=== PATIENT | male | born 1970 | race Caucasian/White ===

== ENCOUNTER 2023-04-03 10:14 | Observation (INO) | payer BC, SELFPAY ==
[2023-04-03] VITALS (8 sets, daily range): BP systolic 119–140; BP diastolic 74–81; PULSE 86–118; RESP 15–20; TEMP 36.5–39.3; O2SAT 93–95; BMI 27.0; BMI 25.3
[2023-04-03 10:42] LABS: Coronavirus 19, PCR Not Detected (NotDetected); Influenza A, PCR Not Detected (NotDetected); Influenza B, PCR Not Detected (NotDetected)
--- NOTE | 2023-04-03 10:44 | ED_ITS ---
Discharge Plan Disposition Chief Complaint: Headache Referrals Follow up/Referrals: Provider,Referral, MD [Referring] - See instructions Clinical Impressions Clinical Impression: Acute hypoxemic respiratory failure Pneumonia Qualifiers: Pneumonia type: due to unspecified organism Laterality: right Lung location: lower lobe of lung Qualified Code(s): J18.9 - Pneumonia, unspecified organism Discharge ED Provider: Ignacio Cortes General Adult HPI General Chief complaint: Headache Stated complaint: headaches, lower back pain chills Time Seen by Provider: 04/03/23 10:17 History of Present Illness HPI narrative: 53-year-old male history of ankylosing spondylitis presenting with fever, rachel ise,, body aches, cough, decreased appetite. Symptoms have been going on for 4 days at this point. He has been taking Tylenol intermittently, this does not seem to help. Lower back does not radiate, no urinary symptoms, no vomiting or GI symptoms. No known sick contacts he knows of. Related Data Allergies Allergy/AdvReac Type Severity Reaction Status Date / Time No Known Allergies Allergy Verified 04/03/23 10:44 [facility] Disclaimer: The information contained in this section may have been updated after the patient was seen, as this information can be updated by other users. Social History Smoking Status: Former smoker alcohol intake: never current occupational status: employed Travel in the last 8 weeks: None ROS Obtained: Yes All systems reviewed & no additional complaints except as documented Physical Exam General General appearance: alert and in no apparent distress Head Head exam: atraumatic and normocephalic Eye Eye exam: Present normal appearance, PERRL and EOMI ENT ENT exam: Present mucous membranes moist Neck Neck exam: Present normal inspection, full ROM and trachea midline Respiratory Respiratory exam: Absent respiratory distress, wheezes, stridor, accessory muscle use or prolonged expiratory phase Cardiovascular Cardiovascular exam: Present normal rhythm Abdominal Exam Abdominal exam: Present soft; Absent distention, tenderness, guarding, rebound or rigidity Extremities Exam Extremities exam: Absent edema Neurological Exam Neurological exam: Present alert, oriented X3, CN II-XII intact and normal gait; Absent motor sensory deficit Skin Skin exam: Present warm and dry; Absent diaphoresis or erythema Medical Decision Making Medical Records Medical records reviewed: Yes I reviewed the patient's medical records. Phu Inquiry Pt receiving controlled substance: No Phu was queried for this patient: No Vital Signs: 04/03/23 10:15 02/07/24 12:17 04/03/23 12:30 Temperature 102.7 F H Temperature Source Oral Pulse Rate 103 H 95 H Pulse Rate [Left Radial] 118 H Respiratory Rate 15 Blood Pressure 133/81 122/78 Blood Pressure [Right Arm] 140/81 Blood Pressure Mean 93 88 Blood Pressure Mean [Right Arm] 100 02 Sat by Pulse Oximetry 95 93 L 93 L Oxygen Delivery Method Room Air Room Air Room Air Lab Data Lab Results 04/03/23 10:27: SARS-CoV-2 (PCR) Not detected, Influenza A Untype (PCR) Not detected, Influenza Type B (PCR) Not detected 04/03/23 12:17: WBC 13.8 H, RBC 4.22 L, Hgb 13.8 L, Hct 39.4 L, MCV 93.4, MCH 32.7 H, MCHC 34.9, RDW 12.7, Plt Count 381, MPV 7.8, Neut % (Auto) 81.9 H, Lymph % (Auto) 9.3 L, [place] % (Auto) 7.9, Eos % (Auto) 0.5, Baso % (Auto) 0.3, Neut # (Auto) 11.3 H, Lymph # (Auto) 1.3, [place] # (Auto) 1.1 H, Eos # (Auto) 0.1, Baso # (Auto) 0.0, Sodium 132 L, Potassium 3.4 L, Chloride 102, Carbon Dioxide 24, Anion Gap 9.4, BUN 12, Creatinine 1.30 H, Estimated Creat Clear 87, Estimated GFR 58 L, Est GFR ( Amer) 70, Glucose 132 H, Calcium 8.6, Total Bilirubin 1.9 H, AST 43, ALT 43, Alkaline Phosphatase 129 H, C-Reactive Protein 266.4 H, Total Protein 7.4, Albumin 3.5, Globulin 3.9 H, Albumin/Globulin Ratio 0.9 L 04/03/23 12:35: Lactate 1.4 04/03/23 12:17 04/03/23 12:17 Orders (Tests/Meds): ED MEDICATIONS Generic Name Dose Route Start Last Admin Trade Name Freq PRN Reason Stop Dose Admin Ceftriaxone Sodium 2 gm/ 100 mls @ 200 mls/hr 04/03/23 12:47 Sodium Chloride IV 04/03/23 13:16 ONCE ONE Discontinued Medications Generic Name Dose Route Start Last Admin Trade Name Ameya PRN Reason Stop Dose Admin Acetaminophen 1,000 mg 04/03/23 10:45 04/03/23 10:45 Acetaminophen 500mg Tab PO 04/03/23 10:46 1,000 mg ONCE ONE Administration Dexamethasone 10 mg 04/03/23 10:39 04/03/23 10:45 Dexamethasone 4mg Tablet PO 04/03/23 10:40 10 mg ONCE ONE Administration Lactated Ringer's 1,000 mls @ 999 mls/hr 04/03/23 11:47 04/03/23 11:56 Lactated Ringer's 1000 Ml Bag IV 04/03/23 12:47 999 mls/hr .Q1H1M ONE Administration Azithromycin 500 mg/ Sodium 250 mls @ 250 mls/hr 04/03/23 12:48 Chloride IV 04/03/23 12:49 ONCE ONE Ibuprofen 600 mg 04/03/23 10:45 04/03/23 10:45 Ibuprofen 600 Mg Tablet PO 04/03/23 10:46 600 mg ONCE ONE Administration Ondansetron HCl 4 mg 04/03/23 11:47 04/03/23 11:56 Ondansetron 4mg/2ml Vial IV 04/03/23 11:48 4 mg ONCE ONE Administration ORDERS Category Date Time Status CXR --portable [XR chest portable] Stat Exams 04/03/23 11:47 Completed CBC w/Auto Diff [Complete Blood Count Auto Diff] Stat Lab 04/03/23 12:17 Results CMP [Comprehensive Metabolic Panel] Stat Lab 04/03/23 12:17 Completed CRP [C-Reactive Protein] Stat Lab 04/03/23 12:17 Completed ESR [Erythrocyte Sedimentation Rate] Stat Lab 04/03/23 12:17 Results Lactic Acid Stat Lab 04/03/23 12:35 Completed Rapid PCR Covid and Flu A/B Stat Lab 04/03/23 10:27 Completed Blood Culture Stat Micro 04/03/23 12:35 Received Medical Decision Narrative: 53-year-old male history of ankylosing spondylitis presenting with fever, mal aise,, body aches, cough, decreased appetite. Symptoms have been going on for 4 days at this point. He has been taking Tylenol intermittently, this does not seem to help. Lower back does not radiate, no urinary symptoms, no vomiting or GI symptoms. No known sick contacts he knows of. History was obtained via conversation with patient. On arrival, patient hemodynamically stable, alert, oriented x4, appropriate, GCS 15, moving all extremities spontaneously, pupils equal and reactive to light. Full physical exam performed and significant for febrile, tachycardic man who appears to be tired, but no acute distress. Lungs are clear to auscultation bilaterally. Heart exam otherwise normal. Moist mucous membranes. Differential includes viral syndrome, among others. Patient was given Decadron, Tylenol, Motrin, for symptomatic management and correction of underlying abnormalities. Workup independently interpreted and significant for leukocytosis 14. Lactate negative. Patient does have KAIDEN with creatinine 1.3 and CRP elevated 260. COVID/flu negative. Chest x-ray with right lower lobe pneumonia. see radiology read for full review of final results. On reevaluation, patient was given azithromycin and ceftriaxone. Hospital medicine contacted and case was discussed at length, see note for recommendations and admission. Given patient presentation, workup, history, this most likely represents right lower lobe pneumonia. Because patient high risk for clinical decompensation, deemed appropriate for inpatient admission. Results were relayed to patient who voiced understanding and patient was agreeable to inpatient admission and management. Patient was admitted to the hospital for further definitive management. Critical Care Critical Care Time Critical Care Time: No
[2023-04-03] MEDS: DEXAMETHASONE 4MG TABLET 10 MG PO (10:45)
[2023-04-03] MEDS: IBUPROFEN 600 MG TABLET PO (10:45)
[2023-04-03] MEDS: ACETAMINOPHEN 500MG TAB 1000 MG PO (10:45)
--- NOTE | 2023-04-03 11:47 | XR_ITS ---
FINAL REPORT CLINICAL HISTORY: cough, fever, back pain FINDINGS: SINGLE-VIEW CHEST The heart size is normal. The mediastinum is normal. There is right base opacity consistent with pneumonia. There is no pneumothorax. IMPRESSION: Right base pneumonia. Reviewed, Interpreted and Dictated by Mitul Kidd III, MD Transcribed by Adri Devries Authenticated and [facility]
[2023-04-03] MEDS: ONDANSETRON 4MG/2ML VIAL 4 MG IV (11:56)
[2023-04-03] MEDS: LACTATED RINGERS 1000ML 1,000 ML 999 ML IV (11:56)
[2023-04-03 12:34] LABS: Basophils % 0.3 % (0.1-2.0); Eosinophils # 0.1 K/mm3 (0.0-0.4); Eosinophils % 0.5 % (0.1-12.0); Hematocrit 39.4 % (42.0-52.0); Hemoglobin 13.8 g/dL (14.1-18.0); Lymphocytes # 1.3 K/mm3 (0.7-4.5); Lymphocytes % 9.3 % (10-50); Mean Corpuscular HGB Conc 34.9 g/dL (31.8-35.4); Mean Corpuscular Hemoglobin 32.7 pg (27.0-31.2); Mean Corpuscular Volume 93.4 fl (80-94); Mean Platelet Volume 7.8 fl (7.4-10.4); Monocytes # 1.1 K/mm3 (0.1-1.0); Monocytes % 7.9 % (1.7-9.3); Neutrophils # 11.3 K/mm3 (1.8-7.8); Neutrophils % 81.9 % (37.0-80.0); Platelet Count 381 K/mm3 (142-424); Red Blood Count 4.22 M/mm3 (4.60-6.20); Red Cell Distribution Width 12.7 % (11.5-17.5); White Blood Count 13.8 K/mm3 (4.8-10.8)
[2023-04-03 12:41] LABS: Chloride 102 mmol/L (98-107); Potassium 3.4 mmoL/L (3.5-5.1); Sodium 132 mmol/L (136-145)
[2023-04-03 12:43] LABS: Blood Urea Nitrogen 12 mg/dl (9-20); Creatinine Clearance Estimated 87 mL/min (50-200); Estimated Glomerular Filt Rate 58 ml/min (>60); GFR (African American) 70 ML/MIN (>60)
[2023-04-03 12:44] LABS: Alanine Aminotransferase 43 U/L (12-78); Albumin Level 3.5 g/dl (3.5-5.0); Albumin/Globulin Ratio 0.9 (1.1-1.8); Alkaline Phosphatase 129 U/L (38-126); Anion Gap 9.4 mEq/L (5-15); Aspartate Amino Transferase 43 U/L (17-59); Bilirubin,Total 1.9 mg/dl (0.2-1.3); Calcium 8.6 mg/dl (8.4-10.2); Carbon Dioxide 24 mmol/L (22.0-30.0); Globulin 3.9 g/dL (1.3-3.2); Glucose 132 mg/dl (74-100); Total Protein,Serum 7.4 g/dl (6.3-8.2)
[2023-04-03 12:54] LABS: C-Reactive Protein 266.4 mg/L (0-4)
[2023-04-03 12:55] LABS: Lactic Acid 1.4 mmol/L (0.7-2.1)
--- NOTE | 2023-04-03 13:02 | PC.NURSE ---
on phone with TREY
[2023-04-03] MEDS: CEFTRIAXONE SODIUM 2 GM in 0.9 % SODIUM CHLORIDE 100 ML IV (13:08)
--- NOTE | 2023-04-03 13:09 | P.HP_ITS ---
History of Present Illness *Admission Date: 04/03/23 *Reason for visit:: weakness, fever *History of present illness: Mr. Daniel is a 53-year-old male with history of ankylosing spondylitis who presented to the ER with worsening fever, body aches, cough and malaise. States symptoms been going on for 4 to 5 days. Has been taking some Tylenol with no significant improvement. Given his worsening symptoms, he reached out to his PCP who recommended he come to the ER for evaluation. Denies nausea or vomiting. No known sick contacts. No syncope. Workup in the ER concerning for sepsis with tachycardia, fever, leukocytosis. Found to have right lower lobe pneumonia on chest imaging. Medicine consulted for admission. Upon arrival to the floor, patient states he is feeling somewhat better. Started on ceftriaxone and azithromycin. [facility] Disclaimer: The information contained in this section may have been updated after the patient was seen, as this information can be updated by other users. Medical History (Updated 04/03/23 @ 16:55 by Jonathan Bravo MD) Ankylosing spondylitis Anxiety Complete tear of medial collateral ligament of knee Hypertension Immunocompromised state Surgical History History of tonsillectomy Status post labral repair of shoulder Family History H/O heart artery stent Mother Social History Smoking Status: Former smoker alcohol intake: never current occupational status: employed Travel in the last 8 weeks: None Review of Systems Review of Systems Review of systems (narrative): 14 point review of systems performed, pertinent positives and negatives as per HPI Meds Home Medications and Allergies Home Medications Medication Instructions Recorded Confirmed Type adalimumab 40 mg/0.8 mL 40 mg SQ WEEKLY 04/03/23 04/03/23 History subcutaneous syringe kit (Humira) amlodipine 5 mg tablet 5 mg PO DAILY 04/03/23 04/03/23 History meclizine 25 mg tablet 12.5 mg PO DAILY PRN allergies 04/03/23 04/03/23 History melatonin 10 mg disintegrating 10 mg PO HS 04/03/23 04/03/23 History tablet quetiapine 100 mg tablet (Seroquel) 100 mg PO HS 04/03/23 04/03/23 History New Prescriptions to Start Prescriptions: Allergies Allergy/AdvReac Type Severity Reaction Status Date / Time No Known Allergies Allergy Verified 04/03/23 10:44 Exam Data for Last 24 hours Vital signs and Labs for Last 24 Hours: Temp Pulse Resp BP Pulse Ox O2 Del Method 102.7 F H 95 H 15 122/78 93 L Room Air 04/03/23 10:15 04/03/23 12:30 04/03/23 10:15 04/03/23 12:30 04/03/23 12:30 04/03/23 12:30 Laboratory Results - last 24 hr 04/03/23 10:27: SARS-CoV-2 (PCR) Not detected, Influenza A Untype (PCR) Not detected, Influenza Type B (PCR) Not detected 04/03/23 12:17: WBC 13.8 H, RBC 4.22 L, Hgb 13.8 L, Hct 39.4 L, MCV 93.4, MCH 32.7 H, MCHC 34.9, RDW 12.7, Plt Count 381, MPV 7.8, Neut % (Auto) 81.9 H, Lymph % (Auto) 9.3 L, [place] % (Auto) 7.9, Eos % (Auto) 0.5, Baso % (Auto) 0.3, Neut # (Auto) 11.3 H, Lymph # (Auto) 1.3, [place] # (Auto) 1.1 H, Eos # (Auto) 0.1, Baso # (Auto) 0.0, Sodium 132 L, Potassium 3.4 L, Chloride 102, Carbon Dioxide 24, Anion Gap 9.4, BUN 12, Creatinine 1.30 H, Estimated Creat Clear 87, Estimated GFR 58 L, Est GFR ( Amer) 70, Glucose 132 H, Calcium 8.6, Total Bilirubin 1.9 H, AST 43, ALT 43, Alkaline Phosphatase 129 H, C-Reactive Protein 266.4 H, Total Protein 7.4, Albumin 3.5, Globulin 3.9 H, Albumin/Globulin Ratio 0.9 L 04/03/23 12:35: Lactate 1.4 I & O for Last 24 hours: Intake & Output 03/31/23 04/01/23 04/02/23 04/03/23 23:59 23:59 23:59 23:59 Weight 92.986 kg Constitutional Constitutional: no acute distress *Routine HEENT Exam Head: Present normocephalic Eye: Present EOMI and PERRL ENT: Present mucous membranes moist *Routine Neck Exam Neck: Present supple; Absent lymphadenopathy *Routine Respiratory Exam Respiratory: Present crackles (Right lower lung, posterior lung field) and normal respiratory effort; Absent rhonchi or wheezes *Routine Cardiovascular Exam Cardiovascular: Present RRR *Routine Abdominal Exam Abdominal: Present soft and normoactive bowel sounds; Absent tenderness *Routine Rectal Exam Rectal:: deferred *Routine Genitalia Exam Genitalia:: deferred *Routine Extremities Exam Extremities: Absent cyanosis, clubbing or edema *Routine Skin Exam Skin: Present warm; Absent rash *Routine Neurological Exam Neurological: Present alert, oriented X3 and moving all extremities; Absent altered mental status Assessment and Plan *Assessment and plan (1) Pneumonia: Status: Acute Qualifiers: Laterality: right Lung location: lower lobe of lung Pneumonia type: due to unspecified organism Qualified Code(s): J18.9 - Pneumonia, unspecified organism Category: Medical Code(s): J18.9 - Pneumonia, unspecified organism (2) Sepsis: Status: Acute Qualifiers: Sepsis acute organ dysfunction status: without acute organ dysfunction Sepsis type: sepsis due to unspecified organism Qualified Code(s): A41.9 - Sepsis, unspecified organism Category: Medical Code(s): A41.9 - Sepsis, unspecified organism (3) Hypertension: Status: Chronic Qualifiers: Hypertension type: primary hypertension Qualified Code(s): I10 - Essential (primary) hypertension Category: Medical Code(s): I10 - Essential (primary) hypertension (4) Immunocompromised state: Status: Chronic Category: Medical Code(s): D84.9 - Immunodeficiency, unspecified Plan 53-year-old male who presented with symptoms of fever and chills. Found to have pneumonia in the ER. Discussed case with ER physician, request admission for IV antibiotics and risk for decompensation given patient's immunocompromise state. Medicine agreed to admit. Meeting sepsis criteria. Problems addressed as follows: Sepsis secondary to pneumonia -Tachycardia, fever 102.7, white cell count 13.8. Chest imaging personally reviewed, right lower lobe consolidation and airspace disease on chest x-ray. -Continue ceftriaxone and azithromycin IV daily. -CRP elevated to 266. Repeat CRP, CBC, CMP, magnesium ordered for the morning -PSI/port a 53 however in light of his immunocompromise state on Humira, necessitates inpatient admission for close monitoring prior to transitioning to oral antibiotics for outpatient therapy Ankylosing spondylitis: Hold Humira in the setting of active infection Hypertension: Hold amlodipine in the setting of normotensive state and sepsis Continue Seroquel and melatonin nightly for sleep Full code Regular diet PLOV
--- NOTE | 2023-04-03 13:22 | PC.NURSE ---
report called to Maria G on second floor
[2023-04-03 13:44] LABS: Erythrocyte Sedimentation Rate 111 mm/hr (0-20)
[2023-04-03] MEDS: AZITHROMYCIN 500 MG in 0.9 % SODIUM CHLORIDE 250 ML 250 MG IV (14:39)
--- NOTE | 2023-04-03 16:35 | PC.NURSE ---
Pt alert and oriented. VSS. Afebrile. On room air. Denies pain and nausea. Voiding via urinal. Tolerating oral intake. Antibiotics administered per APR.
[2023-04-03] MEDS: QUETIAPINE 100MG TABLET 100 MG PO (20:24)
[2023-04-03] MEDS: MELATONIN 10 EACH PO (20:24)
[2023-04-04] VITALS: BP 123/74; PULSE 85; RESP 18; TEMP 36.9; O2SAT 94
[2023-04-04 04:00] VITALS: BP 127/69; PULSE 81; RESP 18; TEMP 36.8; O2SAT 94; BMI 25.9
[2023-04-04 07:23] LABS: Chloride 107 mmol/L (98-107); Potassium 3.8 mmoL/L (3.5-5.1); Sodium 138 mmol/L (136-145)
[2023-04-04 07:25] LABS: Alanine Aminotransferase 41 U/L (12-78); Aspartate Amino Transferase 40 U/L (17-59); Blood Urea Nitrogen 17 mg/dl (9-20); Creatinine Clearance Estimated 99 mL/min (50-200); Estimated Glomerular Filt Rate 70 ml/min (>60); GFR (African American) 85 ML/MIN (>60)
[2023-04-04 07:26] LABS: Albumin Level 3.3 g/dl (3.5-5.0); Albumin/Globulin Ratio 0.9 (1.1-1.8); Alkaline Phosphatase 140 U/L (38-126); Anion Gap 9.8 mEq/L (5-15); Bilirubin,Total 0.7 mg/dl (0.2-1.3); Carbon Dioxide 25 mmol/L (22.0-30.0); Globulin 3.8 g/dL (1.3-3.2); Glucose 168 mg/dl (74-100); Magnesium 2.1 mg/dl (1.6-2.3); Total Protein,Serum 7.1 g/dl (6.3-8.2)
[2023-04-04 07:38] LABS: C-Reactive Protein 220.6 mg/L (0-4)
[2023-04-04 07:39] LABS: Basophils % 0.1 % (0.1-2.0); Eosinophils % 0.2 % (0.1-12.0); Hematocrit 39.1 % (42.0-52.0); Hemoglobin 13.3 g/dL (14.1-18.0); Lymphocytes # 1.3 K/mm3 (0.7-4.5); Mean Corpuscular HGB Conc 34.1 g/dL (31.8-35.4); Mean Corpuscular Hemoglobin 31.1 pg (27.0-31.2); Mean Corpuscular Volume 91.4 fl (80-94); Mean Platelet Volume 7.7 fl (7.4-10.4); Monocytes % 6.3 % (1.7-9.3); Neutrophils # 13.8 K/mm3 (1.8-7.8); Neutrophils % 85.4 % (37.0-80.0); Platelet Count 463 K/mm3 (142-424); Red Blood Count 4.28 M/mm3 (4.60-6.20); Red Cell Distribution Width 12.6 % (11.5-17.5); White Blood Count 16.2 K/mm3 (4.8-10.8)
[2023-04-04 07:58] LABS: MANUAL DIFFERENTIAL MANUAL DIFFERENTIAL (MANUAL DIFF)
[2023-04-04 08:00] VITALS: BP 123/76; PULSE 85; RESP 18; TEMP 37.1; O2SAT 95; O2SAT 98
--- NOTE | 2023-04-04 08:38 | P.DS_ITS ---
General Admission date:: 04/03/23 Discharge date: 04/04/23 HPI HPI HPI: Mr. Daniel is a 53-year-old male with history of ankylosing spondylitis who presented to the ER with worsening fever, body aches, cough and malaise. States symptoms been going on for 4 to 5 days. Has been taking some Tylenol with no significant improvement. Given his worsening symptoms, he reached out to his PCP who recommended he come to the ER for evaluation. Denies nausea or vomiting. No known sick contacts. No syncope. Workup in the ER concerning for sepsis with tachycardia, fever, leukocytosis. Found to have right lower lobe pneumonia on chest imaging. Medicine consulted for admission. Upon arrival to the floor, patient states he is feeling somewhat better. Started on ceftriaxone and azithromycin. Hospital Course Hospital Course Hospital Course: 53-year-old male who presented with symptoms of fever and chills. Found to have pneumonia in the ER. Discussed case with ER physician, request admission for IV antibiotics and risk for decompensation given patient's immunocompromise state. Medicine agreed to admit. Meeting sepsis criteria. Symptoms improved significantly over admission. Remained stable on room air. No fever over 24 hours. White cell count still elevated but given stability clinically, will transition to oral antibiotics to complete therapy. Problems addressed as follows: Sepsis secondary to pneumonia -Tachycardia, fever 102.7, white cell count 13.8. Chest imaging personally reviewed, right lower lobe consolidation and airspace disease on chest x-ray. Crackles on exam. Initiated on ceftriaxone and azithromycin. Received 48 hours of IV antibiotics. Will transition to oral azithromycin to complete 3-day course of 500 mg daily. Complete 5 days of cefdinir for total of 7 days of cephalosporin therapy. CRP improving but still quite elevated. Given clinical stability, anticipate resolution with antibiotic therapy. Would benefit from repeat imaging in 2 to 4 weeks to monitor for resolution. PSI/port a 52. Risk class II. Recommend holding Humira until infection resolves. Has follow-up with rheumatology next week per his report. Ankylosing spondylitis: Hold Humira in the setting of active infection Hypertension: Held amlodipine in the setting of normotensive state and sepsis. resume at discharge Continue Seroquel and melatonin nightly for sleep Stable for discharge home. Spent 30 minutes in discharge counseling, documentation, chart review, and direct care with patient. Exam Data for Last 24 hours Vital signs and Labs for Last 24 Hours: Temp Pulse Resp BP Pulse Ox O2 Del Method 98.8 F 85 18 123/76 95 Room Air 04/04/23 08:00 04/04/23 08:00 04/04/23 08:00 04/04/23 08:00 04/04/23 08:00 04/04/23 08:38 Laboratory Results - last 24 hr 04/03/23 10:27: SARS-CoV-2 (PCR) Not detected, Influenza A Untype (PCR) Not detected, Influenza Type B (PCR) Not detected 04/03/23 12:17: WBC 13.8 H, RBC 4.22 L, Hgb 13.8 L, Hct 39.4 L, MCV 93.4, MCH 32.7 H, MCHC 34.9, RDW 12.7, Plt Count 381, MPV 7.8, Neut % (Auto) 81.9 H, Lymph % (Auto) 9.3 L, Garrard % (Auto) 7.9, Eos % (Auto) 0.5, Baso % (Auto) 0.3, Neut # (Auto) 11.3 H, Lymph # (Auto) 1.3, Garrard # (Auto) 1.1 H, Eos # (Auto) 0.1, Baso # (Auto) 0.0, ESR 111 H, Sodium 132 L, Potassium 3.4 L, Chloride 102, Carbon Dioxide 24, Anion Gap 9.4, BUN 12, Creatinine 1.30 H, Estimated Creat Clear 87, Estimated GFR 58 L, Est GFR ( Amer) 70, Glucose 132 H, Calcium 8.6, Total Bilirubin 1.9 H, AST 43, ALT 43, Alkaline Phosphatase 129 H, C-Reactive Protein 266.4 H, Total Protein 7.4, Albumin 3.5, Globulin 3.9 H, Albumin/Globulin Ratio 0.9 L 04/03/23 12:35: Lactate 1.4 04/04/23 06:43: WBC 16.2 H, RBC 4.28 L, Hgb 13.3 L, Hct 39.1 L, MCV 91.4, MCH 31.1, MCHC 34.1, RDW 12.6, Plt Count 463 H, MPV 7.7, Neut % (Auto) 85.4 H, Lymph % (Auto) 8.0 L, Garrard % (Auto) 6.3, Eos % (Auto) 0.2, Baso % (Auto) 0.1, Neut # (Auto) 13.8 H, Lymph # (Auto) 1.3, Garrard # (Auto) 1.0, Eos # (Auto) 0.0, Baso # (Auto) 0.0, Sodium 138, Potassium 3.8, Chloride 107, Carbon Dioxide 25, Anion Gap 9.8, BUN 17 D, Creatinine 1.10, Estimated Creat Clear 99, Estimated GFR 70, Est GFR ( Amer) 85 D, Glucose 168 H D, Calcium 9.0, Magnesium 2.1, Total Bilirubin 0.7, AST 40, ALT 41, Alkaline Phosphatase 140 H, C-Reactive Protein 220.6 H, Total Protein 7.1, Albumin 3.3 L, Globulin 3.8 H, Albumin/Globulin Ratio 0.9 L I & O for Last 24 hours: Intake & Output 04/01/23 04/02/23 04/03/23 04/04/23 23:59 23:59 23:59 23:59 Intake Total 1220 / 1220 Output Total 650 / 650 0 / 0 Balance 570 / 570 0 / 0 Weight 87.203 kg 88.813 kg Constitutional Constitutional: no acute distress *Routine HEENT Exam Head: Present normocephalic Eye: Present EOMI and PERRL ENT: Present mucous membranes moist *Routine Neck Exam Neck: Present supple; Absent lymphadenopathy *Routine Respiratory Exam Respiratory: Present crackles (right lower lobe) and normal respiratory effort; Absent rhonchi or wheezes *Routine Cardiovascular Exam Cardiovascular: Present RRR *Routine Abdominal Exam Abdominal: Present soft and normoactive bowel sounds; Absent tenderness *Routine Rectal Exam Patient deferred: visual exam *Routine Exam Patient deferred: penile exam *Routine Extremities Exam Extremities: Absent cyanosis, clubbing or edema *Routine Skin Exam Skin: Present warm; Absent rash *Routine Neurological Exam Neurological: Present alert, oriented X3 and moving all extremities; Absent altered mental status Results Data Completed and Pending Labs on day of discharge: Labs from last 24 hours 04/04/23 04/03/23 04/03/23 06:43 12:35 12:17 WBC 16.2 H 13.8 H RBC 4.28 L 4.22 L Hgb 13.3 L 13.8 L Hct 39.1 L 39.4 L MCV 91.4 93.4 MCH 31.1 32.7 H MCHC 34.1 34.9 RDW 12.6 12.7 Plt Count 463 H 381 MPV 7.7 7.8 Neut % (Auto) 85.4 H 81.9 H Lymph % (Auto) 8.0 L 9.3 L Garrard % (Auto) 6.3 7.9 Eos % (Auto) 0.2 0.5 Baso % (Auto) 0.1 0.3 Neut # (Auto) 13.8 H 11.3 H Lymph # (Auto) 1.3 1.3 Garrard # (Auto) 1.0 1.1 H Eos # (Auto) 0.0 0.1 Baso # (Auto) 0.0 0.0 ESR 111 H Sodium 138 132 L Potassium 3.8 3.4 L Chloride 107 102 Carbon Dioxide 25 24 Anion Gap 9.8 9.4 BUN 17 D 12 Creatinine 1.10 1.30 H Estimated Creat Clear 99 87 Estimated GFR 70 58 L Est GFR ( Amer) 85 D 70 Glucose 168 H D 132 H Lactate 1.4 Calcium 9.0 8.6 Magnesium 2.1 Total Bilirubin 0.7 1.9 H AST 40 43 ALT 41 43 Alkaline Phosphatase 140 H 129 H C-Reactive Protein 220.6 H 266.4 H Total Protein 7.1 7.4 Albumin 3.3 L 3.5 Globulin 3.8 H 3.9 H Albumin/Globulin Ratio 0.9 L 0.9 L SARS-CoV-2 (PCR) Influenza A Untype (PCR) Influenza Type B (PCR) 04/03/23 10:27 WBC RBC Hgb Hct MCV MCH MCHC RDW Plt Count MPV Neut % (Auto) Lymph % (Auto) Garrard % (Auto) Eos % (Auto) Baso % (Auto) Neut # (Auto) Lymph # (Auto) Garrard # (Auto) Eos # (Auto) Baso # (Auto) ESR Sodium Potassium Chloride Carbon Dioxide Anion Gap BUN Creatinine Estimated Creat Clear Estimated GFR Est GFR ( Amer) Glucose Lactate Calcium Magnesium Total Bilirubin AST ALT Alkaline Phosphatase C-Reactive Protein Total Protein Albumin Globulin Albumin/Globulin Ratio SARS-CoV-2 (PCR) Not detected Influenza A Untype (PCR) Not detected Influenza Type B (PCR) Not detected DS: Diagnosis Discharge Diagnosis (1) Pneumonia: Status: Acute Code(s): J18.9 - Pneumonia, unspecified organism Qualifiers: Laterality: right Lung location: lower lobe of lung Pneumonia type: due to unspecified organism Qualified Code(s): J18.9 - Pneumonia, unspecified organism (2) Sepsis: Status: Acute Code(s): A41.9 - Sepsis, unspecified organism Qualifiers: Sepsis acute organ dysfunction status: without acute organ dysfunction Sepsis type: sepsis due to unspecified organism Qualified Code(s): A41.9 - Sepsis, unspecified organism (3) Hypertension: Status: Chronic Code(s): I10 - Essential (primary) hypertension Qualifiers: Hypertension type: primary hypertension Qualified Code(s): I10 - Essential (primary) hypertension (4) Immunocompromised state: Status: Chronic Code(s): D84.9 - Immunodeficiency, unspecified Meds Home Medications and Allergies Home Medications Medication Instructions Recorded Confirmed Type adalimumab 40 mg/0.8 mL 40 mg SQ WEEKLY 04/03/23 04/03/23 History subcutaneous syringe kit (Humira) amlodipine 5 mg tablet 5 mg PO DAILY 04/03/23 04/03/23 History meclizine 25 mg tablet 12.5 mg PO DAILY PRN allergies 04/03/23 04/03/23 History melatonin 10 mg disintegrating 10 mg PO HS 04/03/23 04/03/23 History tablet quetiapine 100 mg tablet (Seroquel) 100 mg PO HS 04/03/23 04/03/23 History azithromycin 500 mg tablet 500 mg PO DAILY 1 day #1 tab 04/04/23 Rx cefdinir 300 mg capsule 300 mg PO BID 5 days #10 caps 04/04/23 Rx New Prescriptions to Start Prescriptions: Jonathan Nolen cefdinir Jonathan Bravo Allergies Allergy/AdvReac Type Severity Reaction Status Date / Time No Known Allergies Allergy Verified 04/03/23 10:44 Discharge Plan Disposition Patient Disposition: Home, Self-Care Condition: Fair Follow up Plan Follow up with: Ernestine Arora [Primary Care Provider] - 04/16/23 9:00 am Prescriptions/Medication Reconciliation: New azithromycin 500 mg tablet 500 mg PO DAILY 1 Days Qty: 1 0RF Rx Instructions: take dose on 04/05/23 cefdinir 300 mg capsule 300 mg PO BID 5 Days Qty: 10 0RF Rx Instructions: first dose morning of 04/04/23 Continued amlodipine 5 mg Tablet 5 mg PO DAILY quetiapine [Seroquel] 100 mg Tablet 100 mg PO HS meclizine 25 mg Tablet 12.5 mg PO DAILY PRN (Reason: allergies) melatonin 10 mg Tablet,Disintegrating 10 mg PO HS Held Humira 40 mg/0.8 mL Syringe Kit 40 mg SQ WEEKLY Hold Instructions: 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 Problem Reconciliation Problems Reviewed?: Yes Patient Discharge Instructions ACTIVITY: Continue current activity DIET: continue same diet Stand Alone Forms: [facility] Work Release Patient Instructions: DI for Pneumonia -- Adult, DI for Sepsis -- Adult Providers Primary Care Provider: Ernestine Arora Admit Provider: Jonathan Bravo Attending Provider: Jonathan Bravo
[2023-04-04] MEDS: CEFTRIAXONE SODIUM 1 GM in 0.9 % SODIUM CHLORIDE 50 ML IV (10:02)
[2023-04-04 10:49] LABS: Lymphocytes % 14 % (10-50); Monocytes % 4 % (2-9); Neutrophils % 82 % (42-76); Platelet Estimate Normal; RBC Morphology Normal; Total Cells Counted 100
[2023-04-04] MEDS: AZITHROMYCIN 500 MG in 0.9 % SODIUM CHLORIDE 250 ML 250 MG IV (11:51)
--- NOTE | 2023-04-05 13:23 | CARE MANAGER ---
Contacted patient related to hospital discharge. He states he is doing better. He picked up all his meds and is aware of follow up appointment. [facility]
== END 2023-04-04 13:15 | disposition home or self-care (01) ==
LOC: ER 11:22 → 2ND 13:13
PROVIDERS: Admitting Provider Internal Medicine Adolescent Medicine; Emergency Provider Emergency Medicine; PCP Family Medicine; Visit Provider Internal Medicine Adolescent Medicine
DX: J18.9 Pneumonia, unspecified organism (principal); Z87.891 Personal history of nicotine dependence; N17.9 Acute kidney failure, unspecified; A41.9 Sepsis, unspecified organism; I10 Essential (primary) hypertension; D84.9 Immunodeficiency, unspecified
CPT/HCPCS: 36415; 71045; 80053; 83605; 83735; 85007; 85025; 85651; 86140; 87040; 87636; 99285; G0378; J0456; J0696; J2405

== ENCOUNTER 2023-04-27 10:29 | Observation (INO) | payer BC, SELFPAY ==
[2023-04-27] VITALS (11 sets, daily range): BP systolic 123–161; BP diastolic 78–115; PULSE 68–101; RESP 15–18; TEMP 36.7–36.8; O2SAT 94–98; BMI 25.7
--- NOTE | 2023-04-27 10:28 | ECG_ITS ---
APPROVED REPORT Exam: Resting ECG HR:128 bpm ECG Measurements Heart Rate 128 AXES NC 175 P 71 QRSd 104 QRS -19 QT 396 T 73 QTc 472 Conclusion SINUS TACHYCARDIA O/w NORMAL ECG UNCONFIRMED REPORT Electronically signed by : Naseem Santana MD 04/27/2023 17:02:15
[2023-04-27] MEDS: ACETAMINOPHEN 1,000MG/100ML VIAL 1000 MG IV (10:34)
[2023-04-27] MEDS: KETOROLAC 30MG/ML VIAL 30 MG IV (10:34)
--- NOTE | 2023-04-27 10:38 | CT_ITS ---
PROCEDURE INFORMATION: Exam: CTA Chest With Contrast Exam date and time: 04/27/2023 11:32 AM Age: 53 years old Clinical indication: Chest wall pain; Additional info: Severe L chest/flank pain rad to back TECHNIQUE: Imaging protocol: Computed tomographic angiography of the chest with contrast. Exam focused on the arteries. 3D rendering (Not supervised by radiologist): MIP and/or 3D reconstructed images were created by the technologist. Total images: 303 Radiation optimization: All CT scans at this facility use at least one of these dose optimization techniques: automated exposure control; mA and/or kV adjustment per patient size (includes targeted exams where dose is matched to clinical indication); or iterative reconstruction. Contrast material: ISOVUE; Contrast volume: 100 ml; Contrast route: INTRAVENOUS (IV); COMPARISON: CR XR CHEST PORTABLE 04/03/2023 11:49 AM FINDINGS: Pulmonary arteries: Filling defects present within the segmental and subsegmental pulmonary arteries to both lung bases, consistent with pulmonary emboli. Aorta: No evidence of aortic dissection. Lungs: Filling defect present within the pulmonary artery to the right middle lobe as well. Atelectatic changes noted within both lung bases and right middle lobe. Pleural spaces: Unremarkable. No pneumothorax. No pleural effusion. Heart: No evidence of right heart strain. Lymph nodes: Unremarkable. No enlarged lymph nodes. Diaphragm: There is nonspecific elevation of the right hemidiaphragm. Bones/joints: The thoracic spine demonstrates mild degenerative changes at multiple levels. Soft tissues: Gynecomastia is noted. IMPRESSION: 1. Pulmonary emboli present within the segmental and subsegmental arteries to both lung bases and right middle lobe. 2. No evidence of right heart strain. 3. No evidence of aortic dissection. 4. Atelectatic changes noted within both lung bases and right middle lobe.
--- NOTE | 2023-04-27 10:38 | CT_ITS ---
PROCEDURE INFORMATION: Exam: CTA Abdomen and Pelvis With Contrast Exam date and time: 04/27/2023 11:32 AM Age: 53 years old Clinical indication: Abdominal pain; Flank; Left upper quadrant (luq); Additional info: Severe L chest/flank pain rad to back TECHNIQUE: Imaging protocol: Computed tomographic angiography of the abdomen and pelvis with contrast. Exam focused on the arteries. 3D rendering (Not supervised by radiologist): MIP and/or 3D reconstructed images were created by the technologist. Total images: 938 Radiation optimization: All CT scans at this facility use at least one of these dose optimization techniques: automated exposure control; mA and/or kV adjustment per patient size (includes targeted exams where dose is matched to clinical indication); or iterative reconstruction. Contrast material: ISOVUE; Contrast volume: 100 ml; Contrast route: INTRAVENOUS (IV); COMPARISON: CT ANGIO CHEST PE PROTOCOL 04/27/2023 11:32 AM FINDINGS: Aorta: No evidence of aortic dissection. Celiac trunk and mesenteric arteries: No occlusion or significant stenosis. Renal arteries: No occlusion or significant stenosis. Right iliac arteries: No occlusion or significant stenosis. Left iliac arteries: No occlusion or significant stenosis. Liver: There is a diffuse decrease in hepatic parenchymal density, consistent with mild fatty infiltration. Gallbladder and bile ducts: Unremarkable. No calcified stones. No ductal dilation. Pancreas: Unremarkable. No mass. No ductal dilation. Spleen: Unremarkable. No splenomegaly. Adrenal glands: Unremarkable. No mass. Kidneys and ureters: No renal calcifications or obstructive uropathy. Stomach and bowel: Mild thickening of the dean of the rectosigmoid colon consistent with mild colitis. Mild diverticulosis is present in the distal colon. Appendix: No evidence of appendicitis. Intraperitoneal space: Unremarkable. No free air. No significant fluid collection. Lymph nodes: Unremarkable. No enlarged lymph nodes. Urinary bladder: Unremarkable. No mass. Reproductive: Unremarkable as visualized. Bones/joints: The lumbar spine demonstrates mild degenerative changes at multiple levels. Soft tissues: Unremarkable. IMPRESSION: 1. Mild thickening of the dean of the rectosigmoid colon consistent with mild colitis. 2. There is a diffuse decrease in hepatic parenchymal density, consistent with mild fatty infiltration. 3. No evidence of aortic dissection. 4. No renal calcifications or obstructive uropathy. 5. Mild diverticulosis is present in the distal colon.
--- NOTE | 2023-04-27 10:39 | ED_ITS ---
Discharge Plan Disposition Patient Disposition: Admitted Condition: Good Clinical Impressions Clinical Impression: Bilateral pulmonary embolism, Hypokalemia, Chest pain, Abdominal pain, Colitis Discharge ED Provider: Ashlie Grover General Adult HPI General Chief complaint: PAIN Stated complaint: soa Time Seen by Provider: 04/27/23 10:30 Mode of Arrival: Ambulatory Source of Information: Patient Limitations: No Limitations Description of Symptoms (Recalled from ER Triage Doc. by RN): 53 yo M presents to ED with c/o pain in left side. pt reports pain began a few days ago. pt was able to go to work last night, he went home and got a little bit of rest but when he woke up the pain was worse. pt reports he is unable to take a deepbreathe due to thepain. History of Present Illness HPI narrative: This patient is a 53-year-old male with a history of ankylosing spondylitis with admission approximately 1 month ago for pneumonia and respiratory failure pres enting to the emergency department for evaluation with concern for severe left- sided chest/flank pain that goes all the way down his side into his back. He states that it started on , but has significantly worsened since then. He was able to work last night, but after waking up this morning the pain is significantly worse. He states that he is unable to take a deep breath secondary to pain. He denies experiencing anything like this in the past. He denies any recent fevers, chills, cough, congestion, vomiting, nausea, changes in bowel movements, rashes, or swelling. He also denies any urinary symptoms. He denies any recent falls or traumatic injuries. Related Data Home Medications Medication Instructions Recorded Confirmed adalimumab 40 mg/0.8 mL 40 mg SQ WEEKLY 04/03/23 04/27/23 subcutaneous syringe kit (Humira) amlodipine 5 mg tablet 5 mg PO DAILY 04/03/23 04/27/23 meclizine 25 mg tablet 12.5 mg PO DAILY PRN allergies 04/03/23 04/27/23 melatonin 10 mg disintegrating 10 mg PO HS 04/03/23 04/27/23 tablet quetiapine 100 mg tablet (Seroquel) 100 mg PO HS 04/03/23 04/27/23 multivitamin 1 tab PO DAILY 04/27/23 04/27/23 Allergies Allergy/AdvReac Type Severity Reaction Status Date / Time No Known Allergies Allergy Verified 04/03/23 10:44 [facility] Disclaimer: The information contained in this section may have been updated after the patient was seen, as this information can be updated by other users. Medical History Ankylosing spondylitis Anxiety Complete tear of medial collateral ligament of knee Hypertension Immunocompromised state Surgical History History of tonsillectomy Status post labral repair of shoulder Family History Mother H/O heart artery stent Social History (Updated 04/27/23 @ 14:53 by Ronaldo Sargent RN) Smoking Status: Former smoker alcohol intake: never current occupational status: employed Travel in the last 8 weeks: None ROS Obtained: Yes All systems reviewed & no additional complaints except as documented Physical Exam General General appearance: alert and in distress Comment: In distress secondary to pain Head Head exam: atraumatic and normocephalic Eye Eye exam: Present normal appearance, PERRL and EOMI ENT ENT exam: Present normal exam, normal oropharynx, mucous membranes moist and normal external ear exam Neck Neck exam: Present normal inspection, full ROM and trachea midline; Absent tenderness Chest Chest inspection: Present symmetric chest wall rise and tenderness (Left side) Respiratory Respiratory exam: Present other (Splinting respirations secondary to pain. Tachypnea); Absent wheezes or stridor Cardiovascular Cardiovascular exam: Present normal rhythm and tachycardia Abdominal Exam Abdominal exam: Present soft, tenderness (Left-sided abdomen), guarding (Left side of the abdomen) and normal bowel sounds; Absent distention, rebound or rigidity Extremities Exam Extremities exam: Present normal inspection, full ROM and normal capillary refill; Absent tenderness or edema Back Exam Back exam: Present normal inspection and full ROM; Absent tenderness Neurological Exam Neurological exam: Present alert, oriented X3, CN II-XII intact and normal gait; Absent motor sensory deficit Psychiatric Psychiatric exam: Present agitated and anxious Skin Skin exam: Present warm and dry Medical Decision Making Medical Records Medical records reviewed: Yes I reviewed the patient's medical records. Phu Inquiry Pt receiving controlled substance: No Vital Signs: 04/27/23 10:29 04/27/23 11:47 04/27/23 12:00 Temperature 98.0 F Temperature Source Oral Pulse Rate 96 H 92 H Pulse Rate [Left Radial] 68 Respiratory Rate 15 Blood Pressure 139/99 H 135/90 Blood Pressure [Right Arm] 156/94 H Blood Pressure Mean Blood Pressure Mean [Right Arm] 114 Blood Pressure Source [Right Arm] 02 Sat by Pulse Oximetry 98 96 97 Oxygen Delivery Method Room Air Room Air Room Air 04/27/23 12:31 04/27/23 13:00 04/27/23 13:38 Temperature 98.0 F Temperature Source Oral Pulse Rate 97 H 100 H Pulse Rate [Left Radial] 93 H Respiratory Rate 18 Blood Pressure 156/96 H 147/94 H Blood Pressure [Right Arm] 161/115 H Blood Pressure Mean Blood Pressure Mean [Right Arm] 130 Blood Pressure Source [Right Arm] Automatic Cuff 02 Sat by Pulse Oximetry 95 97 94 L Oxygen Delivery Method Room Air Room Air Room Air 04/27/23 13:54 04/27/23 13:30 Temperature 98.0 F Temperature Source Pulse Rate 101 H 101 H Pulse Rate [Left Radial] Respiratory Rate 15 Blood Pressure 161/115 H 161/115 H Blood Pressure [Right Arm] Blood Pressure Mean 127 Blood Pressure Mean [Right Arm] Blood Pressure Source [Right Arm] 02 Sat by Pulse Oximetry 97 Oxygen Delivery Method Lab Data Lab results reviewed: Yes I reviewed the patient's lab results. Lab Results 04/27/23 10:33: WBC 9.8, RBC 4.54 L, Hgb 14.5, Hct 45.0, MCV 99.2 H, MCH 31.9 H, MCHC 32.2, RDW 13.1, Plt Count 422, MPV 7.8, Neut % (Auto) 49.2, Lymph % (Auto) 38.1, [place] % (Auto) 8.3, Eos % (Auto) 3.6, Baso % (Auto) 0.9, Neut # (Auto) 4.8, Lymph # (Auto) 3.7, [place] # (Auto) 0.8, Eos # (Auto) 0.4, Baso # (Auto) 0.1, PT 11.4, INR 1.06, APTT 32.0 H, Sodium 143, Potassium 3.1 L, Chloride 106, Carbon Dioxide 30, Anion Gap 10.1, BUN 8 L, Creatinine 1.00, Estimated Creat Clear 108, Estimated GFR 78, Est GFR ( Amer) 95, Glucose 114 H, Calcium 8.8, Total Bilirubin 0.9, AST 27, ALT 23, Alkaline Phosphatase 111, Troponin I < 0.01, Total Protein 7.5, Albumin 4.0, Globulin 3.5 H, Albumin/Globulin Ratio 1.1, Lipase 231 04/27/23 11:06: Lactate 1.2 04/27/23 11:57: Urine Color Yellow, Urine Appearance Clear, Urine pH 6.0, Ur Specific [place] 1.010, Urine Protein Negative, Urine Glucose (UA) Negative, Urine Ketones Negative, Urine Blood Trace-i, Urine Nitrate Negative, Urine Bilirubin Negative, Urine Urobilinogen 0.2, Ur Leukocyte Esterase Negative, Urine RBC Occasional, Urine WBC None, Ur Squamous Epith Cells Occasional, Urine Bacteria Trace 04/27/23 10:33 04/27/23 10:33 Orders (Tests/Meds): ED MEDICATIONS Generic Name Dose Route Start Last Admin Trade Name Freq PRN Reason Stop Dose Admin Acetaminophen 650 mg 04/27/23 15:40 Acetaminophen 325mg Tab PO 05/27/23 15:39 Q4HP PRN Fever or Mild Pain (1-3) Al Hydrox/Mg Hydrox/Simethicone 30 ml 04/27/23 15:40 Aluminum/Magnesium/Simethicone 30ml Udc PO 05/27/23 15:39 QIDP PRN Dyspepsia Enoxaparin Sodium 90 mg 04/27/23 13:00 04/27/23 13:07 Enoxaparin 100mg/Ml Syringe 1 mg/kg (90 mg) 05/27/23 12:59 90 mg SQ Administration Q12H PARVEEN Piperacillin Sod/Tazobactam 50 mls @ 100 mls/hr 04/27/23 15:45 Sod 3.375 gm/ Sodium Chloride IV 05/07/23 15:44 Q8H PARVEEN Sodium Chloride 1,000 mls @ 50 mls/hr 04/27/23 15:45 Sod Chlor 0.9% 1000ml Bag IV 05/27/23 15:44 .Q20H PARVEEN Ondansetron HCl 4 mg 04/27/23 15:40 Ondansetron 4mg/2ml Vial IV 05/27/23 15:39 Q8HP PRN Nausea Sodium Chloride 10 ml 04/27/23 11:44 04/27/23 11:46 Sodium Chloride 0.9% 10ml Syr (Rad Only) IV 05/27/23 11:43 10 ml NEEDED PRN Administration Maintain IV Site Sodium Chloride 10 ml 04/27/23 15:40 Sodium Chloride 0.9% 10ml Flush Syringe IV 05/27/23 15:39 NEEDED PRN Maintain IV Site Discontinued Medications Generic Name Dose Route Start Last Admin Trade Name Freq PRN Reason Stop Dose Admin Acetaminophen 1,000 mg 04/27/23 10:32 04/27/23 10:34 Acetaminophen 1,000mg/100ml Vial IV 04/27/23 10:33 1,000 mg ONCE ONE Administration Lactated Ringer's 1,000 mls @ 999 mls/hr 04/27/23 10:39 04/27/23 10:53 Lactated Ringer's 1000 Ml Bag IV 04/27/23 11:39 999 mls/hr .Q1H1M ONE Administration Iopamidol 100 ml 04/27/23 11:44 04/27/23 11:46 Iopamidol-370 (76%);100ml Bottle IV 04/27/23 11:45 100 ml ONCE ONE Administration Ketorolac Tromethamine 30 mg 04/27/23 10:33 04/27/23 10:34 Ketorolac 30mg/Ml Vial IV 04/27/23 10:34 30 mg ONCE ONE Administration Morphine Sulfate 4 mg 04/27/23 10:39 04/27/23 10:53 Morphine 4mg/Ml Syringe IV 04/27/23 10:40 4 mg ONCE ONE Administration Ondansetron HCl 4 mg 04/27/23 10:39 04/27/23 10:53 Ondansetron 4mg/2ml Vial IV 04/27/23 10:40 4 mg ONCE ONE Administration Oxycodone HCl 5 mg 04/27/23 12:31 04/27/23 13:07 Oxycodone 5mg Immediate Release Tablet PO 04/27/23 12:32 5 mg ONCE ONE Administration Potassium Chloride 40 meq 04/27/23 11:23 04/27/23 11:49 Potassium Chloride 20meq Tab PO 04/27/23 11:24 40 meq ONCE ONE Administration Rivaroxaban 1 packet 04/27/23 12:31 04/27/23 12:56 Xarelto 15mg Thp 1 Packet Eyal PO 04/27/23 12:32 Not Given ONCE ONE Sodium Chloride 50 ml 04/27/23 11:44 04/27/23 11:46 0.9 % Sodium Chloride 50 Ml Vial IV 04/27/23 11:45 50 ml ONCE ONE Administration ORDERS Category Date Time Status CT angio abdomen pelvis Stat Cat Scan 04/27/23 10:[address] angio chest PE protocol Stat Cat Scan 04/27/23 10:38 Completed Activated Partial Thrombo Time Stat Lab 04/27/23 10:33 Completed Complete Blood Count Auto Diff Stat Lab 04/27/23 10:33 Completed Comprehensive Metabolic Panel Stat Lab 04/27/23 10:33 Completed Lactic Acid Stat Lab 04/27/23 11:06 Completed Lipase Stat Lab 04/27/23 10:33 Completed Prothrombin Time INR Stat Lab 04/27/23 10:33 Completed Troponin I Q3H Lab 04/27/23 13:30 Completed Troponin I Q3H Lab 04/27/23 16:45 Ordered Troponin I Stat Lab 04/27/23 10:33 Completed Urinalysis and Microscopic Stat Lab 04/27/23 11:57 Completed ECG Data Tracing #1: I reviewed this ECG and interpreted as documented below: Sinus tachycardia with a ventricular rate of 128 bpm. Motion artifact noted, however no obvious acute ST elevations concerning for STEMI. Normal intervals ECG initial impression date: 04/27/23 ECG initial impression time: 10:30 Medical Decision Narrative: In summary, this patient is a 53-year-old male presenting to the Emergency Department for evaluation of severe left chest and abdominal pain that started on but acutely worsened this morning. Differential diagnoses considered include but are not limited to ACS, pneumonia, pleurisy, PE, aortic dissection, colitis, pyelonephritis, ureterolithiasis, bowel ischemia. Ruling out the most morbid conditions drove assessment. Patient presents in distress secondary to pain with splinted respirations and significant tenderness of the left side of his abdomen. Workup included CBC, CMP, lipase, lactic acid, urinalysis, troponin, CTA of the chest, CTA of the abdomen pelvis, and EKG. EKG demonstrates significant motion artifact given the patient's condition, however no obvious acute ST changes. Patient was given a bolus of IV fluids as well as IV morphine, Zofran, Toradol, and acetaminophen for symptomatic improvement. I independently interpreted CT scans prior to the radiologist read and noted pulmonary emboli as well as colonic inflammation concerning for colitis. Please see their read for final interpretation. Labs were obtained that demonstrated hypokalemia with a potassium of 3.1, for which oral potassium was given. No other acutely concerning abnormalities based on lab evaluation. Initial troponin is undetectable.. On reassessment, the patient is resting comfortably. His oxygen saturation is 96% on room air, but he is mildly tachycardic. He states he is feeling much better overall. Given that he has segmental and subsegmental PEs on both sides without evidence of right heart strain, I feel he would benefit from anticoagulation. I explained all the risks and benefits of anticoagulation, including increased risk of bleeding such as brain bleeds and intestinal bleeding. I explained that this could be on an outpatient basis, however the patient has had difficult to control symptoms including pain and also has a con commitment colitis. Given all of these things and how bad he has been feeling, he elects for admission, as he does not feel comfortable with discharge. Patient was given therapeutic Lovenox as well as oral oxycodone and was admitted to the hospitalist after an interactive discussion in stable condition for further evaluation and management. Critical Care Critical Care Time Critical Care Time: No
[2023-04-27 10:44] LABS: Basophils # 0.1 K/mm3 (0-0.2); Basophils % 0.9 % (0.1-2.0); Eosinophils # 0.4 K/mm3 (0.0-0.4); Eosinophils % 3.6 % (0.1-12.0); Hemoglobin 14.5 g/dL (14.1-18.0); Lymphocytes # 3.7 K/mm3 (0.7-4.5); Lymphocytes % 38.1 % (10-50); Mean Corpuscular HGB Conc 32.2 g/dL (31.8-35.4); Mean Corpuscular Hemoglobin 31.9 pg (27.0-31.2); Mean Corpuscular Volume 99.2 fl (80-94); Mean Platelet Volume 7.8 fl (7.4-10.4); Monocytes # 0.8 K/mm3 (0.1-1.0); Monocytes % 8.3 % (1.7-9.3); Neutrophils # 4.8 K/mm3 (1.8-7.8); Neutrophils % 49.2 % (37.0-80.0); Platelet Count 422 K/mm3 (142-424); Red Blood Count 4.54 M/mm3 (4.60-6.20); Red Cell Distribution Width 13.1 % (11.5-17.5); White Blood Count 9.8 K/mm3 (4.8-10.8)
[2023-04-27] MEDS: MORPHINE 4MG/ML SYRINGE 4 MG IV (10:53)
[2023-04-27] MEDS: ONDANSETRON 4MG/2ML VIAL 4 MG IV (10:53)
[2023-04-27] MEDS: LACTATED RINGERS 1000ML 1,000 ML 999 ML IV (10:53)
--- NOTE | 2023-04-27 10:55 | PC.NURSE ---
Pt provided with warm blanket. Call light within reach.
[2023-04-27 11:05] LABS: Alanine Aminotransferase 23 U/L (12-78); Albumin/Globulin Ratio 1.1 (1.1-1.8); Alkaline Phosphatase 111 U/L (38-126); Anion Gap 10.1 mEq/L (5-15); Aspartate Amino Transferase 27 U/L (17-59); Bilirubin,Total 0.9 mg/dl (0.2-1.3); Blood Urea Nitrogen 8 mg/dl (9-20); Calcium 8.8 mg/dl (8.4-10.2); Carbon Dioxide 30 mmol/L (22.0-30.0); Chloride 106 mmol/L (98-107); Creatinine Clearance Estimated 108 mL/min (50-200); Estimated Glomerular Filt Rate 78 ml/min (>60); GFR (African American) 95 ML/MIN (>60); Globulin 3.5 g/dL (1.3-3.2); Glucose 114 mg/dl (74-100); Lipase 231 U/L (23-300); Potassium 3.1 mmoL/L (3.5-5.1); Sodium 143 mmol/L (136-145); Total Protein,Serum 7.5 g/dl (6.3-8.2)
[2023-04-27 11:20] LABS: Lactic Acid 1.2 mmol/L (0.7-2.1)
[2023-04-27 11:21] LABS: Troponin I < 0.01 ng/ml (0.00-0.034)
--- NOTE | 2023-04-27 11:33 | PC.NURSE ---
Pt gone to RAD
[2023-04-27] MEDS: SODIUM CHLORIDE 0.9% 10ML SYR (RAD ONLY) 10 ML IV (11:46)
[2023-04-27] MEDS: 0.9 % SODIUM CHLORIDE 50 ML VIAL IV (11:46)
[2023-04-27] MEDS: IOPAMIDOL-370 (76%);100ML BOTTLE 100 ML IV (11:46)
--- NOTE | 2023-04-27 11:47 | PC.NURSE ---
PT back in room from RAD
[2023-04-27] MEDS: POTASSIUM CHLORIDE 20MEQ TAB 40 MEQ PO (11:49)
[2023-04-27 12:05] LABS: Appearance,Urine CLEAR (Clear); Bilirubin,Urine Negative (Negative); Blood, Urine TRACE-I (Negative); Color,Urine YELLOW (Yellow); Glucose,Urine (UA) Negative (Negative); Ketones,Urine Negative (Negative); Leukocyte Esterase,Urine Negative (Negative); Microscopic, Urine URINE MICROSCOPIC (MICROSCOPIC); Nitrate,Urine Negative (Negative); Protein,Urine Negative (Negative); Urobilinogen,Urine 0.2 EU/dl (0.2)
--- NOTE | 2023-04-27 12:11 | PC.NURSE ---
ON PHONE WITH BRADLY
[2023-04-27 12:36] LABS: Bacteria,Urine Trace /lpf; RBC,Urine Occasional #/hpf (0-3); Squamous Epithelial Cell,Urine Occasional #/hpf (0-5)
[2023-04-27 12:52] LABS: INR 1.06 (0.9-1.1); Prothrombin Time 11.4 seconds (10.1-12.5)
--- NOTE | 2023-04-27 12:58 | PC.NURSE ---
HS aware of admission
--- NOTE | 2023-04-27 13:02 | PC.NURSE ---
Admissions notified of pt admit to room 200 for PE and colitis to . Acute
[2023-04-27] MEDS: ENOXAPARIN 100MG/ML SYRINGE 90 MG SQ (13:07)
[2023-04-27] MEDS: OXYCODONE 5MG IMMEDIATE RELEASE TABLET 5 MG PO (13:07)
--- NOTE | 2023-04-27 13:19 | PC.NURSE ---
report called to Aníbal Weiss RN
--- NOTE | 2023-04-27 13:36 | PC.NURSE ---
arrived to floor by w/c from ED
[2023-04-27 14:12] LABS: Troponin I < 0.01 ng/ml (0.00-0.034)
[2023-04-27] MEDS: PIPERACILLIN/TAZO 3.375 GM in 0.9 % SODIUM CHLORIDE 50 ML IV (16:30)
[2023-04-27] MEDS: 0.9 % SODIUM CHLORIDE 1000ML 1,000 ML 50 ML IV (16:31)
[2023-04-27] MEDS: OXYCODONE 7.5MG W/APAP 325MG TABLET 1 EACH PO (17:32)
--- NOTE | 2023-04-27 17:49 | PC.NURSE ---
Patient is alert and oriented x4 and VSS. Pt denies shortness of breath, lung sounds are slightly diminished bilaterally. C/O flank pain with movement and when attempting to deep breath, pain treated per MAR.
[2023-04-27 18:23] LABS: Troponin I < 0.01 ng/ml (0.00-0.034)
--- NOTE | 2023-04-27 18:31 | P.HP_ITS ---
History of Present Illness *Admission Date: 04/27/23 *Reason for visit:: SOB *History of present illness: Patient is a 63-year-old male without significant past medical history who presents to the hospital due to chest pains radiating to back. Patient mentions he has been having these episodes of chest pain for past few days, it has not been improving, he also has noticed chest pain with taking deep breath so he decided to come to the hospital. Patient otherwise denied associated fever chills diarrhea constipation dysuria. He denies any recent surgery or history of long travel. [facility] Disclaimer: The information contained in this section may have been updated after the patient was seen, as this information can be updated by other users. Medical History Ankylosing spondylitis Anxiety Complete tear of medial collateral ligament of knee Hypertension Immunocompromised state Surgical History History of tonsillectomy Status post labral repair of shoulder Family History Mother H/O heart artery stent Social History (Updated 04/27/23 @ 14:53 by Ronaldo Sargent RN) Smoking Status: Former smoker alcohol intake: never current occupational status: employed Travel in the last 8 weeks: None Review of Systems Review of Systems Review of systems (narrative): as per [facility] Meds Home Medications and Allergies Home Medications Medication Instructions Recorded Confirmed Type adalimumab 40 mg/0.8 mL 40 mg SQ WEEKLY 04/03/23 04/27/23 History subcutaneous syringe kit (Humira) amlodipine 5 mg tablet 5 mg PO DAILY 04/03/23 04/27/23 History meclizine 25 mg tablet 12.5 mg PO DAILY PRN allergies 04/03/23 04/27/23 History melatonin 10 mg disintegrating 10 mg PO HS 04/03/23 04/27/23 History tablet quetiapine 100 mg tablet (Seroquel) 100 mg PO HS 04/03/23 04/27/23 History multivitamin 1 tab PO DAILY 04/27/23 04/27/23 History New Prescriptions to Start Prescriptions: Allergies Allergy/AdvReac Type Severity Reaction Status Date / Time No Known Allergies Allergy Verified 04/03/23 10:44 Exam Data for Last 24 hours Vital signs and Labs for Last 24 Hours: Temp Pulse Resp BP Pulse Ox O2 Del Method 98.2 F 92 H 18 123/86 97 Room Air 04/27/23 15:25 04/27/23 15:25 04/27/23 15:25 04/27/23 15:25 04/27/23 15:25 04/27/23 17:00 Laboratory Results - last 24 hr 04/27/23 10:33: WBC 9.8, RBC 4.54 L, Hgb 14.5, Hct 45.0, MCV 99.2 H, MCH 31.9 H, MCHC 32.2, RDW 13.1, Plt Count 422, MPV 7.8, Neut % (Auto) 49.2, Lymph % (Auto) 38.1, [place] % (Auto) 8.3, Eos % (Auto) 3.6, Baso % (Auto) 0.9, Neut # (Auto) 4.8, Lymph # (Auto) 3.7, [place] # (Auto) 0.8, Eos # (Auto) 0.4, Baso # (Auto) 0.1, PT 11.4, INR 1.06, APTT 32.0 H, Sodium 143, Potassium 3.1 L, Chloride 106, Carbon Dioxide 30, Anion Gap 10.1, BUN 8 L, Creatinine 1.00, Estimated Creat Clear 108, Estimated GFR 78, Est GFR ( Amer) 95, Glucose 114 H, Calcium 8.8, Total Bilirubin 0.9, AST 27, ALT 23, Alkaline Phosphatase 111, Troponin I < 0.01, Total Protein 7.5, Albumin 4.0, Globulin 3.5 H, Albumin/Globulin Ratio 1.1, Lipase 231 04/27/23 11:06: Lactate 1.2 04/27/23 11:57: Urine Color Yellow, Urine Appearance Clear, Urine pH 6.0, Ur Specific [place] 1.010, Urine Protein Negative, Urine Glucose (UA) Negative, Urine Ketones Negative, Urine Blood Trace-i, Urine Nitrate Negative, Urine Bilirubin Negative, Urine Urobilinogen 0.2, Ur Leukocyte Esterase Negative, Urine RBC Occasional, Urine WBC None, Ur Squamous Epith Cells Occasional, Urine Bacteria Trace 04/27/23 13:30: Troponin I < 0.01 04/27/23 16:35: Troponin I < 0.01 I & O for Last 24 hours: Intake & Output 04/24/23 04/25/23 04/26/23 04/27/23 23:59 23:59 23:59 23:59 Intake Total 710 / 710 Output Total 0 / 0 Balance 710 / 710 Weight 88.621 kg Constitutional Constitutional: no acute distress *Routine HEENT Exam Head: Present normocephalic Eye: Present EOMI and PERRL ENT: Present mucous membranes moist *Routine Neck Exam Neck: Present supple; Absent lymphadenopathy *Routine Respiratory Exam Respiratory: Present CTA bilaterally *Routine Cardiovascular Exam Cardiovascular: Present RRR *Routine Abdominal Exam Abdominal: Present soft and normoactive bowel sounds; Absent tenderness *Routine Rectal Exam Rectal:: deferred *Routine Genitalia Exam Genitalia:: deferred *Routine Extremities Exam Extremities: Absent cyanosis, clubbing or edema *Routine Skin Exam Skin: Present warm; Absent rash *Routine Neurological Exam Neurological: Present alert and oriented X3 Assessment and Plan *Assessment and plan (1) Abdominal pain: Status: Acute Category: Medical Code(s): R10.9 - Unspecified abdominal pain (2) Colitis: Status: Acute Category: Medical Code(s): K52.9 - Noninfective gastroenteritis and colitis, unspecified (3) Hypertension: Status: Chronic Qualifiers: Hypertension type: primary hypertension Qualified Code(s): I10 - Essential (primary) hypertension Category: Medical Code(s): I10 - Essential (primary) hypertension (4) Chest pain: Status: Acute Category: Medical Code(s): R07.9 - Chest pain, unspecified (5) Hypokalemia: Status: Acute Category: Medical Code(s): E87.6 - Hypokalemia (6) Bilateral pulmonary embolism: Status: Acute Category: Medical Code(s): I26.99 - Other pulmonary embolism without acute cor pulmonale Plan Patient is a 63-year-old male wit past medical history of HTN, ankylosing spondylitis, who presents to the hospital due to chest pains radiating to back. Patient mentions he has been having these episodes of chest pain for past few days, it has not been improving, he also has noticed chest pain with taking deep breath so he decided to come to the hospital. Patient otherwise denied associated fever chills diarrhea constipation dysuria. He denies any recent surgery or history of long travel. Assessment and plan Pleuritic chest pain secondary to PE Started on Lovenox therapeutic dose, will switch to p.o. Eliquis likely tomorrow, follow-up with oncology/hematology as patient CTA chest performed in ED-was negative for right heart Pain control colitis, likely bacterial start on Zosyn check stool panel Hypokalemia Monitor and replace Hypertension Continue home amlodipine DVT prophylaxis-on Lovenox
[2023-04-27] MEDS: QUETIAPINE 100MG TABLET 100 MG PO (21:17)
[2023-04-27] MEDS: MELATONIN 10 EACH PO (21:17)
[2023-04-28] VITALS: BP 108/60; PULSE 77; RESP 16; TEMP 36.4; O2SAT 96
[2023-04-28] MEDS: PIPERACILLIN/TAZO 3.375 GM in 0.9 % SODIUM CHLORIDE 50 ML IV ×2 (00:13→08:22)
[2023-04-28] MEDS: ENOXAPARIN 100MG/ML SYRINGE 90 MG SQ (00:13)
[2023-04-28 04:00] VITALS: BP 110/72; PULSE 69; RESP 16; TEMP 36.9; O2SAT 95; BMI 26.5
--- NOTE | 2023-04-28 04:24 | PC.NURSE ---
VITAL SIGNS STABLE/AFEBRILE. A/O X 4. NO C/O CHEST PAIN THIS SHIFT SO FAR. REPORTS SOME SOA WITH EXERTION. NO COUGH NOTED. CRACKLES IN BILAT LUNG BASES ,RIGHT MORE COARSE THAN LEFT BUT LEFT LUNG SOUNDS MORE DIMINISHED. FAMILY MEMBERS X 2 AT BEDSIDE.
[2023-04-28 05:12] LABS: POC Glucose,Bedside 93 (70-110)
[2023-04-28 07:39] VITALS: BP 129/71; PULSE 63; RESP 17; TEMP 36.9; O2SAT 93
[2023-04-28 07:48] LABS: Basophils % 0.7 % (0.1-2.0); Eosinophils # 0.5 K/mm3 (0.0-0.4); Eosinophils % 8.2 % (0.1-12.0); Hematocrit 37.6 % (42.0-52.0); Lymphocytes # 2.9 K/mm3 (0.7-4.5); Lymphocytes % 49.1 % (10-50); Mean Corpuscular HGB Conc 33.3 g/dL (31.8-35.4); Mean Corpuscular Volume 96.2 fl (80-94); Mean Platelet Volume 7.8 fl (7.4-10.4); Monocytes # 0.5 K/mm3 (0.1-1.0); Monocytes % 9.1 % (1.7-9.3); Neutrophils % 32.9 % (37.0-80.0); Platelet Count 357 K/mm3 (142-424); Red Blood Count 3.91 M/mm3 (4.60-6.20); Red Cell Distribution Width 13.3 % (11.5-17.5)
[2023-04-28 07:58] LABS: Hemoglobin 12.6 g/dL (14.1-18.0)
[2023-04-28 07:59] LABS: Blood Urea Nitrogen 9 mg/dl (9-20); Calcium 8.3 mg/dl (8.4-10.2); Carbon Dioxide 27 mmol/L (22.0-30.0); Chloride 110 mmol/L (98-107); Creatinine Clearance Estimated 101 mL/min (50-200); Estimated Glomerular Filt Rate 70 ml/min (>60); GFR (African American) 85 ML/MIN (>60); Glucose 95 mg/dl (74-100); Sodium 139 mmol/L (136-145)
[2023-04-28 08:00] VITALS: O2SAT 93
[2023-04-28] MEDS: OXYCODONE 7.5MG W/APAP 325MG TABLET 1 EACH PO (08:18)
[2023-04-28] MEDS: AMLODIPINE 5MG TABLET 5 MG PO (08:20)
--- NOTE | 2023-04-28 10:16 | P.DS_ITS ---
General Admission date:: 04/27/23 Discharge date: 04/28/23 HPI HPI HPI: Patient is a 63-year-old male without significant past medical history who presents to the hospital due to chest pains radiating to back. Patient mentions he has been having these episodes of chest pain for past few days, it has not been improving, he also has noticed chest pain with taking deep breath so he decided to come to the hospital. Patient otherwise denied associated fever chills diarrhea constipation dysuria. He denies any recent surgery or history of long travel. Hospital Course Hospital Course Hospital Course: Patient was seen and evaluated at the bedside on the day of discharge. Patient wishes to be discharged. All patient questions were answered and patient was given time to ask questions. Patient was discharged in stable condition. Patient understands that she can return to ER in case of any sudden changes in health. Total time spent on DC - 38 mins Patient is a 63-year-old male wit past medical history of HTN, ankylosing spondylitis, who presents to the hospital due to chest pains radiating to back. Patient mentions he has been having these episodes of chest pain for past few days, it has not been improving, he also has noticed chest pain with taking deep breath so he decided to come to the hospital. Patient otherwise denied associated fever chills diarrhea constipation dysuria. He denies any recent surgery or history of long travel. Assessment and plan Pleuritic chest pain secondary to PE - started on eliquis, f/u as outpatient follow-up with oncology/hematology as patient CTA chest performed in ED-was negative for right heart Pain control colitis, likely bacterial dc on Amox - clav Hypokalemia Monitor and replace Hypertension Continue home amlodipine DVT prophylaxis-on Lovenox Exam Data for Last 24 hours Vital signs and Labs for Last 24 Hours: Temp Pulse Resp BP Pulse Ox O2 Del Method 98.4 F 63 17 129/71 93 L Room Air 04/28/23 07:39 04/28/23 07:39 04/28/23 07:39 04/28/23 07:39 04/28/23 08:00 04/28/23 09:00 Laboratory Results - last 24 hr 04/27/23 10:33: WBC 9.8, RBC 4.54 L, Hgb 14.5, Hct 45.0, MCV 99.2 H, MCH 31.9 H, MCHC 32.2, RDW 13.1, Plt Count 422, MPV 7.8, Neut % (Auto) 49.2, Lymph % (Auto) 38.1, [place]kinson % (Auto) 8.3, Eos % (Auto) 3.6, Baso % (Auto) 0.9, Neut # (Auto) 4.8, Lymph # (Auto) 3.7, Atkinson # (Auto) 0.8, Eos # (Auto) 0.4, Baso # (Auto) 0.1, PT 11.4, INR 1.06, APTT 32.0 H, Sodium 143, Potassium 3.1 L, Chloride 106, Carbon Dioxide 30, Anion Gap 10.1, BUN 8 L, Creatinine 1.00, Estimated Creat Clear 108, Estimated GFR 78, Est GFR ( Amer) 95, Glucose 114 H, Calcium 8.8, Total Bilirubin 0.9, AST 27, ALT 23, Alkaline Phosphatase 111, Troponin I < 0.01, Total Protein 7.5, Albumin 4.0, Globulin 3.5 H, Albumin/Globulin Ratio 1.1, Lipase 231 04/27/23 11:06: Lactate 1.2 04/27/23 11:57: Urine Color Yellow, Urine Appearance Clear, Urine pH 6.0, Ur Specific [place] 1.010, Urine Protein Negative, Urine Glucose (UA) Negative, Urine Ketones Negative, Urine Blood Trace-i, Urine Nitrate Negative, Urine Bilirubin Negative, Urine Urobilinogen 0.2, Ur Leukocyte Esterase Negative, Urine RBC Occasional, Urine WBC None, Ur Squamous Epith Cells Occasional, Urine Bacteria Trace 04/27/23 13:30: Troponin I < 0.01 04/27/23 16:35: Troponin I < 0.01 04/28/23 05:02: POC Glucose 93 04/28/23 07:20: WBC 6.0 D, RBC 3.91 L, Hgb 12.6 L D, Hct 37.6 L, MCV 96.2 H, MCH 32.0 H, MCHC 33.3, RDW 13.3, Plt Count 357, MPV 7.8, Neut % (Auto) 32.9 L, Lymph % (Auto) 49.1, Atkinson % (Auto) 9.1, Eos % (Auto) 8.2, Baso % (Auto) 0.7, Neut # (Auto) 2.0, Lymph # (Auto) 2.9, Atkinson # (Auto) 0.5, Eos # (Auto) 0.5 H, Baso # (Auto) 0.0, Sodium 139, Potassium 4.0 D, Chloride 110 H, Carbon Dioxide 27, Anion Gap 6.0, BUN 9, Creatinine 1.10, Estimated Creat Clear 101, Estimated GFR 70, Est GFR ( Amer) 85, Glucose 95, Calcium 8.3 L I & O for Last 24 hours: Intake & Output 04/25/23 04/26/23 04/27/23 04/28/23 23:59 23:59 23:59 23:59 Intake Total 710 / 1688 1508 / 1508 Output Total 0 / 0 0 / 0 Balance 710 / 1688 1508 / 1508 Weight 88.621 kg 90.764 kg Constitutional Constitutional: no acute distress *Routine HEENT Exam Head: Present normocephalic Eye: Present EOMI and PERRL ENT: Present mucous membranes moist *Routine Neck Exam Neck: Present supple; Absent lymphadenopathy *Routine Respiratory Exam Respiratory: Present CTA bilaterally *Routine Cardiovascular Exam Cardiovascular: Present RRR *Routine Abdominal Exam Abdominal: Present soft and normoactive bowel sounds; Absent tenderness *Routine Extremities Exam Extremities: Absent cyanosis, clubbing or edema *Routine Skin Exam Skin: Present warm; Absent rash *Routine Neurological Exam Neurological: Present alert and oriented X3 Results Data Completed and Pending Labs on day of discharge: Labs from last 24 hours 04/28/23 04/28/23 04/27/23 07:20 05:02 16:35 WBC 6.0 D RBC 3.91 L Hgb 12.6 L D Hct 37.6 L MCV 96.2 H MCH 32.0 H MCHC 33.3 RDW 13.3 Plt Count 357 MPV 7.8 Neut % (Auto) 32.9 L Lymph % (Auto) 49.1 Atkinson % (Auto) 9.1 Eos % (Auto) 8.2 Baso % (Auto) 0.7 Neut # (Auto) 2.0 Lymph # (Auto) 2.9 Atkinson # (Auto) 0.5 Eos # (Auto) 0.5 H Baso # (Auto) 0.0 PT INR APTT Sodium 139 Potassium 4.0 D Chloride 110 H Carbon Dioxide 27 Anion Gap 6.0 BUN 9 Creatinine 1.10 Estimated Creat Clear 101 Estimated GFR 70 Est GFR ( Amer) 85 Glucose 95 POC Glucose 93 Lactate Calcium 8.3 L Total Bilirubin AST ALT Alkaline Phosphatase Troponin I < 0.01 Total Protein Albumin Globulin Albumin/Globulin Ratio Lipase Urine Color Urine Appearance Urine pH Ur Specific [place] Urine Protein Urine Glucose (UA) Urine Ketones Urine Blood Urine Nitrate Urine Bilirubin Urine Urobilinogen Ur Leukocyte Esterase Urine RBC Urine WBC Ur Squamous Epith Cells Urine Bacteria 04/27/23 04/27/23 04/27/23 13:30 11:57 11:06 WBC RBC Hgb Hct MCV MCH MCHC RDW Plt Count MPV Neut % (Auto) Lymph % (Auto) Atkinson % (Auto) Eos % (Auto) Baso % (Auto) Neut # (Auto) Lymph # (Auto) Atkinson # (Auto) Eos # (Auto) Baso # (Auto) PT INR APTT Sodium Potassium Chloride Carbon Dioxide Anion Gap BUN Creatinine Estimated Creat Clear Estimated GFR Est GFR ( Amer) Glucose POC Glucose Lactate 1.2 Calcium Total Bilirubin AST ALT Alkaline Phosphatase Troponin I < 0.01 Total Protein Albumin Globulin Albumin/Globulin Ratio Lipase Urine Color Yellow Urine Appearance Clear Urine pH 6.0 Ur Specific [place] 1.010 Urine Protein Negative Urine Glucose (UA) Negative Urine Ketones Negative Urine Blood Trace-i Urine Nitrate Negative Urine Bilirubin Negative Urine Urobilinogen 0.2 Ur Leukocyte Esterase Negative Urine RBC Occasional Urine WBC None Ur Squamous Epith Cells Occasional Urine Bacteria Trace 04/27/23 10:33 WBC 9.8 RBC 4.54 L Hgb 14.5 Hct 45.0 MCV 99.2 H MCH 31.9 H MCHC 32.2 RDW 13.1 Plt Count 422 MPV 7.8 Neut % (Auto) 49.2 Lymph % (Auto) 38.1 Atkinson % (Auto) 8.3 Eos % (Auto) 3.6 Baso % (Auto) 0.9 Neut # (Auto) 4.8 Lymph # (Auto) 3.7 Atkinson # (Auto) 0.8 Eos # (Auto) 0.4 Baso # (Auto) 0.1 PT 11.4 INR 1.06 APTT 32.0 H Sodium 143 Potassium 3.1 L Chloride 106 Carbon Dioxide 30 Anion Gap 10.1 BUN 8 L Creatinine 1.00 Estimated Creat Clear 108 Estimated GFR 78 Est GFR ( Amer) 95 Glucose 114 H POC Glucose Lactate Calcium 8.8 Total Bilirubin 0.9 AST 27 ALT 23 Alkaline Phosphatase 111 Troponin I < 0.01 Total Protein 7.5 Albumin 4.0 Globulin 3.5 H Albumin/Globulin Ratio 1.1 Lipase 231 Urine Color Urine Appearance Urine pH Ur Specific [place] Urine Protein Urine Glucose (UA) Urine Ketones Urine Blood Urine Nitrate Urine Bilirubin Urine Urobilinogen Ur Leukocyte Esterase Urine RBC Urine WBC Ur Squamous Epith Cells Urine Bacteria DS: Diagnosis Discharge Diagnosis (1) Abdominal pain: Status: Acute Code(s): R10.9 - Unspecified abdominal pain (2) Colitis: Status: Acute Code(s): K52.9 - Noninfective gastroenteritis and colitis, unspecified (3) Hypertension: Status: Chronic Code(s): I10 - Essential (primary) hypertension Qualifiers: Hypertension type: primary hypertension Qualified Code(s): I10 - Essen tial (primary) hypertension (4) Chest pain: Status: Acute Code(s): R07.9 - Chest pain, unspecified (5) Hypokalemia: Status: Acute Code(s): E87.6 - Hypokalemia (6) Bilateral pulmonary embolism: Status: Acute Code(s): I26.99 - Other pulmonary embolism without acute cor pulmonale Meds Home Medications and Allergies Home Medications Medication Instructions Recorded Confirmed Type adalimumab 40 mg/0.8 mL 40 mg SQ WEEKLY 04/03/23 04/27/23 History subcutaneous syringe kit (Humira) amlodipine 5 mg tablet 5 mg PO DAILY 04/03/23 04/27/23 History meclizine 25 mg tablet 12.5 mg PO DAILY PRN allergies 04/03/23 04/27/23 History melatonin 10 mg disintegrating 10 mg PO HS 04/03/23 04/27/23 History tablet quetiapine 100 mg tablet (Seroquel) 100 mg PO HS 04/03/23 04/27/23 History multivitamin 1 tab PO DAILY 04/27/23 04/27/23 History amoxicillin 875 mg-potassium 1 tab PO BID 7 days #14 tabs 04/28/23 Rx clavulanate 125 mg tablet apixaban 5 mg (74 tabs) tablets in 5 mg PO BID #74 tabs 04/28/23 Rx a dose pack (Eliquis DVT-PE Treat 30D Start) hydrocodone 5 mg-acetaminophen 325 1 tab PO Q8H PRN pain #6 tabs 04/28/23 Rx mg tablet New Prescriptions to Start Prescriptions: amoxicillin-pot clavulanate Paula Thomason apixaban [Eliquis DVT-PE Treat 30D Start] Paula Thomason hydrocodone-acetaminophen Paula Thomason Allergies Allergy/AdvReac Type Severity Reaction Status Date / Time No Known Allergies Allergy Verified 04/03/23 10:44 Discharge Plan Disposition Patient Disposition: Home, Self-Care Condition: Good Follow up Plan Follow up with: Lyle Paulino MD [Staff Physician] - 2 weeks Provider,MD John [Primary Care Provider] - See instructions Prescriptions/Medication Reconciliation: New amoxicillin-pot clavulanate 875-125 mg tablet 1 tab PO BID 7 Days Qty: 14 0RF Eliquis DVT-PE Treat 30D Start 5 mg (74 tabs) tablets,dose pack 5 mg PO BID Qty: 74 0RF hydrocodone-acetaminophen 5-325 mg tablet 1 tab PO Q8H PRN (Reason: pain) Qty: 6 0RF Continued amlodipine 5 mg Tablet 5 mg PO DAILY quetiapine [Seroquel] 100 mg Tablet 100 mg PO HS meclizine 25 mg Tablet 12.5 mg PO DAILY PRN (Reason: allergies) Humira 40 mg/0.8 mL Syringe Kit 40 mg SQ WEEKLY Hold Instructions: Pending follow-up with spring repairer helper hand and resolution of pneumonia. melatonin 10 mg Tablet,Disintegrating 10 mg PO HS multivitamin Tablet 1 tab PO DAILY Problem Reconciliation Problems Reviewed?: Yes Patient Discharge Instructions ACTIVITY: Ambulate as tolerated DIET: continue same diet Patient Instructions: DI for Pulmonary Embolism, DI for Colitis Providers Primary Care Provider: Provider,Referral Admit Provider: Paula Thomason Attending Provider: Paula Thomason
--- NOTE | 2023-04-29 14:30 | CARE MANAGER ---
Called and spoke with patient regarding recent discharge. Patient stated that he is doing well, has seen his PCP today and plans to wait on seeing Dr. José per her recommendation. Has started new medicaiton.
== END 2023-04-28 10:38 | disposition home or self-care (01) ==
LOC: ER 12:56 → 2ND 13:10
PROVIDERS: Admitting Provider Internal Medicine; Emergency Provider Emergency Medicine; Visit Provider Internal Medicine
DX: R10.9 Unspecified abdominal pain (principal); I26.99 Other pulmonary embolism without acute cor pulmonale; I10 Essential (primary) hypertension; E87.6 Hypokalemia; Z79.899 Other long term (current) drug therapy; K52.9 Noninfective gastroenteritis and colitis, unspecified; M45.9 Ankylosing spondylitis of unspecified sites in spine
CPT/HCPCS: 36415; 71275; 74174; 80048; 80053; 81001; 82962; 83605; 83690; 84484; 85025; 85610; 85730; 93005; 99285; G0378; J0131; J2405; J2543; Q9967

== ENCOUNTER 2023-05-02 16:12 | Outpatient (CLI) | payer BC, SELFPAY ==
--- NOTE | 2023-05-02 16:18 | XR_ITS ---
PROCEDURE INFORMATION: Exam: XR Chest Exam date and time: 05/02/2023 4:49 PM Age: 53 years old Clinical indication: Condition or disease; Other: Pneumonia; Additional info: Pneumonia. Former smoker for 20 yrs TECHNIQUE: Imaging protocol: Radiologic exam of the chest. Views: 2 views. COMPARISON: 1. CT ANGIO CHEST PE PROTOCOL 04/27/2023 11:32 AM 2. CR XR CHEST PORTABLE 04/03/2023 11:49 AM FINDINGS: Lungs: Minimal left basilar opacity. No pulmonary edema or focal consolidation. Pleural spaces: Small left pleural effusion. Heart/Mediastinum: Cardiomediastinal silhouette is normal. Bones/joints: No acute abnormality. IMPRESSION: Small left pleural effusion with minimal left basilar opacity, favor atelectasis. No focal consolidation or pulmonary edema.
== END 2023-05-02 23:59 ==
LOC: RAD 16:14
PROVIDERS: PCP Family Medicine; Visit Provider Family Medicine
DX: J18.9 Pneumonia, unspecified organism (principal)
CPT/HCPCS: 71046

== ENCOUNTER 2023-09-10 07:54 | Outpatient (CLI) | payer BC, SELFPAY ==
[2023-09-10 08:40] VITALS: PULSE 71; PULSE 74
[2023-09-10] MEDS: ALBUTEROL 0.083% 2.5 MG/3 ML NEB IH (08:40)
== END 2023-09-10 23:59 | disposition home or self-care (01) ==
LOC: RT 07:55
PROVIDERS: PCP Family Medicine; Visit Provider Internal Medicine Pulmonary Disease
DX: R06.09 Other forms of dyspnea (principal)
CPT/HCPCS: 94060; 94618; 94640; 94726; 94729; J7613

== ENCOUNTER 2024-08-10 06:42 | Outpatient (CLI) | payer BC, SELFPAY ==
--- OUTSIDE RECORDS SUMMARY | 2024-08-10 06:45 | XMS_ITS | Continuity of Care Document ---
Author Organization [facility] Address [address] [facility] [address], [address] [place] [address] Care Team Providers Care Pipe Fitter Name Role Phone GAYLE RDZ Referring Provider [phone] Assessment Encounter Date Assessment Date Assessment LastModified by Organization Details LastModified Time 06/15/2024 06/15/2024 Mr. Daniel presents for a wellness check up. Last year he had significant medical issues beginning with right lower lobe pneumonia in early March, which is presumed by his signs and symptoms to have been pneumococcal in nature but the hospital did not check respiratory pathogens. A month later he was found to have bilateral pulmonary emboli and was admitted. He was subsequently started on DOAC, Eliquis. We did further evaluation and there was no evidence for deep venous thrombosis in either leg. 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 He does have a follow up in the near future with his welding machine operator electron beam. He is due a LDCT lung cancer screen in July so we will order that as well. It may be safe for him to discontinue the eliquis but we will defer that to the welding machine operator electron beam. Previously if someone had pulmonary emboli they were advised to stay on anti-coagulation for life but the thinking on that has changed some since his followed an acute infection. 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 He has also resumed the Humira. He has Ankylosing Spondylitis and is followed by rheumatology. He has been pleased with his results from the Humira that he has been taking for 3 years. Unfortunately that medication has imparted some immunocompetency which is likely why he developed such an overwhelming pulmonary infection. He is staying up to date with vaccines. He has Dupuytren's in the palms of the hands but has no contractures. We discussed stretching and massaging again. We note that his blood pressure is borderline but is typically controlled. The brief vertigo episode he had a couple of years ago has occasionally recurred and he does take meclizine daily. He keeps chronic tinnitus in the left ear and the hearing is decreased so it is a good idea for a hearing evaluation to consider an aid in the affected ear. Ten year calculated CV risk is 5.72%. Depression and anxiety disorders are well controlled on his present medications. He could not tolerate the statin with muscle spasm and with the elevation of triglycerides especially he plans to work harder on diet. His job involves long hours of driving and sitting now so we encourage him to add some cardio exercise. We discussed the importance of limiting alcohol to no more than 2 drinks daily for best health. He has been tobacco free for over 10 years. Labs are reviewed and are all basically normal other than elevated lipids. He had a negative Cologuard test last year so is due again in 2026. He should consider at least one screening colonoscopy at some time in his 50's. His Medications are reconciled. We continue to encourage healthy lifestyle. Not available 06/16/2024 07:28:25 Plan of Treatment Reminders Order Date Submit Date Provider Last Modified By Organization Details Last Modified Time Details Appointments None recorded. Lab None recorded. Referral None recorded. Procedures None recorded. Surgeries None recorded. Imaging LDCT, chest, for lung cancer screening - due after 08/11/242024 025 shahida n5 [facility] ([facility] [address] , [place], [address], 10:56:27 Medication Orders None recorded. Patient TargetsNo targets recorded. Patient Instructions Encounter Date Encounter Id Patient Instructions Last Modified By Organization Details Last Modified Time 06/15/[id number] Dupuytren's Disease: Care Instructions Not available 06/15/2024 09:47:23 taking direct or al anticoagulants safely: care instructions Not available 06/15/2024 09:47:23 dash diet: care instructions alka Not available 06/15/2024 09:47:23 Reason for Referral None Reported. Problems Name Problem SNOMED Code Status Onset Date Resolution Date Notes Provider Name and Address Organization Details Recorded Time Anxiety state 041612344 Active Ernestine Arora MD [address] [address], [place], [address] , [facility] 6 11:05:20 Chronic lymphadenitis 56183065 Active Not Available [facility] 3 03:01:06 Recurrent major depressive episodes, in full remission Active Ernestine Arora MD [address] [address], [place], [address] , [facility] 5 17:22:23 Chronic tonsillitis 89765312 Active Not Available [facility] 3 03:01:06 Depressive disorder 18022652 Active Not Available [facility] 3 03:01:06 Problem Notes None recorded. Procedures Surgical History Date Name Laterality Status Provider Name and Address Organization Details Recorded Time 1 Tonsillectomy completed Ernestine Arora MD [address], [address], [facility] 12/02/2015 15:26:58 0 Knee Surgery completed Not Available [facility] 011 04:58:32 9 Other completed Not Available [facility] 1 04:58:32 Imaging Results None recorded. Procedure Notes None recorded. Medical Equipment None Reported. Allergies Allergen ID Allergen Name Allergen Category Reaction Reaction Severity Criticality Documentation Date Start Date Code Code System Note Provider Name and Address Organization Details Recorded Time 59237 Product containin g 3-hydroxy -3-methyl glutaryl- coenzyme A reductase inhibitor (product) medicatio n myalgias (muscle pain) severe Not available 01/27/2018 28701 009 SNOMED Ernestine Arora MD [address] [facility] [address], [place], [address], [facility] 8 19:37:23 Medications Name Sig Start Date Stop Date Status Note LastModified by Organization Details LastModified Time cyclobenza jessa 10 mg tablet TAKE 1 TABLET BY MOUTH 3 TIMES A DAY NEEDED 01/11 completed Not Available Not Available Not Available amoxicilli n 500 mg capsule TAKE 2 CAPSULES BY MOUTH TWICE A DAY FOR 10 DAYS 04/23 completed Not Available Not Available Not Available promethazi ne-DM 6.25 mg-15 mg/5 mL oral syrup 11/27 completed Not Available Not Available Not Available prednisone 10 mg tablet 05/06 completed Not Available Not Available Not Available atorvastat in 20 mg tablet TAKE 1 TABLET BY MOUTH EVERY DAY 01/11 completed Not Available Not Available Not Available azithromyc in 250 mg tablet active Not Available Not Available Not Available pravastati n 40 mg tablet TAKE 1 TABLET BY MOUTH EVERY DAY 08/23 completed Not Available Not Available Not Available hydrocodon e 5 mg-acetami nophen 325 mg tablet TAKE 1 TABLET BY MOUTH EVERY 8 HOURS NEEDED FOR PAIN 05/13 completed Not Available Not Available Not Available meloxicam 15 mg tablet TAKE 1 TABLET BY MOUTH EVERY DAY NEEDED 04/11 completed Not Available Not Available Not Available prednisone 20 mg tablet 08/09 completed Not Available Not Available Not Available meclizine 12.5 mg tablet TAKE 1 TABLET BY MOUTH THREE TIMES A DAY NEEDED active Not Available Not Available No t Available amlodipine 2.5 mg tablet TAKE 1 TABLET BY MOUTH EVERY DAY 04/11 completed Not Available Not Available Not Available amlodipine 5 mg tablet TAKE 1 TABLET BY MOUTH EVERY DAY active Not Available Not Available No t Available tramadol 50 mg tablet 08/19 completed Not Available Not Available Not Available alprazolam 0.5 mg tablet TAKE 1 TABLET BY MOUTH EVERY EVENING NEEDED 04/23 completed Not Available Not Available Not Available hydrocodon e 10 mg-acetami nophen 500 mg tablet active Not Available Not Available No t Available doxycyclin e monohydrat e 100 mg capsule TAKE 1 CAPSULE TWICE A DAY BY MOUTH WITH MEAL FOR 10 DAYS. 05/13 completed Not Available Not Available Not Available cephalexin 500 mg capsule active Not Available Not Available Not Available diclofenac sodium 75 mg tablet,del ayed release TAKE 1 TABLET BY MOUTH 2 TIMES A DAY 01/11 completed Not Available Not Available Not Available hydrocodon e 5 mg-acetami nophen 500 mg tablet active Not Available Not Available No t Available dexamethas one sodium phosphate 4 mg/mL injection solution Take 1 mL by injectio n route. 01/11 completed Not Available Not Available Not Available methylpred nisolone 4 mg tablets in a dose pack TAKE 6 TABLETS ON DAY 1 DIRECTED ON PACKAGE AND DECREASE BY 1 TAB EACH DAY FOR A TOTAL OF 6 DAYS 05/13 completed Not Available Not Available Not Available cefdinir 300 mg capsule TAKE ONE CAPSULE BY MOUTH TWICE A DAY FOR 5 DAYS. 05/13 completed Not Available Not Available Not Available naproxen 500 mg tablet 09/25 completed Not Available Not Available Not Available amoxicilli n 875 mg-potassi um clavulanat e 125 mg tablet TAKE 1 TABLET BY MOUTH TWICE A DAY FOR 7 DAYS 05/13 completed Not Available Not Available Not Available amoxicilli n 500 mg-potassi um clavulanat e 125 mg tablet 07/19 completed Not Available Not Available Not Available azithromyc in 500 mg tablet TAKE 1 TABLET BY MOUTH ONCE ONLY A SINGLE DOSE ON 04/05/2305/13 completed Not Available Not Available Not Available Alcohol Prep Pads USE DIRECTED active Not Available Not Available No t Available Attachment Set NEW PATIENT GUIDE active Not Available Not Available No t Available sildenafil (pulmonary hypertensi on) 20 mg tablet TAKE 1-2 TABS BY MOUTH DAILY NEEDED 2022 active Not Available Not Available Not Avai lable chlorhexid ine gluconate 0.12 % mouthwash SWISH AND SPIT WITH 15ML TWICE A DAY DIRECTED active Not Available Not Available No t Available Keflex active Not Available Not Availa ble Not Available Vitamin D3 2000 units daily recommen ded 04/11 completed Not Available Not Available Not Available multivitam in 1 po daily active Not Available Not Available No t Available quetiapine 50 mg tablet TAKE 1 TABLET BY MOUTH TWICE A DAY NEEDED active Not Available Not Available No t Available 12 Hour Decongesta nt ER 120 mg tablet,ext ended release TAKE 1 TABLET BY MOUTH EVERY 12 HOURS FOR 10 DAYS 11/27 completed Not Available Not Available Not Available melatonin 5 mg tablet Take 1 tablet every day by oral route at bedtime. active Not Available Not Available No t Available Seroquel XR 50 mg tablet,ext ended release TAKE 1 TABLET EVERY EVENING 12/01 completed Not Available Not Available Not Available Eliquis 5 mg tablet TAKE 1 TABLET BY MOUTH TWICE A DAY active Not Available Not Available No t Available [employer] y Container USE WITH ADALIMUM AB active Not Available Not Available No t Available Flucelvax 0668-2502 (PF) 45 mcg (15 mcg x 3)/0.5 mL IM syringe active Not Available Not Available N ot Available Eliquis DVT-PE Treatment 30-Day Starter 5 mg (74 tablets) in dose pack TAKE 1 TABLET BY MOUTH TWICE A DAY active Not Available Not Available No t Available Humira(CF) Pen 40 mg/0.4 mL subcutaneo us kit INJECT 1 PEN SUBCUTAN EOUSLY EVERY 2 WEEKS IN THE ABDOMEN OR THIGH (ROTATE SITES) [M45.9] active Not Available Not Available No t Available COVID-19 test specimen collection TEST DIRECTED TODAY 04/11 completed Not Available Not Available Not Available Afluria Qd (36 mos up)(PF)60 mcg (15 mcg x4)/0.5 mL IM syringe ADM 0.5ML IM UTD 02/10 completed Not Available Not Available Not Available adalimumab -adaz 40 mg/0.4 mL subcutaneo us pen injector INJECT 1 PEN (0.4ML) UNDER SKIN EVERY TWO WEEKS active Humira Not Available Not Available No t Available Vitals Date Recorded Body height Body mass index (BMI) Body weight Heart rate Oxygen saturation Oxygen saturation in Arterial blood by Pulse oximetry Body temperature Systolic blood pressure Diastolic blood pressure Provider Name and Address Organization Details Last Updated DateTime 5 185.42 cm 27.4 kg/m2 70545.2 1 g 95 /min 98 % 98 % 97.3 [degF] 122 mm[Hg] 86 mm[Hg] [facility] 5 09:23:02 Social History Question Answer Notes LastModified by Organizat ion Details LastModified Time Tobacco Smoking Status Former Smoker quit 02-23-11 Not Available [facility] 12/22/2019 03:11:19 Do You Have An Advance Directive? No [id number] Information not available 12/22/2019 Is Blood Transfusion Acceptable In An Emergency? Yes [id number] Information not available 12/22/2019 What Is Your Level Of Caffeine Consumption? Moderate Information not available 06/15/2024 How Much Tobacco Do You Chew? None [id number] Information not available 12/22/2019 Diabetes No [email or web address] 1 15 Information not available 01/09/2011 What Type Of Diet Are You Following? REGULAR [id number] Information not available 12/22/2019 Which Illicit Or Recreational Drugs Have You Used? None [id number] Information not available 12/22/2019 Education 12 DBA_PATCH_ 1 15 Information not available 01/09/2011 What Is The Highest Grade Or Level Of School You Have Completed Or The Highest Degree You Have Received? DT15582-3 Information not available 04/11/2021 Who Is Your Employer? [employer] Information not available 04/11/2021 Family History Of Heart Disease? No 15 Information not available 01/09/2011 Live Alone Or With Others? With Others 15 Information not available 01/09/2011 Marital Status Information not available 01/09/2011 What Was The Date Of Your Most Recent Tobacco Screening? 06/15/2024 Information not available 06/15/2024 How Many Children Do You Have? 5 [id number] Information not available 12/22/2019 What Is Your Relationship Status? Information not available 04/11/2021 At What Age Did You Start Smoking Tobacco? 16 [id number] Information not available 12/22/2019 How Much Tobacco Do You Smoke? No [id number] Information not available 12/22/2019 General Stress Level Medium 15 Information not available 01/09/2011 How Many Years Have You Smoked Tobacco? 25 [id number] Information not available 12/22/2019 Sex: Male Functional Status Question Answer Note LastModified by Organizat ion Details LastModified Time What is your level of alcohol consumption? Moderate 3-4 beer per day [id number] Information not available 12/22/2019 Do you or have you ever used smokeless tobacco? Never used smokeless tobacco [id number] Information not available 12/22/2019 Are you currently employed? Yes [id number] Information not available 12/22/2019 Are you able to care for yourself? 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 Never used electronic cigarettes [id number] Information not available 12/22/2019 What is your exercise level? Moderate [id number] Information not available 12/22/2019 Mental Status None recorded. Family History Relationship Description Onset Age of this Age Resolved Age Notes LastModified by Organization Details LastModified Time Mother Hypertensive disorder Not available 2014 16:05:14 Mother Coronary arterioscler osis 69 Not available 2015 15:49:26 Father Diabetes mellitus Not available 2014 16:05:14 Father Coronary arterioscler osis Not available 2017 17:26:50 Brother Asthma Not available 10/25/2014 16:05:14 Brother Coronary arterioscler osis 52 stents Not available 2015 15:48:35 Medical History Condition Response Coronary Artery Disease N Gout N Kidney Stones N Blood Diseases N Hyperthyroidism N Hypothyroidism N COPD N Depression N Developmental or Behavioral Disorders N Eczema, Hives or other skin conditions N Anxiety Disorder Y Muscle, Joint, or Bone Problems N Vision or Eye Problems N Arthritis N Serious Illness or Injuries N Congenital Anomalies N Cancer N Stroke N Bladder or Kidney Problems N Hospital Admission other than N High Cholesterol Y Liver Disease N Fibromyalgia N Kidney Disease N Heart Problems N Ear or Hearing Problems N ADD or ADHD N Thyroid Problems N Skin Problems N Anemia N Constipation N Diabetes N Bedwetting N Seizures/Epilepsy N Tuberculosis N Diverticulitis N Asthma N Allergies N GERD/Reflux N Heart Disease N Pulmonary Embolism N Hypertension N Chicken Pox N Osteoporosis N Immunizations Vaccine Type Date Status Note Provider Nam e and Address Organization Details Recorded Time Influenza, split virus, quadrivalent, preservative 7 completed Not Available [facility] 03/14/2019 02:12:14 Influenza, split virus, quadrivalent, PF 8 completed Not Available [facility] 03/14/2019 02:12:13 Hep A, adult 8 completed Not Available [facility] 03/14/2019 02:12:07 Influenza, recombinant, quadrivalent, PF 9 completed Not Available [facility] 03/14/2019 02:12:11 Hep A, adult 9 completed Not Available [facility] 03/14/2019 02:12:07 Influenza, split virus, quadrivalent, preservative 4 completed [facility] 01/28/2014 16:12:02 Influenza, recombinant, quadrivalent, PF 1 completed Not Available [facility] 12/15/2020 14:42:49 zoster recombinant 2 completed Not Available [facility] 04/28/2021 12:01:12 zoster recombinant 3 completed Ernestine Arora MD [address] [facility], [facility] [address], [place], [address], [facility] 04/24/2022 21:26:54 Influenza, split virus, quadrivalent, PF 3 completed Not Available [facility] 11/23/2022 13:45:34 pneumococcal polysaccharide PPV23 4 completed Ernestine Arora MD [address] [facility], [facility] [address], [place], [address], [facility] 05/16/2023 18:09:35 Influenza, split virus, quadrivalent, preservative 6 completed Not Available [facility] 03/28/2019 02:12:33 Tdap 4 completed [facility] 12/02/2015 15:43:14 Tdap 4 completed Ernestine Arora MD [address] [facility], [facility] [address], [place], [address], [facility] 12/07/2023 23:34:50 Influenza, split virus, trivalent, PF 4 completed Ernestine Arora MD [address] [address], [place], [address], [facility] 12/07/2023 23:34:50 Influenza, split virus, quadrivalent, preservative 0 completed Ernestine Arora MD [address], [address], [facility] 02/11/2020 22:53:40 COVID-19 vaccine, vector-nr, rS-Ad26, PF, 0.5 mL 1 completed [facility] 04/11/2021 09:06:44 Influenza, split virus, quadrivalent, preservative 2 completed Ernestine Arora MD [address] [address], [place], [address], [facility] 12/24/2021 22:44:08 Influenza, split virus, trivalent, preservative 2 completed Not Available [facility] 03/14/2019 02:12:11 Past Encounters Encounter ID Performer Location Encounter Start Date Encounter Closed Date Diagnosis/Indication Diagnosis SNOMED-CT Code Diagnosis ICD10 Code Diagnosis Note [id number] Ernestine Arora MD [facility] [address] [address] 06/15/2024 09:09:52 06/16/2024 08:46:06 Adult health examination 792824219 Z00.01 History of pulmonary embolus 308844666 Z86.711 Abnormal b lood pressure 12495027 Z01.31 Hyperlipidemia 34851011 E78.5 Ankylosing spondylitis 1363731 M45.7 Immunosupp ressive therapy 52771937 D84.9 Ex-smoker 5855489 Z87.89 1 Dupuytren' s disease of palm 085895421 M72.0 Long-term current use of anticoagulant 365741199 Z79.01 Screening for cardiovascular system disease 065833771 Z13.6 Overweight in adulthood with body mass index of 25 or more but less than 30 444474087 Z68.27 Review of medication 182 959557 Z79.899 Health Concerns Section Related Observation LastModified by Organization Detai ls LastModified Time None Recorded Concern Status LastModified by Organization Details LastModified Time None Recorded Payers Encounter Date Sequence Insurance Name Policy Number Policy Baumann Covered Member ID Baumann Member ID Guarantor Name 06/15/2024 1 [place] [id number] Sherrie Daniel [id number] Sherrie Daniel
--- OUTSIDE RECORDS SUMMARY | 2024-08-10 06:45 | XMS_ITS | Clinical Summary ---
Author Organization [facility] Address [address] [place] [address] Care Team Providers Care [employer] Craft[employer] Instructor Name Role Phone Ernestine Arora MD Primary Care Provider [phone] Allergies Active Allergy Reactions Criticality Noted Date Comments Statins Other - please docum ent in the comment field Low 10/08/2023 Medications adalimumab (Humira) 40 MG/0.8ML Prefilled Syringe Kit 0.8 mL (40 mg). 4 Active Humira, 2 Pen, 40 MG/0.4ML Pen-injector Kit INJECT 1 PEN SUBCUTANEOUSLY EVERY 2 WEEKS IN THE ABDOMEN OR THIGH (ROTATE SITES) [M45.9] 4 Active Alcohol Swabs ([facility] Prep) 70 % pads USE DIRECTED 4 Active amLODIPine (Norvasc) 5 MG tablet Take 1 tablet (5 mg) by mouth 1 (one) time each day. Active apixaban (Eliquis Starter Pack) 5 MG tablet Take 1 tablet (5 mg) by mouth 2 (two) times a day. 4 Active meclizine (Antivert) 25 MG tablet Take 0.5 tablets (12.5 mg) by mouth 1 (one) time each day. 4 Active Melatonin [address] under the tongue. Active multivitamin (Theragran-M) tablet Take 1 tablet by mouth 1 (one) time each day. Active QUEtiapine (SEROquel) 50 MG tablet Take 1 tablet (50 mg) by mouth 2 (two) times a day if needed. Active sildenafil (Revatio) 20 MG tablet Take 1 tablet (20 mg) by mouth 3 times a day. Active Family History Medical History Relation Name Comments Deep vein thrombosis Brother Skin cancer Mother Relation Name Status Comments Brother Mother Social History Tobacco Use Types Packs/Day Years Used Date Smoking Tobacco: Former Cigarettes Smokeless Tobacco: Never PHQ-2 Answer Date Recorded Patient Health Questionnaire-2 Score 0 01/01/2024 Sex and Gender Information Value Date Recorded Sex Assigned at Not on file Legal Sex Male 9:05 AM EDT Gender Identity Not on file Sexual Orientation Not on file Last Filed Vital Signs Vital Sign Reading Time Taken Comments Blood Pressure 129/89 01/01/2024 10:27 AM EST Pulse 81 01/01/2024 10:22 AM EST Temperature 36.5 C (97.7 F) 01/01/2024 10:22 AM EST Respiratory Rate 16 01/01/2024 10:22 AM EST Oxygen Saturation 97% 01/01/2024 10:22 AM EST Inhaled Oxygen Concentration - - Weight - - Height - - Body Mass Index - - Plan of Treatment Health Maintenance Due Date Last Done Comments [facility]-HIV Screening 1971 [facility]-Hepatitis C Screening 1971 [facility]-/Child/Adol SDOH Screenings 1971 [facility]- SDOH Screenings 1989 [facility]-Adult SDOH Screenings 1989 [facility]-Hepatitis B Vaccines (1 of 3 - 19+ 3-dose series) 1990 CT Colonography 02/05/2016 Colonoscopy 02/05/2016 FIT-DNA 02/05/2016 FIT 02/05/2016 FOBT 02/05/2016 Sigmoidoscopy 02/05/2016 [facility]-Colorectal Cancer Screening 02/05/2016 [id number] Vaccine (2 - Abimbola risk series) 11/03/2020 10/06/2020 [facility]-Pneumococcal Vaccine: 50+ Years (2 of 2 - PCV) 05/13/2024 05/14/2023 [facility]-Depression Screening 12/31/2024 01/01/2024 [facility]-DTaP,Tdap,and Td Vaccines (2 - Td or Tdap) 12/05/2033 12/06/2023 [facility]-Hepatitis A Vaccines Aged Out 01/27/2019, 11/25 No longer eligible based on patient's age to complete this topic [facility]-Zoster Vaccines Completed 04/23/2022, [facility]-Influenza Vaccine Completed 12/06/2023 , 11/23/2022, 12/22/2021, Additional history exists HPV Vaccines Aged Out No longer eligi ble based on patient's age to complete this topic [facility]-HIB Vaccines Aged Out No longer e ligible based on patient's age to complete this topic [facility]-IPV Vaccines Aged Out No longer e ligible based on patient's age to complete this topic [facility]-Rotavirus Vaccines Aged Out No lo nger eligible based on patient's age to complete this topic Insurance Care Teams 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
--- OUTSIDE RECORDS SUMMARY | 2024-08-10 06:46 | XMS_ITS | Data Portability ---
Author Organization [facility], [place] Address [address] [place] [id number] Care Team Providers Care Lift Supervisor Name Role Phone GAYLE RDZ Referring Provider Assessment Encounter Date Assessment Date Assessment LastModified by Organization Details LastModified Time 04/11/2023 04/11/2023 Mr. Daniel recently became very ill with a febrile illness and a right lower lobe pneumonia. He is immunocompromised from taking Humira for the Ankylosing Spondylitis. He was hospitalized overnight and last week and is completing the Cefdinir and has also completed Zithromax. He still has some cough and congestion and fatigue. He has been off the Humira since this occurred and will need to remain off until he has completely improved. We recommend a course of Doxycycline since he still has some symptoms. We will follow up for his wellness in April and will need the pneumonia vaccine. He should be able to return to work 04/22. [email or web address] Not available 04/12/2023 13:58:13 04/29/2023 04/29/2023 Mr. Daniel chaudhary s had an eventful past month with the development of significant right lower lobe pneumonia with high fevers that led to a brief hospitalization. He is immunocompromised from the Humira he takes for Ankylosing Spondylitis. He has been off that medication during treatment for the pneumonia. The fatigue was great so he took short term disability to recover and recently returned to work. However late last week while at work he suffered sudden severe chest pain with inability to take a deep breath and we advised he go to ER. He was found to have bilateral pulmonary emboli and was hospitalized overnight and started anti-coagulation therapy. He is here to follow up. This warrants a major work up to find the cause for the blood clots. We must rule out an underlying autoimmune clotting disorder. This is his first such event. We must also rule out an occult DVT from his recent sedentary rest with the pneumonia. He is feeling better and thinks he can work and we advised that he is safe to do so on the Eliquis. He was also diagnosed with a colitis showing some thickening of the sigmoid area and really does not have GI symptoms now but we note he is due colon cancer screening with a Cologuard. He has a past history of smoking and is due the LDCT lung cancer screen but that should be postponed a few months since he just had the pneumonia and the CT angiogram of the chest. It is reasonable to follow up with a dumpster driver and perhaps operations assistant pending the results of the tests we are ordering today. The length of time he needs to stay on anti-coagulation will be dependent on the tests we are awaiting. He is due a follow up and a wellness visit. alka Not available 04/30/2023 07:38:19 05/14/2023 05/14/2023 Mr. Daniel presents for a wellness check up. He has had an eventful six weeks with a history of right lower lobe pneumonia in early March, which is presumed by his signs and symptoms to have been pneumococcal in nature but the hospital did not check respiratory pathogens. He was treated for a community acquired pneumonia and did return to work but developed severe chest pain and shortness of breath one month later. He was advised to report again to emergency department and was found to have bilateral pulmonary emboli and was admitted. There was some evidence of a mild colitis but we suspect that was due to the recent antibiotics. He was subsequently started on DOAC, Eliquis. We did further evaluation and there was no evidence for deep venous thrombosis in either leg. 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 He is due a LDCT lung cancer screen but we recommend postponing that since he recently had a CTA of the lungs. At this point we also recommend a pulmonology evaluation as a precaution and to help decide how long he should remain on the Eliquis. We feel that waiting until July for the lung CT is appropriate unless the dumpster driver feels he needs a follow up diagnostic CT. We also obtained a battery of labs to rule out an underlying coagulopathy and that was a negative work up fortunately. 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 He has also resumed the Humira. He has Ankylosing Spondylitis and is followed by rheumatology. He has been pleased with his results from the Humira that he has been taking for 3 years. Unfortunately that medication has imparted some immunocompetency which is likely why he developed such an overwhelming pulmonary infection. We recommend now that he receive a Pneumonia vaccine. He is developing very early Dupuytren's in the palm of the hands but has no contractures. We discussed stretching and massaging again. We note that his blood pressure is borderline but is typically controlled. The brief vertigo episode he had a couple of years ago has occasionally recurred and he does take meclizine daily. He keeps chronic tinnitus in the left ear. Ten year calculated CV risk is 6.40%. Depression and anxiety disorders are well controlled [...] lipids. He had a negative Cologuard test 3 years ago so we will recommend a repeat cologuard this year. He should consider at least one screening colonoscopy at some time in his 50's. His Medications are reconciled. We continue to encourage healthy lifestyle. Given these recent medical issues we are recommending a 6 month follow up this year or sooner as needed. alka Not available 05/16/2023 18:04:42 12/06/2023 12/06/2023 Mr. Daniel follows up on blood pressure. He has had several medical issues earlier in the year with a significant pneumonia followed by pulmonary emboli. He has been maintained on anticoagulation since mid April. He is followed now by pulmonology who has advised to stay on anticoagulation since he spends over eight hours a day driving. He has also been referred to hematology by his tobacco curer as a precaution. We did evaluate him previously for possible coagulation disorders and the results were negative. We have provided him with copies of the results to take to the operations assistant. His medications are reviewed. He is potentially immunocompromised with the Humira. We recommend updating immunizations with the annual flu vaccine and tetanus, diphtheria, and pertussis today. A calculated ten year cardiovascular risk is 6.93%. We continue to encourage healthy lifestyle changes. Not available 12/08/2023 00:13:56 06/15/2024 06/15/2024 Mr. Daniel presents for a [...] up in the near future with his dumpster driver. He is due a LDCT lung cancer screen in July so we will order that as well. It may be safe for him to discontinue the eliquis but we will defer that to the dumpster driver. Previously if someone had pulmonary emboli they were advised to stay on anti-coagulation for life but the thinking on that has changed some since his followed an acute infection. 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 We continue to encourage healthy lifestyle. alka Not available 06/16/2024 07:28:25 Plan of Treatment Reminders Order Date Submit Date Provider Last Modified By Organization Details Last Modified Time Details Appointments None recorded. Lab noninvasive colorectal cancer DNA + occult blood screening, QL, stool 2023 024 [employer] [facility] [email or web address] Not available 4 09:26:02 noninvasive colorectal cancer DNA + occult blood screening, QL, stool 2023 024 [facility], [address], [place], [address], 4 12:09:25 SARS CoV 2 IgG Ab, QL IA, serum or plasma 2023 024 [facility], [address], [place], [address], 4 12:19:39 SARS CoV 2 IgM Ab, QL, IA, DBS 2023 024 [employer] [facility], [address], [place], [address], 4 12:19:39 antiphospho lipid antibody panel, serum 2023 024 [facility], [address], [place], [address], 4 17:09:55 factor V mutation, blood or tissue 2023 024 SHIL[facility], [address], [place], [address], 4 17:09:56 PT/PTT, plasma 2023 024 [facility], [address], [place], [address], 4 17:09:54 lupus anticoagula nt, plasma 2023 024 spring [email or web address] [facility], [address], [place], [address], 4 12:19:39 protein C + protein S, functional panel, plasma 2023 024 [facility], [address], [place], [address], 4 17:09:[address] referral 2023 024 [place] [address] Yoon Alberto MD, [address], [address], [place], [address], 4 10:17:06 Procedures None recorded. Surgeries None recorded. Imaging LDCT, chest, for lung cancer screening - due after 08/11/242024 0[address] [place] [address] ([facility]), [address], [place], [address], 5 10:56:27 LDCT, chest, for lung cancer screening 2023 024 [facility] (Scheduling), [address] [place], [address], 4 10:12:54 US, duplex, venous, lower extremity, complete - BOTH LEFT AND RIGHT LEGS [address] [place] [address] (Scheduling), [address] [place], [address], 4 12:02:29 Medication Orders Eliquis 5 mg tablet 2023 024 [id number], [address] [place], [address], 4 17:35:23 doxycycline monohydrate 100 mg capsule [email or web address]/[facility]armacy [id number], [address] [place], [address], 4 11:33:10 methylpredn isolone 4 mg tablets in a dose pack [address]/Pharmacy #[id number], [address] [place], [address], 4 11:33:15 Patient TargetsNo targets recorded. Patient Instructions Encounter Date Encounter Id Patient Instructions Last Modified By Organization Details Last Modified Time 05/14/2023 [id number] Dupuytren's Disease: Care Instructions Not available 05/14/2023 12:49:44 taking direct or al anticoagulants safely: care instructions Not available 05/16/2023 18:09:51 dash diet: care instructions Not available 05/14/2023 12:49:43 06/15/2024 [id number] Dupuytren's Disease: Care Instructions Not available 06/15/2024 09:47:23 taking direct or al anticoagulants safely: care instructions Not available 06/15/2024 09:47:23 dash diet: care instructions Not available 06/15/2024 09:47:23 Reason for Referral Addictions Counselor Assistant Referral for H istory of pulmonary embolus Referring Physician: Ernestine Arora, Family Medicine, Encounter Date: 05/14/2023 Results Created Date Observation Date Name Description Value Unit Range Abnormal Flag Note LastModifiedBy Organization Detail LastModifiedTime 04/25/19 24 04/26/2023 LIPID PANEL , STAND MARCELINO cholesterol, total 191 mg/dL <200 normal Not Available [facility] [place] [facility] [address] [place], [address], 04/26/2023 11:01:50 04/25/19 24 04/26/2023 LIPID PANEL , STAND MARCELINO HDL cholesterol 36 mg/dL > or = 40 low Not Available [facility] [place] [facility] [address] [facility], [place], [address], 04/26/2023 11:01:50 04/25/19 24 04/26/2023 LIPID PANEL , STAND MARCELINO triglyceride s 257 mg/dL <150 high If a non-f astin g speci men was colle cted, consi sreedhar repea t trigl yceri de testi ng on a fasti ng speci men if clini jj indic ated. Red gale et al. J. of Clin. Lipid ol. 2015; 9:129 -169. Not Available [facility] [place] [facility] [address] [place], [address], 04/26/2023 11:01:50 04/25/19 24 04/26/2023 LIPID PANEL , STAND MARCELINO LDL-choleste rol 118 mg/dL _(capri c) high Refer ence range : <100 Michael able range <100 mg/dL for prima ry preve ntion ; <70 mg/dL for patie nts with CHD or diabe tic patie nts with > or = 2 CHD risk facto rs. LDL-C is now calcu lated using the Ally n-Hop kins calcu latio n, which is a valid ated novel metho d provi cecily cuenca r accur acy than the Fried emily equat ion in the estim ation of LDL-C . Ally n SS et al. DEVORAH. 2013; 310(1 9): 2061- 2068 (http ://ed rellati on.Ellen mondragonCoupa Software. com/f aq/FA Q164) Not Available [facility] [place] [facility] [address], [place], [address], 04/26/2023 11:01:50 04/25/19 24 04/26/2023 LIPID PANEL , STAND MARCELINO chol/HDLC ratio 5.3 (calc ) <5.0 high Not Available [facility] [place] [facility] [address], [place], [address], 04/26/2023 11:01:50 04/25/19 24 04/26/2023 LIPID PANEL , STAND MARCELINO non HDL cholesterol 155 mg/dL _(capri c) <130 high For patie nts with diabe joleen plus 1 major ASCVD risk facto r, treat ing to a non-H DL-C goal of <100 mg/dL (LDL- C of <70 mg/dL ) is consi dered a thera peelinai c optio n. Not Available [facility] [place] [facility] [address], [place], [address], 04/26/2023 11:01:50 04/25/19 24 04/26/2023 COMPR EHENS GERSON METAB OLIC PANEL glucose 86 mg/dL 65-139 normal Non-f astin g refer ence inter shae Not Available [facility] [place] [facility] [address], [place], [address], 04/26/2023 11:01:50 04/25/19 24 04/26/2023 COMPR EHENS GERSON METAB OLIC PANEL urea nitrogen (BUN) 11 mg/dL 7-25 normal Not Available [facility] [place] [facility] [address], [place], [address], 04/26/2023 11:01:50 04/25/19 24 04/26/2023 COMPR EHENS GERSON METAB OLIC PANEL creatinine 1.04 mg/dL 0.70-1 .30 normal Not Available [email or web address] [address] [place], [address], 04/26/2023 11:01:50 04/25/19 24 04/26/2023 COMPR EHENS GERSON METAB OLIC PANEL eGFR 86 mL/mi n/1.7 3m2 > or = 60 normal Not Available [facility] [address] [place], [address], 04/26/2023 11:01:50 04/25/19 24 04/26/2023 COMPR EHENS GERSON METAB OLIC PANEL BUN/creatini ne ratio SEE NOTE: (calc ) 6-22 Not Repor mickey: BUN and Creat inine are withi n refer ence range . Not Available [employer] [facility] [address] [place], [address], 04/26/2023 11:01:50 04/25/19 24 04/26/2023 COMPR EHENS GERSON METAB OLIC PANEL sodium 141 mmol/ L 135-14 6 normal Not Available [facility] [address] [place], [address], 04/26/2023 11:01:50 04/25/19 24 04/26/2023 COMPR EHENS GERSON METAB OLIC PANEL potassium 4.0 mmol/ L 3.5-5. 3 normal Not Available [facility] [address] [place], [address], 04/26/2023 11:01:50 04/25/19 24 04/26/2023 COMPR EHENS GERSON METAB OLIC PANEL chloride 107 mmol/ L 98-110 normal Not Available [facility] [address] [place], [address], 04/26/2023 11:01:50 04/25/19 24 04/26/2023 COMPR EHENS GERSON METAB OLIC PANEL carbon dioxide 27 mmol/ L 20-32 normal Not Available [facility] [place] [facility] [address] [facility] [place], [address], 04/26/2023 11:01:50 04/25/19 24 04/26/2023 COMPR EHENS GERSON METAB OLIC PANEL calcium 9.2 mg/dL 8.6-10 .3 normal Not Available [facility] [address] [place], [address], 04/26/2023 11:01:50 04/25/19 24 04/26/2023 COMPR EHENS GERSON METAB OLIC PANEL protein, total 6.8 g/dL 6.1-8. 1 normal Not Available [facility] [address] [place], [address], 04/26/2023 11:01:50 04/25/19 24 04/26/2023 COMPR EHENS GERSON METAB OLIC PANEL albumin 3.7 g/dL 3.6-5. 1 normal Not Available [facility] [address] [place], [address], 04/26/2023 11:01:50 04/25/19 24 04/26/2023 COMPR EHENS GERSON METAB OLIC PANEL globulin 3.1 g/dL_ (calc ) 1.9-3. 7 normal Not Available [facility] [address] [place], [address], 04/26/2023 11:01:50 04/25/19 24 04/26/2023 COMPR EHENS GERSON METAB OLIC PANEL albumin/glob ulin ratio 1.2 (calc ) 1.0-2. 5 normal Not Available [facility] [address] [place], [address], 04/26/2023 11:01:50 04/25/19 24 04/26/2023 COMPR EHENS GERSON METAB OLIC PANEL bilirubin, total 1.0 mg/dL 0.2-1. 2 normal Not Available [employer] [facility] [address] [place], [address], 04/26/2023 11:01:50 04/25/19 24 04/26/2023 COMPR EHENS GERSON METAB OLIC PANEL alkaline phosphatase 91 U/L 35-144 normal Not Available [facility] [employer] [facility] [address] [place], [address], 04/26/2023 11:01:50 04/25/19 24 04/26/2023 COMPR EHENS GERSON METAB OLIC PANEL AST 15 U/L 10-35 normal Not Available [facility] [address] [place], [address], 04/26/2023 11:01:50 04/25/19 24 04/26/2023 COMPR EHENS GERSON METAB OLIC PANEL ALT 13 U/L 9-46 normal Not Available [employer] [facility] [address] [place], [address], 04/26/2023 11:01:50 04/25/19 24 04/26/2023 TSH TSH 2.34 mIU/L 0.40-4 .50 normal Not Available [employer] [facility] [place], [address], 04/26/2023 11:01:51 04/25/19 24 04/26/2023 CBC (INCL UDES DIFF/ PLT) white blood cell count 7.3 thous and/u L 3.8-10 .8 normal Not Available [employer] [facility] [address] [place], [address], 04/26/2023 11:01:52 04/25/19 24 04/26/2023 CBC (INCL UDES DIFF/ PLT) red blood cell count 4.45 faheem on/uL 4.20-5 .80 normal Not Available [facility] [place] [facility] [address] [place], [address], 04/26/2023 11:01:52 04/25/19 24 04/26/2023 CBC (INCL UDES DIFF/ PLT) hemoglobin 13.8 g/dL 13.2-1 7.1 normal Not Available [facility] [place] [facility] [address] [place], [address], 04/26/2023 11:01:52 04/25/19 24 04/26/2023 CBC (INCL UDES DIFF/ PLT) hematocrit 40.6 % 38.5-5 0.0 normal Not Available [facility] [place] [facility] [address] [place], [address], 04/26/2023 11:01:52 04/25/19 24 04/26/2023 CBC (INCL UDES DIFF/ PLT) MCV 91.2 fL 80.0-1 00.0 normal Not Available [facility] [place] [facility] [address] [place], [address], 04/26/2023 11:01:52 04/25/19 24 04/26/2023 CBC (INCL UDES DIFF/ PLT) MCH 31.0 pg 27.0-3 3.0 normal Not Available [facility] [place] [facility] [address] [place], [address], 04/26/2023 11:01:52 04/25/19 24 04/26/2023 CBC (INCL UDES DIFF/ PLT) MCHC 34.0 g/dL 32.0-3 6.0 normal Not Available [facility] [place] [facility] [address] [place], [address], 04/26/2023 11:01:52 04/25/19 24 04/26/2023 CBC (INCL UDES DIFF/ PLT) RDW 12.2 % 11.0-1 5.0 normal Not Available [facility] [place] [facility] [address], [place], [address], 04/26/2023 11:01:52 04/25/19 24 04/26/2023 CBC (INCL UDES DIFF/ PLT) platelet count 415 thous and/u L 140-40 0 high Not Available [facility] [address], [place], [address], 04/26/2023 11:01:52 04/25/19 24 04/26/2023 CBC (INCL UDES DIFF/ PLT) MPV 10.4 fL 7.5-12 .5 normal Not Available [facility] [address], [place], [address], 04/26/2023 11:01:52 04/25/19 24 04/26/2023 CBC (INCL UDES DIFF/ PLT) absolute neutrophils 3584 cells /uL 1500-7 800 normal Not Available [facility] [address], [place], [address], 04/26/2023 11:01:52 04/25/19 24 04/26/2023 CBC (INCL UDES DIFF/ PLT) absolute lymphocytes 2759 cells /uL 850-39 00 normal Not Available [facility] [address], [place], [address], 04/26/2023 11:01:52 04/25/19 24 04/26/2023 CBC (INCL UDES DIFF/ PLT) absolute monocytes 708 cells /uL 200-95 0 normal Not Available [facility] [place] [facility] [address], [place], [address], 04/26/2023 11:01:52 04/25/19 24 04/26/2023 CBC (INCL UDES DIFF/ PLT) absolute eosinophils 219 cells /uL 15-500 normal Not Available [facility] [address], [place], [address], 04/26/2023 11:01:52 04/25/19 24 04/26/2023 CBC (INCL UDES DIFF/ PLT) absolute basophils 29 cells /uL 0-200 normal Not Available [facility] [place] [facility] [address], [place], [address], 04/26/2023 11:01:52 04/25/19 24 04/26/2023 CBC (INCL UDES DIFF/ PLT) neutrophils 49.1 % normal Not Available [facility] [place] [facility] [address], [place], [address], 04/26/2023 11:01:52 04/25/19 24 04/26/2023 CBC (INCL UDES DIFF/ PLT) lymphocytes 37.8 % normal Not Available [facility] [place] [facility] [address], [place], [address], 04/26/2023 11:01:52 04/25/19 24 04/26/2023 CBC (INCL UDES DIFF/ PLT) monocytes 9.7 % normal Not Available [facility] [place] [facility] [address], [place], [address], 04/26/2023 11:01:52 04/25/19 24 04/26/2023 CBC (INCL UDES DIFF/ PLT) eosinophils 3.0 % normal Not Available [facility] [place] [facility] [address], [place], [address], 04/26/2023 11:01:52 04/25/19 24 04/26/2023 CBC (INCL UDES DIFF/ PLT) basophils 0.4 % normal Not Available [facility] [place] [facility] [address], [place], [address], 04/26/2023 11:01:52 04/25/19 24 04/26/2023 PSA, TOTAL PSA, total 0.32 NG/mL < or = 4.00 normal The total PSA value from this assay syste m is stand ardiz ed again st the WHO stand marcelino. The test resul t will be appro ximat dean 20% lower when rosalba red to the equim olar- stand ardiz ed total PSA (Vinson man Coult er). Rosalba rison of seria l PSA resul ts shoul d be inter prete d with this fact in mind. This test was perfo rmed using the Sieme ns chemi lumin escen t metho d. Value s obtai freddy from diffe rent assay metho ds canno t be used inter mccoy eably . PSA level s, regar dless of value , shoul d not be inter prete d as absol [place] evide nce of the prese nce or absen ce of disea se. Not Available [facility] [place] [facility] [address] [place], [address], 04/26/2023 11:01:52 04/29/19 24 05/06/2023 PROTH ROMBI N W/INR + PARTI AL THROM BOPLA STIN TIMES partial thromboplast in time, activated 36 sec 23-32 high This test has not been valid ated for monit oring unfra ction ated hepar in thera py. For testi ng that is valid ated for this type of thera py, kole e refer to the Hepar in Anti- Xa assay (test code 85650 ). For addit ional infor kole grajeda e refer to http: //[facility] patricia de la rosa.Que stDia gnost ics.c om/fa q/FAQ 159 (This link is being provi ded for infor faustino nal/e ducat ional purpo ses only. ) Not Available [facility] [place] [facility] [address] [facility], [place], [address], 05/06/2023 17:09:53 04/29/19 24 05/06/2023 PROTH ROMBI N W/INR + PARTI AL THROM BOPLA STIN TIMES INR 1.1 normal Refer ence Range 0.9-1 .1 Moder ate-i ntens ity Warfa rin Thera py 2.0-3 .0 Highe r-int ensit y Warfa rin Thera py 3.0-4 .0 Not Available [facility] [place] [facility] [address] [facility], [place], [address], 05/06/2023 17:09:53 04/29/19 24 05/06/2023 PROTH ROMBI N W/INR + PARTI AL THROM BOPLA STIN TIMES PT 11.0 sec 9.0-11 .5 normal Not Available [facility] [place] [facility] [address] [facility], [place], [address], 05/06/2023 17:09:53 04/29/19 24 05/06/2023 PROTE IN C AND S ACTIV ITY W/REF LUCÍA TO ANTIG EN protein C, activity 133 %_nor mal 70-180 Decre ased level s of prote in C activ ity may be found in hered itary defic iency , treat ment with oral antic oagul ants, liver disea se, D.I.C . and post surge ry. An eleva mickey prote in C activ ity is not clini jj signi fican t. Only defic ienci es are assoc iated with an incre ased throm botic risk. Howev er, anti- throm bin or oral anti- Xa medic ation s may cause false eleva tions . Not Available [facility] [place] [facility] [address] [facility], [place], [address], 05/06/2023 17:09:54 04/29/19 24 05/06/2023 PROTE IN C AND S ACTIV ITY W/REF LUCÍA TO ANTIG EN protein S, activity 152 %_nor mal 70-150 high Decre ased level s of Prote in S activ ity may be found in patie nts with hered itary defic iency , warfa rin thera py, vitam in k defic iency , liver disea se, DIC, or recen t throm bosis as well as after surge ry. In addit ion, it may be physi ologi c in pregn chuck. An eleva mickey Prote in S activ ity is not clini jj signi fican t. Only defic ienci es are assoc iated with an incre ased throm botic risk. Not Available [facility] [place] [facility] [address] [place], [address], 05/06/2023 17:09:54 04/29/19 24 05/06/2023 ANTIP HOSPH OLIPI D ANTIB JUAN PANEL comment SEE NOTE For furth er inqui carol regar ding speci fic clini capri probl ems or coagu latio n labor atory test issue s, pleas e call a [facility] Custo trina Suppo rt Repre senta tive, [phone] for refer ral to the Medic al [facility] latjennifer n. Not Available [facility] [place] [facility] [address] [place], [address], 05/06/2023 17:09:55 04/29/19 24 05/06/2023 ANTIP HOSPH OLIPI D ANTIB JUAN PANEL B2 glycoprotein I (IgG)Ab <2.0 U/mL Value Inter preta tion ----- ----- ----- ---- <20.0 Antib juan not detec mickey > or = 20.0 Antib juan detec mickey Not Available [facility] [place] [facility] [address] [place], [address], 05/06/2023 17:09:55 04/29/19 24 05/06/2023 ANTIP HOSPH OLIPI D ANTIB JUAN PANEL B2 glycoprotein I (IgA)Ab <2.0 U/mL Value Inter preta tion ----- ----- ----- ---- <20.0 Antib juan not detec mickey > or = 20.0 Antib juan detec mickey Not Available [facility] [place] [facility] [address] [place], [address], 05/06/2023 17:09:55 04/29/19 24 05/06/2023 ANTIP HOSPH OLIPI D ANTIB JUAN PANEL B2 glycoprotein I (IgM)Ab <2.0 U/mL Value Inter preta tion ----- ----- ----- ---- <20.0 Antib juan not detec mickey > or = 20.0 Antib juan detec mickey Not Available [facility] [place] [facility] [address] [place], [address], 05/06/2023 17:09:55 04/29/19 24 05/06/2023 ANTIP HOSPH OLIPI D ANTIB JUAN PANEL phosphatidyl serine/ prothrombin Ab (IgG) <9 U < or = 30 For addit ional samr kole grajeda e refer to http: //[facility].que stdia gnost ics.c om/fa q/FAQ 262 (This link is being provi ded for infor faustino nal/e ducat ional purpo ses only. ) Not Available [facility] [place] [facility] [address] [place], [address], 05/06/2023 17:09:55 04/29/19 24 05/06/2023 ANTIP HOSPH OLIPI D ANTIB JUAN PANEL phosphatidyl serine/ prothrombin Ab (IgM) <9 U < or = 30 For addit ional samr kole grajeda e refer to http: //[facility] catjennifer n.que stdia gnost ics.c om/fa q/FAQ 262 (This link is being provi ded for infor matio nal/e ducat ional purpo ses only. ) Not Available [facility] [place] [facility] [address] [place], [address], 05/06/2023 17:09:55 04/29/19 24 05/06/2023 ANTIP HOSPH OLIPI D ANTIB JUAN PANEL cardiolipin Ab (IgA) <2.0 apl-U /mL Not Available [facility] [place] [facility] [address] [place], [address], 05/06/2023 17:09:55 04/29/19 24 05/06/2023 ANTIP HOSPH OLIPI D ANTIB JUAN PANEL cardiolipin Ab (IgG) <2.0 gpl-U /mL Not Available [facility] [place] [facility] [address], [place], [address], 05/06/2023 17:09:55 04/29/19 24 05/06/2023 ANTIP HOSPH OLIPI D ANTIB JUAN PANEL cardiolipin Ab (IgM) <2.0 mpl-U /mL The antip hosph olipi d antib juan syndr ome (APS) is a clini capri-p athol ogic corre latio n that inclu alonzo a clini capri event (e.g. arter ial or venou s throm bosis , pregn chuck morbi dity) and persi stent posit gerson antip hosph olipi d antib odies (IgM, IgG Cardi olipi n or b2GPI antib odies great er than the 99th perce ntile ; or a lupus antic oagul ant). Inter natio nal conse nsus guide lines for APS sugge st waiti ng at least 12 weeks befor e retes ting to confi rm antib juan persi stenc e. The Syste mary Lupus Inter natio nal Colla borat ing Clini cs immun ologi capri class ifica tion crite jenna for syste mary lupus eryth emato bo (SLE) inclu de testi ng for isoty pe IgA, which has yet to be incor porat ed into APS crite jenna. Low level antip hosph olipi d antib odies may somet imes be detec mickey in the setti ng of infec tion, drug thera py or aging . For addit ional infor kole grajeda e refer to http: //victorina westbrookque stdia gnost ics.c om/fa q/FAQ 109 (This link is being provi ded for infor faustino nal/e ducat ional purpo ses only. ) Cardi olipi n Ab (IgA) Value Inter preta tion ----- ----- ----- ---- <20.0 Antib juan not detec mickey > or = 20.0 Antib juan detec mickey Cardi olipi n Ab (IgG) Value Inter preta tion ----- ----- ----- ---- <20.0 Antib juan not detec mickey > or = 20.0 Antib juan detec mickey Cardi olipi n Ab (IgM) Value Inter preta tion ----- ----- ----- ---- <20.0 Antib juan not detec mickey > or = 20.0 Antib juan detec mickey Not Available [facility] [place] [facility] [address] [place], [address], 05/06/2023 17:09:55 04/29/19 24 05/06/2023 SARS COV2, IGG NUCLE OCAP, IGM SPIKE , QL sars cov 2 Ab IgG NEGATI VE normal Refer ence range : Negat gerson These tests are inten ded for use as an aid in ident ifyin g indiv idual s with an adapt gerson immun e respo nse to SARS- CoV-2 , indic ating recen t or prior infec tion. Resul ts are for the detec tion of SARS- CoV-2 IgG and IgM antib odies . IgM antib odies to SARS- CoV-2 are gener ally detec table in blood sever al days after initi al infec tion, with IgG antib odies typic ally reach ing detec table level s a few days later . The durat ion of time antib odies are prese nt post- infec tion is not well elías cteri zed. At this time, it is unkno wn how long IgG and IgM antib odies persi st follo wing infec tion, or if the prese nce of antib odies confe rs prote ctive immun ity. Indiv idual s may have detec table virus prese nt for sever al weeks follo wing seroc onver dk. Negat gerson resul ts for antib odies do not precl ude acute SARS- CoV-2 infec tion. These tests shoul d not be used to diagn ose acute SARS- CoV-2 infec tion. If acute infec tion is suspe cted, direc t testi ng for SARS- CoV-2 is necmaureen macy. False posit gerson resul ts for the tests may occur due to cross -reac tivit y from pre-e xisti ng antib odies or other possi ble cause s. The sensi tivit y of the tests early after infec tion is unkno wn. IgM Resul t IgG Resul t Inter preta tion Negat gerson Negat gerson Antib odies not detec mickey. Does not precl ude acute SARS- CoV-2 infec tion. Negat gerson Posit gerson Sugge sts past expos ure to SARS- CoV-2 . Posit gerson Negat gerson Sugge sts recen t expos ure to SARS- CoV-2 . Posit gerson Posit gerson Sugge sts recen t expos ure to SARS- CoV-2 . Kole e myra w the Fact Sheet s avail able for healt h care provi ders and patie nts using the follo wing websi joleen: [facility]home /Covi d-19/ HCP/a ntibo dy/fa ct-sh eet2 [facility]home /Covi d-19/ Patie nts/a ntibo dy/fa ct-sh eet2 [facility]home /Covi d-19/ HCP/a ntibo dy/fa ct-sh eet6 [facility]home /Covi d-19/ Patie nts/a ntibo dy/fa ct-sh eet6 These tests have been autho rized by the FDA under an Emerg ency Use Autho rizat ion (EUA) for use by autho rized labor josri es. The FDA autho rized fact sheet s are avail able on the [facility] websi te: www.Q uestD iagno stics .com/ Covid 19. For addit ional infor faustino fischer e refer to http: //victorina de la rosa.kian stdia gnost ics.c om/fa q/FAQ 219 (This link is being provi ded for infor matio nal/ educa brooks l purpo ses only. ) Not Available [facility] [place] [facility] [address] [facility], [place], [address], 05/06/2023 17:09:55 04/29/19 24 05/06/2023 SARS COV2, IGG NUCLE OCAP, IGM SPIKE , QL sars cov 2 IgM NEGATI VE normal REFER ENCE RANGE : NEGAT GERSON These tests are inten ded for use as an aid in ident ifyin g indiv idual s with an adapt gerson immun e respo nse to SARS- CoV-2 , indic ating recen t or prior infec tion. Resul ts are for the detec tion of SARS- CoV-2 IgG and IgM antib odies . IgM antib odies to SARS- CoV-2 are gener ally detec table in blood sever al days after initi al infec tion, with IgG antib odies typic ally reach ing detec table level s a few days later . The durat ion of time antib odies are prese nt post- infec tion is not well elías cteri zed. At this time, it is unkno wn how long IgG and IgM antib odies persi st follo wing infec tion, or if the prese nce of antib odies confe rs prote ctive immun ity. Indiv idual s may have detec table virus prese nt for sever al weeks follo wing seroc onver dk. Negat gerson resul ts for antib odies do not precl ude acute SARS- CoV-2 infec tion. These tests shoul d not be used to diagn ose acute SARS- CoV-2 infec tion. If acute infec tion is suspe cted, direc t testi ng for SARS- CoV-2 is lorena cordoba. False posit gerson resul ts for the tests may occur due to cross -reac tivit y from pre-e xisti ng antib odies or other possi ble cause s. The sensi tivit y of the tests early after infec tion is unkno wn. IgM Resul t IgG Resul t Inter preta tion ===== ===== ===== ===== ===== ===== ===== === Negat gerson Negat gerson Antib odies not detec mickey. Does not precl ude acute SARS- CoV-2 infec tion. Negat gerson Posit gerson Sugge sts past expos ure to SARS- CoV-2 . Posit gerson Negat gerson Sugge sts recen t expos ure to SARS- CoV-2 . Posit gerson Posit gerson Sugge sts recen t expos ure to SARS- CoV-2 . Pleas e revie w the Fact Sheet s avail able for healt h care provi ders and patie nts using the [employer] websi joleen: [facility]home /Covi d-19/ HCP/a ntibo dy/ fact- sheet 2 [facility]home /Covi d-19/ Patie nts/ antib juan/f act-s heet2 [facility]home /Covi d-19/ HCP/a ntibo dy/ fact- sheet 6 [facility]home /Covi d-19/ Patie nts/ antib juan/f act-s heet6 These tests have been autho rized by the FDA under an Emerg ency Use Autho rizat ion (EUA) for use by autho rized labor atori es. The FDA autho rized fact sheet s are avail able on the [facility] websi te: www.Q uestD [employer] SystemsgnAppwoRx .[employer]/ Covid 19. For addit ional infor faustino n kole e refer to http: //victorina de la rosa.que stdia gnost ics.c om/fa q/FAQ 219 (This link is being provi ded for infor matio nal/ educa brooks l purpo ses only. ) Refer ence range : Negat gerson These tests are inten ded for use as an aid in ident ifyin g indiv idual s with an adapt gerson immun e respo nse to SARS- CoV-2 , indic ating recen t or prior infec tion. Resul ts are for the detec tion of SARS- CoV-2 IgG and IgM antib odies . IgM antib odies to SARS- CoV-2 are gener ally detec table in blood sever al days after initi al infec tion, with IgG antib odies typic ally reach ing detec table level s a few days later . The durat ion of time antib odies are prese nt post- infec tion is not well elías cteri zed. At this time, it is unkno wn how long IgG and IgM antib odies persi st follo wing infec tion, or if the prese nce of antib odies confe rs prote ctive immun ity. Indiv idual s may have detec table virus prese nt for sever al weeks follo wing seroc onver dk. Negat gerson resul ts for antib odies do not precl ude acute SARS- CoV-2 infec tion. These tests shoul d not be used to diagn ose acute SARS- CoV-2 infec tion. If acute infec tion is suspe cted, direc t testi ng for SARS- CoV-2 is neces beryl. False posit gerson resul ts for the tests may occur due to cross -reac tivit y from pre-e xisti ng antib odies or other possi ble cause s. The sensi tivit y of the tests early after infec tion is unkno wn. IgM Resul t IgG Resul t Inter preta tion Negat gerson Negat gerson Antib odies not detec mickey. Does not precl ude acute SARS- CoV-2 infec tion. Negat gerson Posit gerson Sugge sts past expos ure to SARS- CoV-2 . Posit gerson Negat gerson Sugge sts recen t expos ure to SARS- CoV-2 . Posit gerson Posit gerson Sugge sts recen t expos ure to SARS- CoV-2 . Kole e myra w the Fact Sheet s avail able for healt h care provi ders and patie nts using the follo wing websi joleen: [facility]home /Covi d-19/ HCP/a ntibo dy/fa ct-sh eet2 [facility]home /Covi d-19/ Patie nts/a ntibo dy/fa ct-sh eet2 [facility]home /Covi d-19/ HCP/a ntibo dy/fa ct-sh eet6 [facility]home /Covi d-19/ Patie nts/a ntibo dy/fa ct-sh eet6 These tests have been autho rized by the FDA under an Emerg ency Use Autho rizat ion (EUA) for use by autho rized labor atori es. The FDA autho rized fact sheet s are avail able on the [facility] websi te: www.Q uestD iagno stics .[employer]/ Covid 19. For addit ional infor faustino fischer e refer to http: //victorina mas stdia gnost ics.c om/fa q/FAQ 219 (This link is being provi ded for infor faustino solis/ educa brooks l purpo ses only. ) Not Available [facility] [place] [facility] [address] [place], [address], 05/06/2023 17:09:55 04/29/19 24 05/06/2023 FACTO R V (LEID EN) MUTAT ION KATHY SIS factor V (leiden) mutation NEGATI VE FACTO R V LEIDE N (R506 Q) VARIA NT NOT DETEC MICKEY Not Available [facility] [place] [facility] [address] [place], [address], 05/06/2023 17:09:56 04/29/19 24 05/06/2023 FACTO R V (LEID EN) MUTAT ION KATHY SIS interpretati on SEE BELOW INTER PRETA TION: This indiv idual is negat gerson (norm al) for the Facto r V Leide n (R506 Q) varia nt in the Facto r V gene. Incre ased risk of throm bophi rose can be cause d by a varie ty of ortiz ic and non-g eneti c facto rs not scree freddy for by this assay . Labor atory resul ts revie wed and relea sed by quali fied perso nnel. VARIA NT KATHY SIS: The Facto r V Leide n (R506 Q) varia nt [[id number] .2:c. 1601G >A (p.R5 34Q)] in the Facto r V gene is one of the most commo n cause s of inher ited throm bophi rose. This varia nt cause s resis tance to degra datio n of activ ated Facto r V prote in by activ ated Prote in C (APC) . The Facto r V Leide n (R506 Q) varia nt is detec mickey by ampli ficat ion of the selec mickey regio n of the Facto r V gene by polym erase chain react ion (PCR) and fluor escen t probe hybri dizat ion to the targe mickey regio n, follo wed by end-p oint kathy sis with a real time PCR syste m. Altho ugh rare, false posit gerson or false negat gerson resul ts may occur . All resul ts shoul d be inter prete d in skip xt of clini capri findi ngs, relev ant histo ry, and other labor atory data. Healt h care provi ders, pleas e conta ct your local [facility] ort[facility] ic couns elor or call [phone]) for ignacio tance with inter preta tion of these resul ts. This test was devel oped and its kathy tical perfo rmanc e elías cteri stics have been deter mined by [facility] Jeremias Kan tranjuan f . It has not been clear ed or appro issac by the FDA. This assay has been valid ated pursu ant to the CLIA regul ation s and is used for clini capri purpo ses. Not Available [facility] [place] [facility] [address] [facility], [place], [address], 05/06/2023 17:09:56 04/29/19 24 05/06/2023 LUPUS ANTIC OAGUL ANT EVALU ATION WITH REFLE X lupus anticoagulan t not detect ed A Lupus Antic oagul ant is detec mickey since one of the two confi rmato ry tests is posit gerson. Lupus Antic oagul ants (LA) may be assoc iated with throm botic event s, recur rent abort ion, or may be asymp tomat ic. A bleed ing histo ry requi res other coagu lopat hies be exclu ded. Since LA may be trans ient, inter natio nal conse nsus guide lines sugge st waiti ng at least 12 weeks befor e retes ting to confi rm antib juan persi stenc e. (J Throm b Haemo st 2006: 4; 295). NOTE: Direc t oral antic oagul ant thera py may cause false posit gerson resul ts. For more infor faustino de la rosa on this test, go to: http: //victorina mas stdia gnost ics.c om/fa q/FAQ 01v2 (This link is being provi ded for infor faustino solis/ educa brooks l purpo ses only. ) ----- ----- ----- ----- ----- ----- ----- ----- ----- ----- ----- - This inter preta tion is based on the follo wing test resul ts: Not Available [facility] [place] [facility] [address] [place], [address], 05/06/2023 17:09:56 04/29/19 24 05/06/2023 LUPUS ANTIC OAGUL ANT EVALU ATION WITH REFLE X PTT-la screen 53 sec < or = 40 high Not Available [facility] [place] [facility] [address] [place], [address], 05/06/2023 17:09:56 04/29/19 24 05/06/2023 LUPUS ANTIC OAGUL ANT EVALU ATION WITH REFLE X drvvt screen 64 sec < or = 45 high Not Available [facility] [place] [facility] [address], [place], [address], 05/06/2023 17:09:56 04/29/19 24 05/06/2023 HEXAG ONAL PHASE CONFI RM hexagonal phase confirm WEAKLY POSITI VE negati ve abnormal Not Available [facility] [address] [facility] [place], [address], 05/06/2023 17:09:57 04/29/19 24 05/06/2023 THROM BIN CLOTT ING TIME thrombin clotting time 18 sec 13-19 normal Not Available [facility] [address] [place], [address], 05/06/2023 17:09:57 04/29/19 24 05/06/2023 DRVVT CONFI RM drvvt confirm NEGATI VE negati ve normal Not Available [facility] [address] [place] [address], [address], 05/06/2023 17:09:58 05/13/19 24 05/13/2023 colon cance r scree donna, stool cologuard negati ve normal Not Available [facility] (Cologuard Orders Only) [address], [place], [address], 05/20/2023 06:43:28 06/09/19 25 06/09/2024 LIPID PANEL , STAND MARCELINO cholesterol, total 213 mg/dL <200 high Not Available [facility] [address] [facility] [place], [address], 06/09/2024 10:01:15 06/09/19 25 06/09/2024 LIPID PANEL , STAND MARCELINO HDL cholesterol 47 mg/dL > or = 40 normal Not Available [facility] [address] [place], [address], 06/09/2024 10:01:15 06/09/19 25 06/09/2024 LIPID PANEL , STAND MARCELINO triglyceride s 192 mg/dL <150 high Not Available [facility] [place] [facility] [address], [place], [address], 06/09/2024 10:01:06/09/1906/09/2024 LIPID PANEL , STAND MARCELINO LDL-choleste rol 133 mg/dL _(capri c) high Refer ence range : <100 Michael able range <100 mg/dL for prima ry preve ntion ; <70 mg/dL for patie nts with CHD or diabe tic patie nts with > or = 2 CHD risk facto rs. LDL-C is now calcu lated using the Ally n-Hop kins calcu latio n, which is a valid ated novel gretchen tony joellen r accur acy than the Fried emily equat ion in the estim ation of LDL-C . Ally de la rosa SS et al. DEVORAH. 2013; 310(1 9): 2061- 2068 (http ://ed ucati on.Qu Violeta [employer]. [employer]/f aq/FA Q164) Not Available [facility] [place] [facility] [address], [place], [address], 06/09/2024 10:01:06/09/1906/09/2024 LIPID PANEL , STAND MARCELINO chol/HDLC ratio 4.5 (calc ) <5.0 normal Not Available [facility] [place] [facility] [address], [place], [address], 06/09/2024 10:01:06/09/1906/09/2024 LIPID PANEL , STAND MARCELINO non HDL cholesterol 166 mg/dL _(capri c) <130 high For patie nts with diabe joleen plus 1 major ASCVD risk facto r, treat ing to a non-H DL-C goal of <100 mg/dL (LDL- C of <70 mg/dL ) is consi dered a thera peuti c optio n. Not Available [facility] [place] [facility] [address], [place], [address], 06/09/2024 10:01:15 06/09/19 25 06/09/2024 COMPR EHENS GERSON METAB OLIC PANEL glucose 88 mg/dL 65-99 normal Fasti ng refer ence inter shae Not Available [facility] [place] [facility] [address] [place], [address], 06/09/2024 10:01:15 06/09/19 25 06/09/2024 COMPR EHENS GERSON METAB OLIC PANEL urea nitrogen (BUN) 16 mg/dL 7-25 normal Not Available [facility] [place] [facility] [address] [place], [address], 06/09/2024 10:01:15 06/09/19 25 06/09/2024 COMPR EHENS GERSON METAB OLIC PANEL creatinine 1.11 mg/dL 0.70-1 .30 normal Not Available [facility] [place] [facility] [address] [place], [address], 06/09/2024 10:01:15 06/09/19 25 06/09/2024 COMPR EHENS GERSON METAB OLIC PANEL eGFR 79 mL/mi n/1.7 3m2 > or = 60 normal Not Available [facility] [place] [facility] [address] [place], [address], 06/09/2024 10:01:15 06/09/19 25 06/09/2024 COMPR EHENS GERSON METAB OLIC PANEL BUN/creatini ne ratio SEE NOTE: (calc ) 6-22 Not Repor mickey: BUN and Creat inine are withi n refer ence range . Not Available [facility] [place] [facility] [address] [place], [address], 06/09/2024 10:01:15 06/09/19 25 06/09/2024 COMPR EHENS GERSON METAB OLIC PANEL sodium 139 mmol/ L 135-14 6 normal Not Available [facility] [place] [facility] [address] [place], [address], 06/09/2024 10:01:15 06/09/1906/09/2024 COMPR EHENS GERSON METAB OLIC PANEL potassium 4.3 mmol/ L 3.5-5. 3 normal Not Available [facility] [address] [facility] [place], [address], 06/09/2024 10:01:06/09/1906/09/2024 COMPR EHENS GERSON METAB OLIC PANEL chloride 103 mmol/ L 98-110 normal Not Available [facility] [address] [facility] [place], [address], 06/09/2024 10:01:06/09/1906/09/2024 COMPR EHENS GERSON METAB OLIC PANEL carbon dioxide 29 mmol/ L 20-32 normal Not Available [place] [address] [facility] [place], [address], 06/09/2024 10:01:06/09/1906/09/2024 COMPR EHENS GERSON METAB OLIC PANEL calcium 9.3 mg/dL 8.6-10 .3 normal Not Available [facility] [place], [address], 06/09/2024 10:01:06/09/1906/09/2024 COMPR EHENS GERSON METAB OLIC PANEL protein, total 7.1 g/dL 6.1-8. 1 normal Not Available [facility] [address] [facility] [place], [address], 06/09/2024 10:01:06/09/1906/09/2024 COMPR EHENS GERSON METAB OLIC PANEL albumin 4.2 g/dL 3.6-5. 1 normal Not Available [facility] [place], [address], 06/09/2024 10:01:06/09/1919 0606/09/2024 COMPR EHENS GERSON METAB OLIC PANEL globulin 2.9 g/dL_ (calc ) 1.9-3. 7 normal Not Available [facility] [address] [facility] [place], [address], 06/09/2024 10:01:15 06/09/19 25 06/09/2024 COMPR EHENS GERSON METAB OLIC PANEL albumin/glob ulin ratio 1.4 (calc ) 1.0-2. 5 normal Not Available [facility] [address] [place], [address], 06/09/2024 10:01:06/09/19 25 06/09/2024 COMPR EHENS GERSON METAB OLIC PANEL bilirubin, total 1.1 mg/dL 0.2-1. 2 normal Not Available [facility] [address] [place], [address], 06/09/2024 10:01:15 06/09/19 25 06/09/2024 COMPR EHENS GERSON METAB OLIC PANEL alkaline phosphatase 78 U/L 35-144 normal Not Available [facility] [address] [place], [address], 06/09/2024 10:01:15 06/09/19 25 06/09/2024 COMPR EHENS GERSON METAB OLIC PANEL AST 17 U/L 10-35 normal Not Available [facility] [address] [place], [address], 06/09/2024 10:01:15 06/09/19 25 06/09/2024 COMPR EHENS GERSON METAB OLIC PANEL ALT 17 U/L 9-46 normal Not Available [facility] [address] [place], [address], 06/09/2024 10:01:15 06/09/1906/09/2024 TSH TSH 2.91 mIU/L 0.40-4 .50 normal Not Available [facility] [place] [facility] [address] [facility] [place], [address], 06/09/2024 10:01:16 06/09/1906/09/2024 CBC (INCL UDES DIFF/ PLT) white blood cell count 6.2 thous and/u L 3.8-10 .8 normal Not Available [facility] [place] [facility] [address] [facility] [place], [address], 06/09/2024 10:01:06/09/1906/09/2024 CBC (INCL UDES DIFF/ PLT) red blood cell count 4.91 faheem on/uL 4.20-5 .80 normal Not Available [facility] [address] [facility] [place], [address], 06/09/2024 10:01:06/09/1906/09/2024 CBC (INCL UDES DIFF/ PLT) hemoglobin 16.0 g/dL 13.2-1 7.1 normal Not Available [facility] [place] [address] [facility] [place], [address], 06/09/2024 10:01:06/09/1906/09/2024 CBC (INCL UDES DIFF/ PLT) hematocrit 45.8 % 38.5-5 0.0 normal Not Available [facility] [facility] [place], [address], 06/09/2024 10:01:06/09/1906/09/2024 CBC (INCL UDES DIFF/ PLT) MCV 93.3 fL 80.0-1 00.0 normal Not Available [facility] [address] [facility] [place], [address], 06/09/2024 10:01:17 06/09/1906/09/2024 CBC (INCL UDES DIFF/ PLT) MCH 32.6 pg 27.0-3 3.0 normal Not Available [facility] [place] [facility] [address] [facility] [place], [address], 06/09/2024 10:01:06/09/1906/09/2024 CBC (INCL UDES DIFF/ PLT) MCHC 34.9 g/dL 32.0-3 6.0 normal For adult s, a sligh t decre ase in the calcu lated MCHC value (in the range of 30 to 32 g/dL) is most likel y not clini jj signi fican t; emiliano er, it shoul d be inter prete d with cauti on in corre [facility] n with other red cell micah eters and the patie nt's clini capri condi tion. Not Available [facility] [place] [facility] [address] [facility] [place], [address], 06/09/2024 10:01:06/09/1906/09/2024 CBC (INCL UDES DIFF/ PLT) RDW 12.3 % 11.0-1 5.0 normal Not Available [facility] [place] [facility] [address] [facility] [place], [address], 06/09/2024 10:01:06/09/1906/09/2024 CBC (INCL UDES DIFF/ PLT) platelet count 395 thous and/u L 140-40 0 normal Not Available [facility] [place] [facility] [address] [place], [address], 06/09/2024 10:01:06/09/1906/09/2024 CBC (INCL UDES DIFF/ PLT) MPV 9.8 fL 7.5-12 .5 normal Not Available [facility] [place] [facility] [address] [facility] [facility], [place], [address], 06/09/2024 10:01:06/09/1906/09/2024 CBC (INCL UDES DIFF/ PLT) absolute neutrophils 2486 cells /uL 1500-7 800 normal Not Available [facility] [place] [facility] [address], [place], [address], 06/09/2024 10:01:17 06/09/1906/09/2024 CBC (INCL UDES DIFF/ PLT) absolute lymphocytes 2424 cells /uL 850-39 00 normal Not Available [facility] [place] [facility] [address], [place], [address], 06/09/2024 10:01:06/09/19 25 06/09/2024 CBC (INCL UDES DIFF/ PLT) absolute monocytes 806 cells /uL 200-95 0 normal Not Available [facility] [place] [facility] [address], [place], [address], 06/09/2024 10:01:17 06/09/1906/09/2024 CBC (INCL UDES DIFF/ PLT) absolute eosinophils 434 cells /uL 15-500 normal Not Available [facility] [place] [facility] [address], [place], [address], 06/09/2024 10:01:06/09/1906/09/2024 CBC (INCL UDES DIFF/ PLT) absolute basophils 50 cells /uL 0-200 normal Not Available [facility] [place] [facility] [address], [place], [address], 06/09/2024 10:01:06/09/1906/09/2024 CBC (INCL UDES DIFF/ PLT) neutrophils 40.1 % normal Not Available [facility] [place] [facility] [address], [place], [address], 06/09/2024 10:01:06/09/1906/09/2024 CBC (INCL UDES DIFF/ PLT) lymphocytes 39.1 % normal Not Available [facility] [place] [facility] [address], [place], [address], 06/09/2024 10:01:17 06/09/19 25 06/09/2024 CBC (INCL UDES DIFF/ PLT) monocytes 13.0 % normal Not Available [facility] [place] [facility] [address] [place], [address], 06/09/2024 10:01:17 06/09/19 25 06/09/2024 CBC (INCL UDES DIFF/ PLT) eosinophils 7.0 % normal Not Available [facility] [place] [facility] [address] [place], [address], 06/09/2024 10:01:17 06/09/19 25 06/09/2024 CBC (INCL UDES DIFF/ PLT) basophils 0.8 % normal Not Available [facility] [place] [facility] [address] [place], [address], 06/09/2024 10:01:17 06/09/19 25 06/09/2024 PSA, TOTAL PSA, total 0.33 NG/mL < or = 4.00 normal The total PSA value from this assay syste m is stand ardiz ed again st the WHO stand marcelino. The test resul t will be appro ximat dean 20% lower when rosalba red to the equim olar- stand ardiz ed total PSA ([place] man Coult er). Rosalba rison of seria l PSA resul ts shoul d be inter prete d with this fact in mind. This test was perfo rmed using the Sieme ns chemi lumin escen t metho d. Value s obtai freddy from diffe rent assay metho ds canno t be used inter mccoy eably . PSA level s, regar dless of value , shoul d not be inter prete d as absol [place] evide nce of the prese nce or absen ce of disea se. Not Available [facility] [place] [facility] [address] [place], [address], 06/09/2024 10:01:17 04/03/19 24 04/03/2023 XR, chest , 2 view No observ ation record ed. [facility] [address], [place], [address], 04/03/2023 13:24:03 05/02/19 24 05/02/2023 XR, chest , 2 view No observ ation record ed. [facility] [address], [place], [address], 05/14/2023 12:11:36 05/02/19 24 05/02/2023 US, duple x, venou s, lower extre mity, [facility]ila [facility] [address] [place] [address] Phone: Fax: Name: ASHLEY BETANCUR Exam Date: 05/02/19 24 : 1969 Age 53 years Gender : M Access ion: [id number] Physic jocy: RONNI N, LEIGHTON Shaffer Facili ty: [facility] Facili ty HSV: Outpat ient Exam: VENOUS DUPLEX LOWER BILATE RAL DUPLEX VENOUS SONOGR APHY OF THE LOWER EXTREM ITIES HISTOR Y: Histor y of pulmon milla emboli sm Multip le transv erse and longit udinal scans were perfor med of the femoro poplit eal deep venous system s bilate rally, with augmen tation and compre ssion maneuv ers. Normal phasic flow was noted in the visual ized deep venous system s no intral uminal increa sed echoge nicity is noted to sugges t thromb us. There is normal compre ssion and augmen tation of the venous struct ures. No abnorm al venous collat erals are seen. IMPRES DK: No eviden ce of deep venous thromb osis of the lower extrem ities. Films review ed , interp reted and dictat ed by Dr. Shala Navarrete . Transc ribed by Malachi Desouza PA-C. Dictat ed By: SHALA NAVARRETE Transc ribed By: SHALA NAVARRETE Transc ribed On: 05/02/19 4:15 PM Electr onical ly signed by: SHALA NAVARRETE 05/02/19 Thank you for referr ing ASHLEY BETANCUR to [facility]. Legall y authen ticate d by ROSALBA Rodrigues MD 2023-0 05-01 16:15: 43 CC'ed Logic: Orderi ng Provid er: RONNI Shaffer CC Provid er: RONNI Shaffer Attend ing Provid er: RONNI Shaffer Referr ing Provid er: RONNI Shaffer Admitt ing Provid er: RONNI chen1 [facility] (Radiology) [address] [place], [address], 05/14/2023 12:11:37 08/12/19 24 08/12/2023 LDCT, chest , for lung cance r scree donna [facility] [address] [facility] [place] [address] Phone: Fax: Name: ASHLEY BETANCUR Exam Date: 024 : 1969 Age 53 years Gender : M Access ion: [id number] Physic jocy: LEIGHTON SILVERIO Facili ty: [facility] Facili ty HSV: Outpat ient Exam: CT CHEST LOW DOSE CT SCAN OF THE CHEST SCREEN [facility] AL HISTOR Y: 25 pack-y ear smokin g histor y in a patien t who quit smokin g 13 years prior. COMPAR RENETTA: None PROCED URE: Axial images were obtain ed from the lung apex to the mid abdome n with a low-do se chest screen ing protoc ol. CTDIvo L is 2.36 mGy and DLP is 86.75 mGy-cm . FINDIN GS: There is no axilla ry adenop athy. There is no hilar or medias tinal adenop athy. Heart size is mildly enlarg ed. There is dilata tion of the ascend ing aorta measur ing 4 cm. The descen ding aorta is normal in calibe r at 2.5 cm. There is eviden ce of old granul omatou s diseas e. There is no perica rdial or pleura l effusi on. There is a small hiatal hernia . There is apical pleura l thicke donna. There is a 3 mm right upper lobe nodule on image 68. Impres dk: 3 mm right upper lobe pulmon milla nodule . Mild dilata tion of the ascend ing aorta. Lung-R ADS catego ry 2S: Contin ued low-do se chest CT survei llance recomm ended in 1 year. Films review ed and interp reted by Dr. Leighton Arguelles. Transc ribed by Derek Huffman, PAC. Dictat ed By: LEIGHTON ARGUELLES Transc ribed By: LEIGHTON ARGUELLES Transc ribed On: 10:07 AM Electr onical ly signed by: LEIGHTON ARGUELLES [facility] Legall y authen ticate d by POPE LEIGHTON Capps DO 08-11 10:07: 29 CC'ed Logic: Orderi ng Provid er: RONNI Shaffer CC Provid er: RONNI Shaffer Attend ing Provid er: RONNI Shaffer Referr ing Provid er: RONNI Shaffer Admitt ing Provid er: RONNI chen[address] [place] [address] (Radiology) [address] [place] [address] [place], [address], 08/12/2023 20:25:53 Result Notes Documentation Provider Name and Address Organization Details Recorded Time Ldct, Chest, For Lung Cancer Screening : [address] [place] [address] Name: ASHLEY DANIEL Exam Date: 08/12/2023 : 1970 Age 53 years Gender: M Physician: ERNESTINE ARORA Facility: [facility] Facility HSV: Outpatient Exam: CT CHEST LOW DOSE CT SCAN OF THE CHEST SCREENING CLINICAL HISTORY: 25 pack-year smoking history in a patient who quit smoking 13 years prior. COMPARISON: None PROCEDURE: Axial images were obtained from the lung apex to the mid abdomen with a low-dose chest screening protocol. CTDIvoL is 2.36 mGy and DLP is 86.75 mGy-cm. FINDINGS: There is no axillary adenopathy. There is no hilar or mediastinal adenopathy. Heart size is mildly enlarged. There is dilatation of the ascending aorta measuring 4 cm. The descending aorta is normal in caliber at 2.5 cm. There is evidence of old granulomatous disease. There is no pericardial or pleural effusion. There is a small hiatal hernia. There is apical pleural thickening. There is a 3 mm right upper lobe nodule on image 68. Impression: 3 mm right upper lobe pulmonary nodule. Mild dilatation of the ascending aorta. Lung-RADS category 2S: Continued low-dose chest CT surveillance recommended in 1 year. Films reviewed and interpreted by Dr. Leighton Arguelles. Transcribed by HYACINTH Carty. Dictated By: LEIGHTON ARGUELLES Transcribed By: LEIGHTON ARGUELLES Transcribed On: 08/12/2023 10:07 AM Electronically signed by: LEIGHTON ARGUELLES 08/12/2023 Thank you for referring ASHLEY DANIEL to [facility]. Legally authenticated by POPE LEIGHTON Capps DO 2023-08-12 10:07:29 CC'ed Logic: Ordering Provider: MAITE BARCLAY CC Provider: MAITE BARCLAY Attending Provider: MAITE BARCLAY Referring Provider: MAITE BARCLAY Admitting Provider: MAITE Arora MD [address], [address], [place] [facility] 08/12/2023 20:25:53 Problems Name Problem SNOMED Code Status Onset Date Resolution Date Notes Provider Name and Address Organization Details Recorded Time Anxiety state 153745644 Active Ernestine Arora MD [address], [address] , [place] [facility] 6 11:05:20 Chronic lymphadenitis 19726364 Active Not Available [facility] 3 03:01:06 Recurrent major depressive episodes, in full remission Active Ernestine Arora MD [address], [address] , [place] - [facility] 5 17:22:23 Chronic tonsillitis 57590359 Active Not Available [facility] 3 03:01:06 Depressive disorder 68131168 Active Not Available [facility] 3 03:01:06 Problem Notes None recorded. Procedures Surgical History Date Name Laterality Status Provider Name and Address Organization Details Recorded Time 1 Tonsillectomy completed Ernestine Arora MD 2017 [facility], [place], [address], [place] [facility] 12/02/2015 15:26:58 0 Knee Surgery completed Not Available [facility] 011 04:58:32 9 Other completed Not Available [facility] 1 04:58:32 Imaging Results None recorded. Procedure Notes None recorded. Medical Equipment None Reported. Allergies Allergen ID Allergen Name Allergen Category Reaction Reaction Severity Criticality Documentation Date Start Date Code Code System Note Provider Name and Address Organization Details Recorded Time 80243 Product containin g 3-hydroxy -3-methyl glutaryl- coenzyme A reductase inhibitor (product) medicatio n myalgias (muscle pain) severe Not available 01/27/2018 29597 009 SNOMED Ernestine Arora MD 2016 [facility], [place], [address], [place] [facility] 8 19:37:23 Medications Name Sig Start [...] Available Not Available No t Available Flucelvax 2934-3071 (PF) 45 mcg (15 mcg x 3)/0.5 [...] and Address Organization Details Last Updated DateTime 4 185.42 cm 25.8 kg/m2 00859.3 1 g 87 /min 95 % 95 % 97.3 [degF] 121 mm[Hg] 79 mm[Hg] [facility] 4 14:21:00 Date Recorded Body height Body mass index (BMI) Body weight Heart rate Oxygen saturation Oxygen saturation in Arterial blood by Pulse oximetry Body temperature Systolic blood pressure Diastolic blood pressure Provider Name and Address Organization Details Last Updated DateTime 4 185.42 cm 25.7 kg/m2 66100.5 1 g 82 /min 95 % 95 % 97.3 [degF] 133 mm[Hg] 90 mm[Hg] [place] [facility] 4 11:17:10 Date Recorded Body height Body mass index (BMI) Body weight Heart rate Oxygen saturation Oxygen saturation in Arterial blood by Pulse oximetry Body temperature Systolic blood pressure Diastolic blood pressure Provider Name and Address Organization Details Last Updated DateTime 4 185.42 cm 26 kg/m2 18220.4 g 79 /min 98 % 98 % 97.9 [degF] 128 mm[Hg] 90 mm[Hg] [facility] 4 11:32:47 Date Recorded Body height Body mass index (BMI) Body weight Heart rate Oxygen saturation Oxygen saturation in Arterial blood by Pulse oximetry Body temperature Systolic blood pressure Diastolic blood pressure Provider Name and Address Organization Details Last Updated DateTime 5 185.42 cm 27.4 kg/m2 52222.2 1 g 95 /min 98 % 98 % 97.3 [degF] 122 mm[Hg] 86 mm[Hg] [facility] 5 09:23:02 Date Recorded Body height Body mass index (BMI) Body weight Heart rate Oxygen saturation Oxygen saturation in Arterial blood by Pulse oximetry Body temperature Systolic blood pressure Diastolic blood pressure Provider Name and Address Organization Details Last Updated DateTime 4 185.42 cm 27.2 kg/m2 30741.0 3 g 91 /min 98 % 98 % 97.2 [degF] 134 mm[Hg] 94 mm[Hg] [facility] 4 10:15:46 Social History Question Answer Notes LastModified by Organizat ion Details LastModified Time Tobacco Smoking Status Former Smoker quit 02-23-11 Not Available [facility] 12/22/2019 03:11:19 Do You Have An Advance Directive? No [id number] Information not available 12/22/2019 Is Blood Transfusion Acceptable In An Emergency? Yes [id number] Information not available 12/22/2019 What Is Your Level Of Caffeine Consumption? Moderate Information not available 06/15/2024 How Much Tobacco Do You Chew? None [id number] Information not available 12/22/2019 Diabetes No DBA_PATCH_ 1 15 Information not available 01/09/2011 What Type Of Diet Are You Following? REGULAR [id number] Information not available 12/22/2019 Which Illicit Or Recreational Drugs Have You Used? None [id number] Information not available 12/22/2019 Education 12 DBA_PATCH_ 1 15 Information not available 01/09/2011 What Is The Highest Grade Or Level Of School You Have Completed Or The Highest Degree You Have Received? [id number] Information not available 04/11/2021 Who Is Your Employer? [employer] Information not available 04/11/2021 Family History Of Heart Disease? No 15 Information not available 01/09/2011 Live Alone Or With Others? With Others 15 Information not available 01/09/2011 Marital Status DBA_PATCH_ 111 15 Information not available 01/09/2011 What Was The Date Of Your Most Recent Tobacco Screening? 06/15/2024 Information not available 06/15/2024 How Many Children Do You Have? 5 [id number] Information not available 12/22/2019 What Is Your Relationship Status? Information not available 04/11/2021 At What Age Did You Start Smoking Tobacco? 16 [id number] Information not available 12/22/2019 How Much Tobacco Do You Smoke? No [id number] Information not available 12/22/2019 General Stress Level Medium 15 Information not available 01/09/2011 How Many Years Have You Smoked Tobacco? 25 [id number] Information not available 12/22/2019 Sex: Male Functional Status Question Answer Note LastModified by Organizat ion Details LastModified Time What is your level of alcohol consumption? Moderate 3-4 beer per day [id number] Information not available 12/22/2019 Do you or have you ever used smokeless tobacco? Never used smokeless tobacco [id number] Information not available 12/22/2019 Are you currently employed? Yes [id number] Information not available 12/22/2019 Are you able to care for yourself? Yes [id number] Information not available 12/22/2019 What is your occupation? [employer] Information not available 04/11/2021 Do you or have you ever used e-cigarettes or vape? Never used electronic cigarettes [id number] Information not available 12/22/2019 What is your exercise level? Moderate [id number] Information not available 12/22/2019 Mental Status None [...] Stones N Blood Diseases N Hyperthyroidism N Depression N Hypothyroidism N COPD N Developmental or Behavioral Disorders N Eczema, [...] N Seizures/Epilepsy N Tuberculosis N Diverticulitis N Allergies N Asthma N GERD/Reflux N Heart Disease N Pulmonary Embolism N Hypertension N Osteoporosis N Chicken Pox N Immunizations Vaccine Type Date Status Note Provider Nam e and Address Organization Details Recorded Time Influenza, split virus, quadrivalent, preservative 7 completed Not Available [facility] 03/14/2019 02:12:14 Influenza, split virus, quadrivalent, PF 8 completed Not Available [facility] 03/14/2019 02:12:13 Hep A, adult 8 completed Not Available [facility] 03/14/2019 02:12:07 Influenza, recombinant, quadrivalent, PF 9 completed [facility] 03/14/2019 02:12:11 Hep A, adult 9 completed Not Available [facility] 03/14/2019 02:12:07 Influenza, split virus, quadrivalent, preservative 4 completed [place] [facility] 01/28/2014 16:12:02 Influenza, recombinant, quadrivalent, PF 1 completed Not Available [facility] 12/15/2020 14:42:49 zoster recombinant 2 completed Not Available [facility] 04/28/2021 12:01:12 zoster recombinant 3 completed Ernestine Arora MD [address] [place] [address], [place], [place], [address] [place] [address], [place] [facility] 04/24/2022 21:26:54 Influenza, split virus, quadrivalent, PF 3 completed Not Available [facility] 11/23/2022 13:45:34 pneumococcal polysaccharide PPV23 4 completed Ernestine Arora MD [address] [place] [address], [place], [address] [place] [address], [place] - [facility] 05/16/2023 18:09:35 Influenza, split virus, quadrivalent, preservative 6 completed Not Available [facility] 03/28/2019 02:12:33 Tdap 4 completed Rosaline hummel, [place] - [facility] 12/02/2015 15:43:14 Tdap 4 completed Ernestine Arora MD [address] [address], [place], [place], [address] [place] [address], [place] [facility] 12/07/2023 23:34:50 Influenza, split virus, trivalent, PF 4 completed Ernestine Arora MD [address] [place] [address], [place], [address] [place] [address], [place] - [facility] 12/07/2023 23:34:50 Influenza, split virus, quadrivalent, preservative 0 completed Ernestine Arora MD [address] [address], [place], [address], [place] - [facility] 02/11/2020 22:53:40 COVID-19 vaccine, vector-nr, rS-Ad26, PF, 0.5 mL 1 completed [place] [facility] 04/11/2021 09:06:44 Influenza, split virus, quadrivalent, preservative 2 completed Ernestine Arora MD [address] [place] [address], [address], [place] [facility] 12/24/2021 22:44:08 Influenza, split virus, trivalent, preservative 2 completed Not Available [facility] 03/14/2019 02:12:11 Past Encounters Encounter ID Performer Location Encounter Start Date Encounter Closed Date Diagnosis/Indication Diagnosis SNOMED-CT Code Diagnosis ICD10 Code Diagnosis Note [id number] Ernestine Arora MD [address] [address] 12/04/2010 15:03:03 12/06/2010 03:49:45 [id number] Ernestine Arora MD [address] [address] 07/06/2011 15:09:14 07/06/2011 17:25:48 [id number] Ernestine Arora MD [address] [address] 01/07/2012 15:05:47 01/07/2012 17:29:32 [id number] Ernestine Arora MD [address] [address] 11/20/2013 15:04:13 11/20/2013 16:49:49 Adult health examination 394185199 [id number] Ernestine Arora MD [address] [address] 10/25/2014 15:25:23 10/26/2014 08:51:05 Adult health examination 941136045 Recurrent major depressive episodes, in full remission 956142565 Anxiety state 364061367 [id number] Ernestine Arora MD [facility] [address] [address] 12/02/2015 14:31:20 12/02/2015 17:00:01 Adult health examination 448035317 Z00.00 Hyperlipidemia 57801274 E78.5 Medial epicondylitis 532 32751 M77.01 Anxiety disorder 2588830 06 F41.9 Vertigo 196367644 R42 [id number] Ernestine Arora MD [facility] [address] [address] 02/23/2016 10:41:24 02/23/2016 15:29:38 Chronic back pain 228445971 M54.9 [id number] Ernestine Arora MD [facility] [address] [address] 01/11/2017 16:14:23 01/14/2017 08:33:58 Adult health examination 272594974 Z00.01 Abnormal b lood pressure 18374587 Z01.31 Hyperlipidemia 44254897 E78.5 Body mass index 20-24 - normal 627099968 Z68.24 [id number] Ernestine Arora MD [place] [id number] 7 01/24/2018 16:02:24 01/28/2018 08:16:59 Adult health examination 716823108 Z00.01 Hyperlipidemia 52743263 E78.5 Abnormal t hyroid hormone 188780681 R94.6 Abnormal b lood pressure 80293605 Z01.31 Body mass index 25-29 - overweight 211909532 Z68.25 [id number] Ernestine Arora MD [address] [address] 01/27/2019 13:26:54 01/30/2019 08:21:36 Adult health examination 867805368 Z00.01 Hyperlipidemia 66477777 E78.5 Body mass index 20-24 - normal 883039064 Z68.23 Insomnia 867856308 G47.0 0 Active or passive immunization 147771006 Z23 [id number] Ernestine Arora MD [address] [address] 02/11/2020 11:01:33 02/11/2020 23:00:05 Total bilirubin above reference range 1057136279 75287 R17 Gilbert's syndrome 13835 000 E80.4 Vertigo 209763668 R42 Abnormal b lood pressure 98270713 Z01.31 Screening for malignant neoplasm of colon 631175345 Z12.11 Adult heal th examination 453242572 Z00.01 Hyperlipidemia 56258527 E78.5 Body mass index 20-24 - normal 700249984 Z68.24 Insomnia 419485888 G47.0 0 [id number] Ernestine Arora MD [facility] [address] [address] 05/05/2020 15:22:10 05/09/2020 08:15:45 Essential hypertension 87248989 I10 [id number] Ernestine Arora MD [facility] [address] [address] 08/19/2020 16:03:31 08/22/2020 09:42:08 Essential hypertension 05463481 I10 Insomnia 663668484 G47.0 0 He is going to try to cut xanax to .25 mg qhs [id number] Ernestine Arora MD [facility] [facility] [address] [address] 04/11/2021 09:02:34 04/13/2021 09:23:11 Persistent insomnia 567247608 G47.09 Adult heal th examination 552934775 Z00.01 Abnormal b lood pressure 80792125 Z01.31 Screening for malignant neoplasm of colon 710891055 Z12.11 Hyperlipidemia 53448314 E78.5 Body mass index 25-29 - overweight 223661491 Z68.27 Ankylosing spondylitis 3006567 M45.7 Immunosupp ressive therapy 74002156 D84.9 Immunization advised 310 837784 Z71.9 [id number] Ernestine Arora MD [facility] [address] [address] 7 09/19/2021 15:17:22 09/21/2021 09:55:33 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.4 [id number] Ernestine Arora MD [facility] [address] [address] 7 12/22/2021 15:35:11 12/25/2021 10:59:38 Chronic gingivitis 54695136 K05.10 Acute cerv ical adenitis 307386644 L04.0 History of vertigo 81870 3009 Z86.69 [id number] Ernestine Arora MD [address] [address] 7 04/23/2022 09:28:02 04/26/2022 09:32:21 Adult health examination 492746322 Z00.01 Abnormal b lood pressure 40335090 Z01.31 Screening for malignant neoplasm of colon 667664797 Z12.11 Hyperlipidemia 15677716 E78.5 Body mass index 25-29 - overweight 470306254 Z68.26 Ankylosing spondylitis 5079606 M45.7 Immunosupp ressive therapy 58547268 D84.9 Ex-smoker 7095195 Z87.89 1 Dupuytren' s disease of palm 056607547 M72.0 Active or passive immunization 258486819 Z23 [id number] Ernestine Arora MD [address] [address] 04/11/2023 14:03:17 04/17/2023 16:18:30 Community acquired pneumonia 786204888 J18.9 Patient immunocompromised 121825762 D84.9 [id number] Ernestine Arora MD [address] [address] 7 05/14/2023 10:53:03 05/17/2023 08:18:36 History of pulmonary embolus 027661854 Z86.711 Adult [facility] th examination 646626608 Z00.01 Abnormal b lood pressure 01727040 Z01.31 Hyperlipidemia 47224526 E78.5 Body mass index 25-29 - overweight 958515733 Z68.26 Ankylosing spondylitis 3807661 M45.7 Immunosupp ressive therapy 76856391 D84.9 Ex-smoker 8057201 Z87.89 1 Dupuytren' s disease of palm 253878903 M72.0 Active or passive immunization 949593542 Z23 Long-term current use of anticoagulant 866428193 Z79.01 Screening for malignant neoplasm of colon 304511689 Z12.11 Screening for cardiovascular system disease 607913361 Z13.6 [id number] Ernestine Arora MD [facility] [address] [address] 7 04/29/2023 11:09:03 04/30/2023 08:47:44 Acute pulmonary embolism 462672018 I26.99 History of pneumonia 161 231016 Z87.01 Patient immunocompromised 782164150 D84.9 Ankylosing spondylitis 2722957 M45.7 Screening for malignant neoplasm of colon 287650338 Z12.11 Anticoagulant therapy 18 4389137 Z79.01 he has plenty of eliquis [id number] Ernestine Arora MD [facility] [address] [address] 12/06/2023 10:03:29 12/09/2023 08:35:47 Active or passive immunization 151675011 Z23 Administra tion of influenza vaccine 33540756 Z23 Essential hypertension 69066532 I10 History of pulmonary embolism on long-term anticoagulation therapy 1082761453 9225122 Z86.711 [id number] Ernestine Arora MD [facility] [address] [address] 7 06/15/2024 09:09:52 06/16/2024 08:46:06 Adult health examination 247753391 Z00.01 History of pulmonary embolus 546836197 Z86.711 Abnormal b lood pressure 97391362 Z01.31 Hyperlipidemia 84250835 E78.5 Ankylosing spondylitis 4142787 M45.7 Immunosupp ressive therapy 03202217 D84.9 Ex-smoker 1038853 Z87.89 1 Dupuytren' s disease of palm 426877566 M72.0 Long-term current use of anticoagulant 004253767 Z79.01 Screening for cardiovascular system disease 647113231 Z13.6 Overweight in adulthood with body mass index of 25 or more but less than 30 706323035 Z68.27 Review of medication 182 927475 Z79.899 Health Concerns Section Related Observation LastModified by Organization Detai ls LastModified Time None Recorded Concern Status LastModified by Organization Details LastModified Time None Recorded Advance Directives Directive N: Payers Insurance Date Sequence Insurance Name Policy Number Policy Baumann Covered Member ID Baumann Member ID Guarantor Name 04/17/2022 1 [place] ([place]) [id number] Ashley Daniel [id number] Ashley Daniel 01/11/2017 1 [facility] [id number] Kelli Daniel [id number] Ashley Daniel 06/12/2024 1 [place] [id number] Ashley Daniel [id number] Ashley Daniel 04/17/2022 [address] [facility] ([facility]) [facility] (PPO) [id number] Ashley Daniel [id number] Ashley Daniel Notes Date Note Type Note Provider Name and Address Organization Details Recorded Time 04/11/2023 text/html He started getti ng sick Mar 29 and had fevers and chills and headache. He had severe back pain as well. He finally went to [facility] on Saturday with Temp of 103.7 and all viral screens were negative. He texted me on Saturday with his symptoms and we advised him to go to ER in [place] and was found to have pneumonia and admitted overnight with IV antibiotics. Was treated with zithromax and cefdinir and completed them this week on Saturday.Now he feels like he has a head cold and still fatigued. He does not seem short of breath.Saw his tobacco curer on Saturday and was short of breath at the time. He did not need any inhalers.For now off the Humira. Ernestine Arora MD [address] [facility], [address], [place], [address], [facility] 04/12/2023 13:58:20 04/29/2023 text/html Ashley developed sudden and acute severe chest pain and shortness of breath on 04/26 while he was at work and we advise he go to ER. He was found to have bilateral pulmonary emboli and was started on Eliquis. He has recently completed treatment for a right basilar pneumonia a month ago. He had been quite fatigued from that so had several weeks of FMLA off work to recover. He had recently returned to work when this event started. He has not had leg swelling but spent about 3 weeks sedentary and resting for the most part.In the interim he has seen his tobacco curer who was unaware of the PE he just had but did recommend pulmonology referral and that is reasonable in the near future. He has had a LDCT lung cancer screen a year ago and is due again but we advised to wait a few months since he just had the CTA chest.We advised Ashley we will order tests for the possibility of a recent DVT andCovid infection that went undetected as well as testing for a tendency to have a clotting disorder especially given his history of autoimmune disorder already..He is able to take a deep breath today finally and feels like he could work. He was found to have a little thickening of the left colon area on CT but really has not had a lot of GI symptoms so we suspect this may be incidental and possibly related to the antibiotics he has been taking. Abdominal pain is gone now but he still has the discomfort in the low back/thoracic areas that is tolerable Ernestine Arora MD 2017 [facility], [address], [address], [facility] [facility] 04/30/2023 07:38:27 12/06/2023 text/html He follows up fo r his medical issues with the history of bilateral PEs. He was never diagnosed with a DVT. His severe pneumonia with very high fevers initially and within a month had the bilateral pulmonary emboli. 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 Ernestine Arora MD [address] [facility], [facility] [address], [place], [address], [facility] 12/08/2023 00:15:24
--- NOTE | 2024-08-10 06:47 | CT_ITS ---
FINAL REPORT TECHNIQUE: Axial CT images of the chest were obtained without contrast. Low-dose protocol was utilized. This study was performed with techniques to keep radiation doses as low as reasonably achievable (ALARA). Individualized dose reduction techniques using automated exposure control or adjustment of mA and/or kV according to the patient's size were employed. CLINICAL HISTORY: lung cancer screening former smoker quit 14 year ago 1/2ppd x25 years COMPARISON: CTA chest 04/27/2023 FINDINGS: CT CHEST WITHOUT, LOW DOSE SCREENING CT Di Vol: 2.90 mGy DLP: 111.25 mGy*cm There is no axillary, mediastinal, or hilar adenopathy. The heart size is normal. There is no pleural or pericardial effusion. The lung windows show 2 noncalcified nodules in the medial right upper lobe. The more anterior nodule measures 5 mm on image 22 of series 3 and the more posterior focus measures 4 mm on image 23 of series 3. A nodule along the minor fissure measuring 6 mm is seen on image 45 of series 3. There is a pleural-based nodule in the medial left lung base measuring 7 mm on image 48 of series 3. Limited images of the upper abdomen demonstrate no acute findings. IMPRESSION: Nodules as above. LR Category 3: 6 month follow-up low-dose chest CT is recommended per Fleischner criteria. Reviewed, Interpreted and Dictated by Jamarcus Hackett MD Transcribed by Chikis Siegel Authenticated and [facility]
[2024-08-10 07:15] LABS: Basophils # 0.1 K/mm3 (0-0.2); Basophils % 0.9 % (0.1-2.0); Eosinophils # 0.5 Kmm3 (0.0-0.4); Eosinophils % 7.5 % (0.1-12.0); Hematocrit 42.9 % (42.0-52.0); Hemoglobin 14.9 g/dL (14.1-18.0); Immature Granulocytes # 0.01 10^3uL; Immature Granulocytes % 0.1 %; Lymphocytes # 2.9 K/mm3 (0.7-4.5); Lymphocytes % 43.3 % (10-50); Mean Corpuscular HGB Conc 34.7 g/dL (31.8-35.4); Mean Corpuscular Hemoglobin 31.6 pg (27.0-31.2); Mean Corpuscular Volume 90.9 fl (80-94); Mean Platelet Volume 9.8 fl (7.4-10.4); Monocytes % 14.7 % (1.7-9.3); Neutrophils # 2.3 K/mm3 (1.8-7.8); Neutrophils % 33.5 % (37.0-80.0); Nucleated Red Blood Cells # 0 10^3/uL; Nucleated Red Blood Cells % 0 %; Platelet Count 350 K/mm3 (142-424); Red Blood Count 4.72 M/mm3 (4.60-6.20); Red Cell Distribution Width 12.3 % (11.5-17.5); Red Cell Distribution Width-SD 40.6 fL; White Blood Count 6.8 K/mm3 (4.8-10.8)
[2024-08-10 08:57] LABS: D-Dimer < 0.25 ug/mL (0.0-0.5)
== END 2024-08-10 23:59 | disposition home or self-care (01) ==
PROVIDERS: PCP Family Medicine; Visit Provider Internal Medicine Pulmonary Disease
DX: Z12.2 Encounter for screening for malignant neoplasm of respiratory organs (principal); R91.8 Other nonspecific abnormal finding of lung field; I26.92 Saddle embolus of pulmonary artery without acute cor pulmonale; J45.909 Unspecified asthma, uncomplicated; Z87.891 Personal history of nicotine dependence
CPT/HCPCS: 36415; 71271; 85025; 85378

== ENCOUNTER 2025-02-08 06:40 | Outpatient (CLI) | payer BC, SELFPAY ==
--- OUTSIDE RECORDS SUMMARY | 2025-02-08 06:43 | XMS_ITS | Clinical Summary ---
Author Organization [facility] Address [address] [place] [address] Care Team Providers Care Investment Banking Manager Name Role Phone Ernestine Arora MD Primary Care Provider [phone] Allergies Active Allergy Reactions Criticality Noted Date [...] [facility]-HIV Screening 1971 [facility]-Hepatitis C Screening 1971 [facility]-Infant/Child/Adol SDOH Screenings 1971 [facility]- SDOH Screenings 1989 [facility]-Adult SDOH Screenings 1989 [facility]-Hepatitis B Vaccines (1 of 3 - 19+ 3-dose series) 1990 CT Colonography 02/05/2016 Colonoscopy 02/05/2016 FIT 02/05/2016 FOBT 02/05/2016 Sigmoidoscopy 02/05/2016 BUK-[id number]-65 Vaccine (2 - Abimbola risk series) 11/03/2020 10/06/2020 [facility]-Pneumococcal Vaccine: 50+ Years (2 of 2 - PCV) 05/13/2024 05/14/2023 [facility]-Influenza Vaccine (#1) 10/26/202412/05, 11/23/2022, 12/22/2021, Additional history exists [facility]-Depression Screening 12/31/2024 01/01/2024 FIT-DNA 05/12/2026 05/13/2023 [facility]-Colorectal Cancer Screening 05/12/2026 [facility]-DTaP,Tdap,and Td Vaccines (2 - Td or Tdap) 12/05/2033 12/06/2023 [facility]-Hepatitis A Vaccines Aged Out 01/27/2019, 11/25 No longer eligible based on patient's age to complete this topic [facility]-Zoster Vaccines Completed 04/23/2022, HPV Vaccines (No Doses Required) Completed [facility]-HIB Vaccines Aged Out No longer e ligible based on patient's age to complete this topic [facility]-IPV Vaccines Aged Out No longer e ligible based on patient's age to complete this topic [facility]-Rotavirus Vaccines Aged Out No lo nger eligible based on patient's age to complete this topic Insurance ANTH Care Teams Investment Banking Manager Relationship Specialty Start Date End Date Ernestine Arora MD [address] [place] [address] [address] [place] [address] PCP - General 10/16/23
--- OUTSIDE RECORDS SUMMARY | 2025-02-08 06:43 | XMS_ITS | Clinical Summary ---
Author Organization [facility] Address [address] [place] [address] Care Team Providers Care Bariatric Physician Name Role Phone Ernestine Arora MD Primary Care Provider + Allergies Active Allergy Reactions Criticality Noted Date Comments Statins Myalgia Low 10/08/2023 Medications meclizine (ANTIVERT) 12.5 MG tablet Take 1 tablet by mouth 3 (Three) Times a Day As Needed for Dizziness. Active melatonin 5 MG sublingual tablet sublingual tablet Place under the tongue. Active amLODIPine (NORVASC) 5 MG tablet Take 1 tablet by mouth Daily. Active QUEtiapine (SEROquel) 50 MG tablet Take 1 tablet by mouth 2 (Two) Times a Day As Needed. Active Alcohol Swabs ([facility] Prep) 70 % pads use as directed 4 Active multivitamin with minerals tablet tablet Take 1 tablet by mouth Daily. Active Parenteral Therapy Supplies (SharpSafety Safety In Room[place] [facility] [place] ADALIMUMAB 4 Active apixaban (ELIQUIS) 2.5 MG tablet tablet Take 1 tablet by mouth 2 (Two) Times a Day. Active Adalimumab-adaz 40 MG/0.4ML solution auto-injector Inject 40 mg under the skin into the appropriate area as directed Every 14 (Fourteen) Days. 2.4 mL 1 5 Active Active Problems Problem Noted Date Diagnosed Date High risk medication use 10/14/2023 Assessment & Plan (10/12/2024 9:20 AM EDT): Adalimumab 40 mg every 2 weeks SQ injection for HLA B27+ ankylosing spondylitis 1. Hold if the patient develops infection. 2. Avoid live vaccines while on this medication. 3. No recent serious infections 4. No injection site reactions. 5. Also hold this medication perioperatively if the patient is going to have a surgical procedure Assessment & Plan (04/13/2024 9:19 AM EST): Adalimumab 40 mg every 2 weeks SQ injection for HLA B27+ ankylosing spondylitis 1. Hold if the patient develops infection. 2. Avoid live vaccines while on this medication. 3. No recent serious infections 4. No injection site reactions. 5. Also hold this medication perioperatively if the patient is going to have a surgical procedure Assessment & Plan (10/14/2023 10:15 AM EDT): Adalimumab 40 mg every 2 weeks SQ injection for HLA B27+ ankylosing spondylitis 1. Hold if the patient develops infection. 2. Avoid live vaccines while on this medication. 3. No recent serious infections 4. No injection site reactions. 5. Also hold this medication perioperatively if the patient is going to have a surgical procedure Ankylosing spondylitis 10/08/2023 Assessment & Plan (10/12/2024 9:20 AM EDT): * Medications/treatments/interventions tried include: Tylenol, she has seen orthopaedic surgeons, she has had knee and shoulder surgeries, ibuprofen, Adalimumab, meloxicam * 02/23/2016 HLA B27+ 1. Tylenol PRN is ok as directed 2. He has taken/tried NSAIDS Like meloxicam PRN 3. Continue/refill adalimumab 4. We will give him a lab order and an educational handout today regarding arthritis 5. Follow up with us in 6 months 6. Check labs Assessment & Plan (04/13/2024 9:19 AM EST): * Medications/treatments/interventions tried include: Tylenol, she has seen orthopaedic surgeons, she has had knee and shoulder surgeries, ibuprofen, Adalimumab, meloxicam * 02/23/2016 HLA B27+ 1. Tylenol PRN is ok as directed 2. He has taken/tried NSAIDS Like meloxicam PRN 3. Continue/refill adalimumab 4. We will give him a lab order and an educational handout today regarding arthritis 5. Follow up with us in 6 months 6. Check labs Assessment & Plan (10/14/2023 10:15 AM EDT): * Medications/treatments/interventions tried include: Tylenol, she has seen orthopaedic surgeons, she has had knee and shoulder surgeries, ibuprofen, Adalimumab, meloxicam * 02/23/2016 HLA B27+ 1. Tylenol PRN is ok as directed 2. He has taken/tried NSAIDS Like meloxicam PRN 3. Continue/refill adalimumab 4. We will give him a lab order and an educational handout today regarding ankylosing spondylitis. 5. Follow up with us in 4-6 months 6. Check labs Encounters Date Type Department Care Team Description 12/01/2024 Telephone [facility] [address] [address] Nicole Pal, PharmD from Last 3 Months Family History Medical History Relation Name Comments Coronary artery disease Brother Arthritis Father Diabetes Father Hypertension Mother Relation Name Status Comments Brother Father Mother Social History Tobacco Use Types Packs/Day Years Used Date Smoking Tobacco: Former Cigarettes 0.5 25 0 02/25/1986 - 02/23/2011 Passive Smoke Exposure: Past Smokeless Tobacco: Former Quit: 01/2011 Tobacco Cessation:Counseling Given: Not Answered Alcohol Use Standard Drinks/Week Comments Yes 12 (1 standard drink = 0.6 oz pu re alcohol) Sex and Gender Information Value Date Recorded Sex Assigned at Male 10/26/2024 2:27 PM EDT Legal Sex Male 10:12 AM EDT Gender Identity Not on file Sexual Orientation Straight 10/26/2024 2: 27 PM EDT Last Filed Vital Signs Vital Sign Reading Time Taken Comments Blood Pressure 126/84 11/02/2024 8:58 AM EDT Pulse 85 10/12/2024 8:53 AM EDT Temperature 36.6 C (97.8 F) 10/12/2024 8:53 AM EDT Respiratory Rate 16 11/17/2017 11:12 AM EDT Oxygen Saturation 98% 11/17/2017 11:12 AM EDT Inhaled Oxygen Concentration - - Weight 88.9 kg (196 lb) 11/02/2024 8:58 AM EDT Height 185.4 cm (6' 1 ) 11/02/2024 8:58 AM EDT Body Mass Index 25.86 11/02/2024 8:58 AM EDT Plan of Treatment Upcoming Encounters Date Type Department Care Team (Late st Contact Info) Description 04/19/2025 8:45 AM EST Office Visit [facility] 330 [facility] [address] [place] [address] Bruce Gastelum DO [address] [facility] [address] [place] [address] Health Maintenance Due Date Last Done Comments COLON CANCER SCREENING 5 YEA R SIGMOIDOSCOPY 02/05/2016 COLONOSCOPY 02/05/2016 CT COLONOGRAPHY 02/05/2016 FECAL OCCULT BLOOD TEST 02/05/2016 FIT Testing (1 year) 02/05/2016 ANNUAL PHYSICAL 07/09/2017 HEPATITIS C SCREENING 07/09/2017 Pneumococcal Vaccine 50+ (2 of 2 - PCV) 05/13/2024 05/14/2023 INFLUENZA VACCINE 09/25/2024 12/06/2023, , 12/22/2021, Additional history exists COLOGUARD 05/12/2026 05/13/2023, 02/28/2020 COLORECTAL CANCER SCREENING 05/12/2026 TDAP/TD VACCINES (3 - Td or Tdap) 12/05/2033 024, 09/16/2013 ZOSTER VACCINE Completed 04/23/2022, 04/28/2021 Insurance PPO Care Teams Bariatric Physician Relationship Specialty Start Date End Date Ernetsine Arora MD [address] [place] [id number] PCP - General Family Medicine 03/03/16
--- OUTSIDE RECORDS SUMMARY | 2025-02-08 06:43 | XMS_ITS ---
Author Organization [facility] Address [address] [place] [address] Care Team Providers Care Events Solutions Consultant Name Role Phone Ernestine Arora MD Primary Care Provider + Rheumatology - External Fill Status:Enrolled (Active) Start date:10/11/2023 Enrollment date:10/11/2023 Enrollment reason:Identified as being on target medication Current support & services provided:Benefits Investigation, External Pharmacy Dispensing Linked medications:Adalimumab-adaz (Active) Linked problems:Ankylosing spondylitis (Active) Continued Care and Services Coordination
--- NOTE | 2025-02-08 07:00 | CT_ITS ---
FINAL REPORT CLINICAL HISTORY: 6 month f/u nodule COMPARISON: 08/10/2024 FINDINGS: CTDI vol (mGy): One 5.67 DLP: 637.[address] images of the chest were obtained using the low-dose protocol for screening. There is no evidence of mediastinal or hilar mass or adenopathy. No axillary mass or adenopathy is identified. On the lung window images, 2 small nodules are again seen and decrease in size in the medial right upper lobe. The larger, measuring 5 mm seen on image 72 of series 3 and the smaller, measuring 3 mm as seen on image 76 of series 3. Nodule in the minor fissure measuring 4 mm on image 41 of series 3 is unchanged. The nodule at the border of the mediastinum has flattened and is barely perceptible. This is demonstrated on image 155 of series 3. IMPRESSION: Improvement of previously noted nodules, favor postinflammatory. No new mass or nodule identified. Lung RADS category 2. Recommend 12 month followup low-dose CT for further evaluation. Reviewed, Interpreted and Dictated by Jamarcus Hackett MD Transcribed by Fannie Mendieta Authenticated and [facility]
== END 2025-02-08 23:59 | disposition home or self-care (01) ==
LOC: RAD 06:41
PROVIDERS: PCP Family Medicine; Visit Provider Internal Medicine Pulmonary Disease
DX: R91.8 Other nonspecific abnormal finding of lung field (principal)
CPT/HCPCS: 71250